=== PATIENT | female | born 1950 | race Caucasian/White ===

== ENCOUNTER → 2022-02-16 | Outpatient (CLI) | payer MEDICARE, BC, SELFPAY ==
[2022-02-16 08:47] LABS: Bacteria 0 SEEN /hpf (None Seen); Mucous, Urine 0 SEEN /hpf (<or=2+); Red Blood Cells-Urine 0 SEEN /hpf (0-5); White Blood Cells 0 SEEN /hpf (0-5)
[2022-02-16 10:20] LABS: Absolute Lymphocyte Count 1.67 X10^3/uL (0.83-4.51); Absolute Neutrophil Count 3.1 X10^3/uL (2.0-7.7); Basophil# 0.04 X10^3/uL; Basophil% 0.7 % (0-1); Eosinophil# 0.13 X10^3/uL; Eosinophils% 2.4 % (0-5); Lymphocyte # 1.67 X10^3/ul (0.83-4.51); Lymphocyte % 31.1 % (19-41); Mean Corp Hgb Conc 32.6 g/dL (32-36); Mean Corpuscular Hgb 30.4 pg (27.0-32.0); Mean Corpuscular Volume 93.3 fL (81-99); Mean Platelet Vol. 9.9 fl (6.2-12.0); Monocyte# 0.42 X10^3/uL; Monocyte% 7.8 % (0-10); NRBC Flagged by Analyzer 0 % (0-5); Neutrophil # 3.09 X10^3/uL (2.7-7.7); Neutrophil % 57.6 % (47-70); Platelet Count 268 K/mm3 (150-450); RBC Distribution Width CV 12.5 % (11.6-14.6); RBC Distribution Width SD 42.9 fl (35.1-43.9); Red Blood Count 4.93 M/mm3 (4.2-5.4); White Blood Count 5.4 K/mm3 (4.4-11.0)
[2022-02-16 10:23] LABS: Color, Urine Yellow (Yellow); Glucose, Dipstick Normal (Normal); Ketone-Dipstick Negative (Negative); Leukocyte Esterase-Dipstick Negative /ul (Negative); Nitrite-Dipstick Negative (Negative); Occult Blood-Urine Negative /ul (Negative); Protein-Dipstick Negative (Negative); Urine Bilirubin Dipstick Negative (Negative); Urine Clarity Clear (Clear); Urine Urobilinogen Normal (Normal)
[2022-02-16 10:29] LABS: Protein, Urine (Random) < 6.0 mg/dL (<11.9); Protein:Creat Ratio 297 mg/g CRE (0-200)
[2022-02-16 10:34] LABS: Squamous Epithelial Cells - UA 0-5 SEEN /hpf (5-10)
[2022-02-16 10:46] LABS: ALB/GLOB Ratio 1.1 RATIO (0.9-2.4); AST(SGOT) 19 U/L (15-37); Alanine Aminotransfer ALT/SGPT 28 U/L (13-56); Albumin, Serum 3.8 g/dL (3.2-5.0); Alkaline Phosphatase 90 U/L (45-117); Anion Gap 4 (5-15); BUN 18 mg/dL (7-18); BUN/Creat Ratio 21.1 RATIO (10-20); Chloride 105 mmol/L (98-107); Cholesterol 199 mg/dL (200); Creatinine, Serum 0.85 mg/dL (0.55-1.02); EST Glomerular Filtration Rate 70 mL/min (>60); Est Glom Filt Rate - Afr Amer 84 mL/min (>60); Globulin 3.4 g/dL (2.2-4.2); Glucose 89 mg/dL (74-106); High Density Lipoprotein 61 mg/dL; Potassium 3.8 mmol/L (3.5-5.1); Protein, Total 7.2 g/dL (6.4-8.2); Sodium Level 138 mmol/L (136-145); Triglycerides 92 mg/dL; Very Low Density Lipoprotein 18 mg/dL (5-40)
[2022-02-16 11:06] LABS: Vitamin D,25 Hydroxy 69.6 ng/mL
== END | disposition home or self-care (01) ==
LOC: MFPLAB 08:44
PROVIDERS: PCP Family Medicine; Referring Provider Family Medicine; Visit Provider Family Medicine
DX: E78.00 Pure hypercholesterolemia, unspecified (principal); E55.9 Vitamin D deficiency, unspecified
CPT/HCPCS: 36415; 80053; 80061; 81001; 82306; 82570; 84156; 85025

== ENCOUNTER → 2022-03-24 | Outpatient (CLI) | payer MEDICARE, BC, SELFPAY ==
--- NOTE | 2022-03-24 14:02 | CT_ITS ---
STUDY: LOW DOSE CT LUNG CANCER SCREENING REASON FOR EXAM: Female, 71 years old. SCREENING. The patient smoked 1 pack per day for 50 years. Former smoker. Patient with one and half years ago. RADIATION DOSAGE (If Supplied By Facility): CTDIvol = ( 3.02 ) mGy, DLP = ( 112.87 ) mGycm TECHNIQUE: No contrast was administered. Low dose technique was utilized (average mAS-38 and kVp 120). 1.25 mm axial source images with a slice interval of 1.25-mm were reconstructed in lung windows. 2.5 mm axial source images with a slice interval of 2.5-mm were reconstructed in lung windows. 5.0 mm axial source images with a slice interval of 5.0-mm were reconstructed in soft tissue windows. COMPARISON: None. NODULES: No suspicious nodules are seen. Emphysema: Hyperinflation. Findings suggestive of scarring at the lung apices more prominent in the right lung apex. Findings suggest some mild linear scarring in the anterior aspect of the right upper lobe. No suspicious nodules are seen. Endobronchial lesion: Unremarkable Aorta: Atherosclerotic calcific plaques of the aortic arch. CORONARY ARTERIES: Coronary artery calcification is seen. Heart: Unremarkable Pulmonary artery: Unremarkable Mediastinal nodes: Small mediastinal benign appearing lymph nodes. Other chest and abdominal findings: Small hiatal hernia. CT/Low Dose CT Lung Screening IMPRESSION: Lung-RADS category 2 - Continue annual screening with LDCT in 12 months. IMPORTANT NOTES FOR USE: ACR Lung-RADS Version 1.1 Assessment Categories Release Date: 2018 Category: Coded 0-4 bases on nodule(s) with highest degree of suspicion. Negative screen is defined as categories 1 and 2; a positive screen is defined as categories 3 and 4. Category 3 and 4A nodules that are unchanged on interval CT should be coded as category 2, and individuals returned to screening in 12 months. Category 4X: Category 3 or 4 nodules with additional imaging findings that increase the suspicion of lung cancer, such as spiculation, GGN that doubles in size in 1 year, enlarged lymph notes, etc. Category Modifiers: S (significant finding unrelated to lung cancer) Electronically Signed: Artemio Borja MD at 14:23 EDT ,
== END | disposition home or self-care (01) ==
LOC: CT 13:43
PROVIDERS: PCP Family Medicine; Referring Provider Family Medicine; Visit Provider Family Medicine
DX: Z87.891 Personal history of nicotine dependence (principal)
CPT/HCPCS: 71271

== ENCOUNTER → 2022-05-05 | Outpatient (CLI) | payer MEDICARE, BC, SELFPAY ==
[2022-05-05 15:12] LABS: ALB/GLOB Ratio 1.1 RATIO (0.9-2.4); AST(SGOT) 21 U/L (15-37); Alanine Aminotransfer ALT/SGPT 29 U/L (13-56); Albumin, Serum 3.8 g/dL (3.2-5.0); Alkaline Phosphatase 97 U/L (45-117); Anion Gap 2 (5-15); BUN 18 mg/dL (7-18); BUN/Creat Ratio 22.1 RATIO (10-20); Calcium,Total 8.9 mg/dL (8.5-10.1); Chloride 110 mmol/L (98-107); Cholesterol 193 mg/dL (200); Creatinine, Serum 0.82 mg/dL (0.55-1.02); EST Glomerular Filtration Rate 74 mL/min (>60); Est Glom Filt Rate - Afr Amer 89 mL/min (>60); Globulin 3.4 g/dL (2.2-4.2); Glucose 92 mg/dL (74-106); High Density Lipoprotein 54 mg/dL; Potassium 3.8 mmol/L (3.5-5.1); Protein, Total 7.2 g/dL (6.4-8.2); Sodium Level 142 mmol/L (136-145); Triglycerides 153 mg/dL; Very Low Density Lipoprotein 31 mg/dL (5-40); Vitamin D,25 Hydroxy 57.3 ng/mL
== END | disposition home or self-care (01) ==
LOC: MFPLAB 11:26
PROVIDERS: PCP Family Medicine; Referring Provider Family Medicine; Visit Provider Family Medicine
DX: E78.00 Pure hypercholesterolemia, unspecified (principal); E55.9 Vitamin D deficiency, unspecified
CPT/HCPCS: 36415; 80053; 80061; 82306

== ENCOUNTER → 2022-05-24 | Outpatient (CLI) | payer MEDICARE, BC, SELFPAY ==
--- NOTE | 2022-05-24 14:05 | BI_ITS ---
MAMMOGRAPHY - BILATERAL SCREENING REASON FOR EXAM: Female, 71 years old. Routine annual screening examination. PERTINENT HISTORY: Non-contributory. TECHNIQUE: Digital bilateral breast yudi (3D mammographic acquisition) in the CC and MLO projections. 2-D mediolateral oblique (MLO) and craniocaudad (CC) views of both breasts were obtained. CAD: Full Field Digital Mammography with Computer Added Detection was performed. COMPARISON: Comparison is made with prior PET/CT examination dated 04/27/2021. FINDINGS: Breast Composition: The breasts are heterogeneously dense, which may obscure small masses. There are no dominant masses or suspicious calcifications. Stable benign-appearing bilateral axillary lymph nodes. No other significant abnormalities are identified. There has been no significant change since the prior study. BI/SCRN MAMM (CAD)W/YUDI BILAT IMPRESSION: Stable bilateral screening mammogram. Yearly follow-up mammogram recommended. (A) ASSESSMENT CATEGORY: BIRADS Category 2: Benign. A letter regarding these results will be sent to the patient by the facility within 30 days. Approximately 10% of breast cancers are not detected by mammography. A normal mammogram should not delay biopsy of a clinically suspicious abnormality. [id number] Electronically Signed: Artemio Borja MD at 15:09 EDT ,
== END | disposition home or self-care (01) ==
LOC: OPBI 14:05
PROVIDERS: PCP Family Medicine; Referring Provider Family Medicine; Visit Provider Family Medicine
DX: Z12.31 Encounter for screening mammogram for malignant neoplasm of breast (principal)
CPT/HCPCS: 77063; 77067

== ENCOUNTER → 2023-02-08 | Outpatient (CLI) | payer MEDICARE, BC, SELFPAY ==
[2023-02-08 12:31] LABS: Absolute Lymphocyte Count 1.48 X10^3/uL (0.83-4.51); Absolute Neutrophil Count 3.7 X10^3/uL (2.0-7.7); Basophil# 0.05 X10^3/uL; Basophil% 0.8 % (0-1); Eosinophil# 0.29 X10^3/uL; Eosinophils% 4.9 % (0-5); Hematocrit 47.3 % (37-47); Hemoglobin 15.3 g/dL (12.0-15.0); Lymphocyte # 1.48 X10^3/ul (0.83-4.51); Mean Corp Hgb Conc 32.3 g/dL (32-36); Mean Corpuscular Hgb 30.5 pg (27.0-32.0); Mean Corpuscular Volume 94.4 fL (81-99); Mean Platelet Vol. 9.7 fl (6.2-12.0); Monocyte# 0.39 X10^3/uL; Monocyte% 6.6 % (0-10); NRBC Flagged by Analyzer 0 % (0-5); Neutrophil # 3.69 X10^3/uL (2.7-7.7); Neutrophil % 62.5 % (47-70); Platelet Count 296 K/mm3 (150-450); RBC Distribution Width CV 12.5 % (11.6-14.6); RBC Distribution Width SD 43.1 fl (35.1-43.9); Red Blood Count 5.01 M/mm3 (4.2-5.4); White Blood Count 5.9 K/mm3 (4.4-11.0)
[2023-02-08 12:33] LABS: ALB/GLOB Ratio 1.1 RATIO (0.9-2.4); AST(SGOT) 20 U/L (15-37); Alanine Aminotransfer ALT/SGPT 26 U/L (13-56); Alkaline Phosphatase 107 U/L (45-117); Anion Gap 7 (5-15); BUN 19 mg/dL (7-18); BUN/Creat Ratio 21.5 RATIO (10-20); Calcium,Total 9.7 mg/dL (8.5-10.1); Chloride 107 mmol/L (98-107); Cholesterol 182 mg/dL (200); Creatinine, Serum 0.88 mg/dL (0.55-1.02); EST Glomerular Filtration Rate 67 mL/min (>60); Est Glom Filt Rate - Afr Amer 81 mL/min (>60); Globulin 3.5 g/dL (2.2-4.2); Glucose 90 mg/dL (74-106); High Density Lipoprotein 59 mg/dL; Potassium 3.9 mmol/L (3.5-5.1); Protein, Total 7.5 g/dL (6.4-8.2); Sodium Level 140 mmol/L (136-145); Triglycerides 104 mg/dL; Very Low Density Lipoprotein 21 mg/dL (5-40)
[2023-02-08 12:37] LABS: Vitamin D,25 Hydroxy 58.2 ng/mL
== END | disposition home or self-care (01) ==
LOC: MFPLAB 09:38
PROVIDERS: PCP Family Medicine; Visit Provider Family Medicine
DX: E78.00 Pure hypercholesterolemia, unspecified (principal); E55.9 Vitamin D deficiency, unspecified
CPT/HCPCS: 36415; 80053; 80061; 82306; 85025

== ENCOUNTER → 2023-03-08 | Outpatient (CLI) | payer MEDICARE, BC, SELFPAY ==
--- NOTE | 2023-03-08 15:29 | BD_ITS ---
STUDY: DUAL ENERGY X-RAY ABSORPTIOMETRY / DXA REASON FOR EXAM: Female, 72 years old. 733.90OsteopeniaBONE DENSITY REASON FOR EXAM TECHNIQUE: Bone Mineral Density (BMD) measurements of lumbar spine and bilateral hips were obtained. COMPARISON: None. FINDINGS: Lumbar Spine (L1-L4): g/cm2 (0.914) / T-score (-1.2) / Z-score (1.0) Findings are suggestive of osteopenia with a low fracture risk. Left Femur Total: g/cm2 (0.849) / T-score (-0.8) / Z-score (0.8) Left Femoral Neck: g/cm2 (0.636) / T-score (-1.9) / Z-score (0.0) Right Femur Total: g/cm2 (0.866) / T-score (-0.6) / Z-score (1.0) Right Femoral Neck: g/cm2 (0.664) / T-score (-1.7) / Z-score (0.2) BD/Dexa Bone Density Study IMPRESSION: The patient is considered osteopenic as outlined below according to World Emanuel Organization (WHO) criteria with a moderate fracture risk. Reference Information: The T-score is the number of standard deviations above or below the standard which is normal for young adults at their peak bone mineral density. The World Health Organization (WHO) interprets the T-scores as follows: Above -1 Normal bone density Between -1 and -2.5 Osteopenia Equal to / or below -2.5 Osteoporosis As a practical clinical guideline, osteopenia may be graded as follows: Mild -1 through -1.5 Moderate -1.6 through -2.0 Severe -2.1 through -2.4 The Z-score is the number of standard deviations above or below age-matched controls. A Z-score of less than -1.5 would be considered abnormal. References: 1. NIH Osteoporosis and Related Bone Diseases www osteo.org 2. International Society for Clinical Densitometry www iscd.org 3. National Osteoporosis Foundation www nof.org Electronically Signed: Artemio Borja MD at 13:28 EDT ,
== END | disposition home or self-care (01) ==
LOC: OPBD 15:19
PROVIDERS: PCP Family Medicine; Referring Provider Family Medicine; Visit Provider Family Medicine
DX: M85.89 Other specified disorders of bone density and structure, multiple sites (principal)
CPT/HCPCS: 77080

== ENCOUNTER → 2023-04-02 | Outpatient (CLI) | payer MEDICARE, BC, SELFPAY | END | disposition home or self-care (01) | LOC: SL 09:24 | PROVIDERS: PCP Family Medicine; Referring Provider Nurse Practitioner Acute Care; Visit Provider Nurse Practitioner Acute Care | DX: G47.10 Hypersomnia, unspecified (principal) | CPT/HCPCS: 95806 ==

== ENCOUNTER → 2023-04-04 | Outpatient (CLI) | payer MEDICARE, BC, SELFPAY ==
--- NOTE | 2023-04-04 16:49 | CT_ITS ---
STUDY: LOW DOSE CT LUNG CANCER SCREENING REASON FOR EXAM: Female, 72 years old. quit 11/2020 RADIATION DOSAGE (If Supplied By Facility): CTDIvol = ( 3.02 ) mGy, DLP = ( 106.46 ) mGycm TECHNIQUE: No contrast was administered. Low dose technique was utilized (average mAS-38 and kVp 120). 1.25 mm axial source images with a slice interval of 1.25-mm were reconstructed in lung windows. 1.25 mm coronal and sagittal. Reformats COMPARISON: March 24 2022 NODULES: Nodule #: 1 Density: Solid Lung location: Anterior right middle lobe lobe: 0.6 cm from pleura Location in series: Series Number: 2 Image: 171 Size - D1 x D2 mm: 5 x 6 mm: 6 average diameter Margin: Indistinct Shape: Round within thin linear scar Calcification: None Fat: None Temporal comparison: Unchanged from March 24, 2022 Nodule #: 2 Density: Solid Lung location: Lateral left upper lobe lobe: 0.6 cm from pleura Location in series: Series Number: 2 Image: 119 Size - D1 x D2 mm: 3 x 3 mm: 3 average diameter Margin: Circumscribed Shape: Round Calcification: Central punctate Fat: None Temporal comparison: Unchanged from March 24, 2022 Nodule #: 3 Density: Solid Lung location: Lateral left upper lobe lobe: 0.4 cm from pleura Location in series: Series Number: 2 Image: 185 Size - D1 x D2 mm: 2 x 2 mm: 2 average diameter Margin: Circumscribed Shape: Round Calcification: None Fat: None Temporal comparison: New from March 24, 2022 Parenchyma: No airspace consolidation, effusion, pneumothorax. Endobronchial lesion: None Aorta: Mild aortic atherosclerosis without ectasia. CORONARY ARTERIES: Moderate calcified coronary atherosclerosis. Heart: No cardiomegaly. Minimal pericardial fluid of unlikely clinical significance, commonly seen in asymptomatic patients and without change from March 24, 2022 Pulmonary artery: No main pulmonary arterial enlargement. Mediastinal nodes: No mediastinal or bulky hilar adenopathy Other chest and abdominal findings: Unremarkable thyroid. Unremarkable esophagus. Normal adrenals. CT/Low Dose CT Lung Screening IMPRESSION: 2 mm medial right lower lobe nodule with unchanged lateral left upper lobe 3 mm nodule granuloma and 6 mm likely nodular scarring along the right middle lobe, overall: Lung-RADS category 2 - Continue annual screening with LDCT in 12 months. IMPORTANT NOTES FOR USE: ACR Lung-RADS Version 1.1 Assessment Categories Release Date: 2018 Category: Coded 0-4 bases on nodule(s) with highest degree of suspicion. Negative screen is defined as categories 1 and 2; a positive screen is defined as categories 3 and 4. Category 3 and 4A nodules that are unchanged on interval CT should be coded as category 2, and individuals returned to screening in 12 months. Category 4X: Category 3 or 4 nodules with additional imaging findings that increase the suspicion of lung cancer, such as spiculation, GGN that doubles in size in 1 year, enlarged lymph notes, etc. Category Modifiers: S (significant finding unrelated to lung cancer) Electronically Signed: Jeronimo Liu MD at 4:55 EDT ,
== END | disposition home or self-care (01) ==
LOC: CT 16:49
PROVIDERS: PCP Family Medicine; Referring Provider Nurse Practitioner Acute Care; Visit Provider Nurse Practitioner Acute Care
DX: F17.210 Nicotine dependence, cigarettes, uncomplicated (principal)
CPT/HCPCS: 71271

== ENCOUNTER → 2023-05-28 | Outpatient (CLI) | payer MEDICARE, BC, SELFPAY ==
--- NOTE | 2023-05-28 13:12 | BI_ITS ---
MAMMOGRAPHY - BILATERAL SCREENING REASON FOR EXAM: Female, 72 years old. Routine annual screening examination. PERTINENT HISTORY: Non-contributory. TECHNIQUE: Digital bilateral breast yudi (3D mammographic acquisition) in the CC and MLO projections. 2-D mediolateral oblique (MLO) and craniocaudad (CC) views of both breasts were obtained. CAD: Full Field Digital Mammography with Computer Added Detection was performed. COMPARISON: Comparison is made with prior study May 24, 2022. FINDINGS: Breast Composition: The breasts are heterogeneously dense, which may obscure small masses. There are no dominant masses or suspicious calcifications. Stable benign-appearing bilateral axillary lymph nodes. No other significant abnormalities are identified. There has been no significant change since the prior study. BI/SCRN MAMM (CAD)W/YUDI BILAT IMPRESSION: Stable bilateral screening mammogram. Yearly follow-up mammogram recommended. (A) ASSESSMENT CATEGORY: BIRADS Category 2: Benign. A letter regarding these results will be sent to the patient by the facility within 30 days. Approximately 10% of breast cancers are not detected by mammography. A normal mammogram should not delay biopsy of a clinically suspicious abnormality. [id number] Electronically Signed: Artemio Borja MD at 14:23 EDT ,
== END | disposition home or self-care (01) ==
LOC: OPBI 13:11
PROVIDERS: PCP Family Medicine; Referring Provider Family Medicine; Visit Provider Family Medicine
DX: Z12.31 Encounter for screening mammogram for malignant neoplasm of breast (principal)
CPT/HCPCS: 77063; 77067

== ENCOUNTER → 2023-08-15 | Outpatient (CLI) | payer MEDICARE, BC, SELFPAY ==
[2023-08-15 17:49] LABS: Hematocrit 46.4 % (37-47); Hemoglobin 14.6 g/dL (12.0-15.0); Mean Corp Hgb Conc 31.5 g/dL (32-36); Mean Corpuscular Hgb 30.3 pg (27.0-32.0); Mean Corpuscular Volume 96.3 fL (81-99); Mean Platelet Vol. 10.3 fl (6.2-12.0); Platelet Count 297 K/mm3 (150-450); RBC Distribution Width CV 12.5 % (11.6-14.6); RBC Distribution Width SD 44.4 fl (35.1-43.9); Red Blood Count 4.82 M/mm3 (4.2-5.4); White Blood Count 6.9 K/mm3 (4.4-11.0)
[2023-08-15 18:16] LABS: Vitamin D,25 Hydroxy 54.2 ng/mL
[2023-08-15 18:22] LABS: ALB/GLOB Ratio 1.2 RATIO (0.9-2.4); AST(SGOT) 19 U/L (15-37); Alanine Aminotransfer ALT/SGPT 21 U/L (13-56); Alkaline Phosphatase 83 U/L (45-117); Anion Gap 4 (5-15); BUN 20 mg/dL (7-18); BUN/Creat Ratio 20.4 RATIO (10-20); Calcium,Total 9.2 mg/dL (8.5-10.1); Chloride 106 mmol/L (98-107); Cholesterol 181 mg/dL (200); Creatinine, Serum 0.98 mg/dL (0.55-1.02); EST Glomerular Filtration Rate 59 mL/min (>60); Est Glom Filt Rate - Afr Amer 72 mL/min (>60); Globulin 3.4 g/dL (2.2-4.2); Glucose 131 mg/dL (74-106); High Density Lipoprotein 53 mg/dL; Potassium 3.7 mmol/L (3.5-5.1); Protein, Total 7.4 g/dL (6.4-8.2); Sodium Level 139 mmol/L (136-145); Triglycerides 165 mg/dL; Very Low Density Lipoprotein 33 mg/dL (5-40)
== END | disposition home or self-care (01) ==
LOC: MFPLAB 14:35
PROVIDERS: PCP Family Medicine; Visit Provider Family Medicine
DX: E78.00 Pure hypercholesterolemia, unspecified (principal); E55.9 Vitamin D deficiency, unspecified; R71.8 Other abnormality of red blood cells
CPT/HCPCS: 36415; 80053; 80061; 82306; 85027

== ENCOUNTER → 2023-08-22 | Outpatient (CLI) | payer MEDICARE, BC, SELFPAY ==
--- NOTE | 2023-08-23 10:12 | PFT ---
INTRODUCTION: The patient is a 73-year-old female who presents for pulmonary function studies secondary to a diagnosis of tobacco dependency. Respiratory therapy reported good patient effort. Bronchodilators were used during testing. INTERPRETATION: Forced expiration spirometry demonstrates no evidence of a large airways obstructive ventilatory defect. There was no significant response to aerosolized bronchodilators. Spirograms are of good quality and plateau normally. Body plethysmography was performed and revealed lung volumes to be within normal limits. Diffusing capacity by single breath CO was also within normal limits. IMPRESSION: Grossly normal pulmonary function studies.
== END | disposition home or self-care (01) ==
LOC: PSN 12:46
PROVIDERS: PCP Family Medicine; Visit Provider Internal Medicine Critical Care Medicine
DX: G47.34 Idiopathic sleep related nonobstructive alveolar hypoventilation (principal)
CPT/HCPCS: 94060; 94726; 94729

== ENCOUNTER → 2023-09-13 | Outpatient (CLI) | payer MEDICARE, BC, SELFPAY ==
--- NOTE | 2023-09-13 10:48 | ECHOD_ITS ---
Reason For Study: PHTN Procedure This was a 2D Doppler, Color Flow transthoracic echocardiogram. Exam performed in department. Left Ventricle Normal size and thickness. The left ventricular ejection fraction is 65 %. Stage 1 diastolic dysfunction. Right Ventricle Normal right ventricle. Atria The left and right atria are normal. Mitral Valve Trivial mitral valve insufficiency. Tricuspid Valve Trivial tricuspid valve insufficiency. Right ventricular systolic pressure estimated to be 35 mmHg. Aortic Valve Aortic sclerosis, no stenosis. Trivial aortic valve insufficiency. Pulmonic Valve The pulmonic valve is not well visualized. Trivial pulmonic valve insufficiency. Great Vessels Normal sized aortic root. Pericardium/Pleural No pericardial effusion. Epicardial fat. MMode/2D Measurements & Calculations LVIDd: 3.9 cm IVSd: 0.88 cm Ao root diam: 3.1 cm LVIDs: 2.6 cm LVPWd: 1.0 cm RVDd: 2.5 cm FS: 32.0 % LAV(MOD-bp): 35.3 ml LVAd ap4: 24.6 cm2 LVAd ap2: 23.3 cm2 LAV(MOD-bp) Indexed: 19.5 ml/m2 LVLd ap4: 7.1 cm LVLd ap2: 6.8 cm LAV(MOD-sp2): 32.2 ml EDV(MOD-sp4): 70.7 ml EDV(MOD-sp2): 65.3 ml LAV(MOD-sp4): 32.0 ml EDV(sp4-el): 72.8 ml EDV(sp2-el): 67.9 ml LVAs ap4: 14.3 cm2 LVAs ap2: 13.7 cm2 LVLs ap4: 5.8 cm LVLs ap2: 5.8 cm ESV(MOD-sp4): 29.8 ml ESV(MOD-sp2): 26.5 ml ESV(sp4-el): 30.1 ml ESV(sp2-el): 27.7 ml EF(MOD-sp4): 57.9 % EF(MOD-sp2): 59.4 % EF(sp4-el): 58.6 % SV(MOD-sp4): 40.9 ml SV(MOD-sp2): 38.8 ml SV(sp4-el): 42.7 ml LA dimension(2D): 3.0 cm LA A4 area: 12.5 cm2 RA A4 area: 11.6 cm2 TAPSE: 1.4 cm Time Measurements MV dec time: 0.20 sec Doppler Measurements & Calculations MV E max neftali: 58.9 cm/sec Lat Peak E' Neftali: 5.5 cm/sec Med Peak E' Neftali: 8.2 cm/sec MV A max neftali: 98.2 cm/sec E/E' lat: 10.7 E/E' med: 7.2 MV E/A: 0.60 MV V2 max: 101.0 cm/sec MV P1/2t max neftali: 53.6 cm/sec Ao V2 max: 119.3 cm/sec MV max P.1 mmHg MV P1/2t: 58.3 msec Ao max P.7 mmHg MV V2 mean: 50.8 cm/sec MV dec slope: 269.1 cm/sec2 Ao V2 mean: 83.6 cm/sec MV mean P.3 mmHg Ao mean P.1 mmHg MV V2 VTI: 17.4 cm MVA(P1/2t): 3.8 cm2 Ao V2 VTI: 25.6 cm AV (velocity ratio): 0.71 AI max neftali: 375.4 cm/sec LV V1 max: 83.0 cm/sec PA V2 max: 73.6 cm/sec AI max P.4 mmHg LV V1 max P.8 mmHg PA V2 mean: 56.1 cm/sec AI dec slope: 216.5 cm/sec2 LV V1 mean P.5 mmHg AI P1/2t: 507.8 msec LV V1 mean: 58.8 cm/sec LV V1 VTI: 18.1 cm TR max neftali: 226.4 cm/sec TR max P.5 mmHg ECHO/Echo Complete Interpretation Summary The left ventricular ejection fraction is 65 %. Stage 1 diastolic dysfunction. Right ventricular systolic pressure estimated to be 35 mmHg. Aortic sclerosis, no stenosis. Ordering Physician: David Chen Referring Physician: Bob Stewart Performed By: Prema Hernández RDCS, RVT
== END | disposition home or self-care (01) ==
LOC: CVS 10:47
PROVIDERS: PCP Family Medicine; Referring Provider Internal Medicine Critical Care Medicine; Visit Provider Internal Medicine Critical Care Medicine
DX: G47.34 Idiopathic sleep related nonobstructive alveolar hypoventilation (principal); I27.20 Pulmonary hypertension, unspecified
CPT/HCPCS: 93306

== ENCOUNTER → 2023-11-07 | Outpatient (CLI) | payer MEDICARE, BC, SELFPAY ==
[2023-11-07 17:50] LABS: Hematocrit 47.5 % (37-47); Hemoglobin 15.4 g/dL (12.0-15.0); Mean Corp Hgb Conc 32.4 g/dL (32-36); Mean Corpuscular Hgb 30.5 pg (27.0-32.0); Mean Corpuscular Volume 94.1 fL (81-99); Mean Platelet Vol. 10.3 fl (6.2-12.0); Platelet Count 306 K/mm3 (150-450); RBC Distribution Width CV 12.6 % (11.6-14.6); RBC Distribution Width SD 43.5 fl (35.1-43.9); Red Blood Count 5.05 M/mm3 (4.2-5.4); White Blood Count 6.7 K/mm3 (4.4-11.0)
[2023-11-07 18:08] LABS: Hemoglobin A1c 5.6 % (3.8-5.6)
[2023-11-07 18:11] LABS: ALB/GLOB Ratio 1.1 RATIO (0.9-2.4); AST(SGOT) 19 U/L (15-37); Alanine Aminotransfer ALT/SGPT 21 U/L (13-56); Albumin, Serum 4.1 g/dL (3.2-5.0); Alkaline Phosphatase 87 U/L (45-117); Anion Gap 6 (5-15); BUN 21 mg/dL (7-18); BUN/Creat Ratio 20.8 RATIO (10-20); Calcium,Total 9.4 mg/dL (8.5-10.1); Chloride 106 mmol/L (98-107); Cholesterol 201 mg/dL (200); Creatinine, Serum 1.01 mg/dL (0.55-1.02); EST Glomerular Filtration Rate 57 mL/min (>60); Est Glom Filt Rate - Afr Amer 69 mL/min (>60); Globulin 3.6 g/dL (2.2-4.2); Glucose 131 mg/dL (74-106); High Density Lipoprotein 56 mg/dL; Potassium 3.7 mmol/L (3.5-5.1); Protein, Total 7.7 g/dL (6.4-8.2); Sodium Level 140 mmol/L (136-145); Triglycerides 139 mg/dL; Very Low Density Lipoprotein 28 mg/dL (5-40)
== END | disposition home or self-care (01) ==
LOC: MFPLAB 14:55
PROVIDERS: Nurse Practitioner Family; PCP Family Medicine; Visit Provider Family Medicine
DX: R73.9 Hyperglycemia, unspecified (principal); E78.00 Pure hypercholesterolemia, unspecified
CPT/HCPCS: 36415; 80053; 80061; 83036; 85027

== ENCOUNTER → 2024-04-15 | Outpatient (CLI) | payer MEDICARE, BC, SELFPAY ==
--- NOTE | 2024-04-15 17:50 | CT_ITS ---
STUDY: LOW DOSE CT LUNG CANCER SCREENING REASON FOR EXAM: Female, 73 years old. smoker RADIATION DOSAGE (If Supplied By Facility): CTDIvol = ( 3.02 ) mGy, DLP = ( 108.35 ) mGycm TECHNIQUE: No contrast was administered. Low dose technique was utilized (average mAS-38 and kVp 120). 1.25 mm axial source images with a slice interval of 1.25-mm were reconstructed in lung windows. Coronal sagittal reformats obtained. COMPARISON: 04/04/2023, 03/24/2022 NODULES: Nodule 1: Unchanged solid 6 x 4 mm right middle lobe nodule, axial image 174, stable from 01/22/2022 Nodule 2: Unchanged solid 3 mm posterior lateral left upper lobe nodule, axial image 137, stable from 01/22/2022 No new or enlarging nodule. Parenchyma: No airspace consolidation, effusion, pneumothorax. Endobronchial lesion: No endobronchial lesion. Aorta: Mild aortic atherosclerosis without ectasia. CORONARY ARTERIES: Moderate left anterior descending calcified coronary atherosclerosis. Heart: No cardiomegaly or pericardial effusion. Pulmonary artery: No main pulmonary arterial enlargement. Mediastinal nodes: No mediastinal or bulky hilar adenopathy. Other chest and abdominal findings: Unremarkable thyroid. Unremarkable esophagus. No acute upper abdominal finding. CT/Low Dose CT Lung Screening IMPRESSION: Continued stability of small pulmonary nodules compared with March 24, 2022. No new or enlarging pulmonary nodules. No suspicious finding for malignancy. Lung-RADS category 2 - Continue annual screening with LDCT in 12 months. IMPORTANT NOTES FOR USE: ACR Lung-RADS Version 1.1 Assessment Categories Release Date: 2018 Category: Coded 0-4 bases on nodule(s) with highest degree of suspicion. Negative screen is defined as categories 1 and 2; a positive screen is defined as categories 3 and 4. Category 3 and 4A nodules that are unchanged on interval CT should be coded as category 2, and individuals returned to screening in 12 months. Category 4X: Category 3 or 4 nodules with additional imaging findings that increase the suspicion of lung cancer, such as spiculation, GGN that doubles in size in 1 year, enlarged lymph notes, etc. Category Modifiers: S (significant finding unrelated to lung cancer) Electronically Signed: Jeronimo Liu MD at 9:27 EDT ,
== END | disposition home or self-care (01) ==
LOC: CT 17:48
PROVIDERS: PCP Family Medicine; Referring Provider Nurse Practitioner Acute Care; Visit Provider Nurse Practitioner Acute Care
DX: F17.210 Nicotine dependence, cigarettes, uncomplicated (principal)
CPT/HCPCS: 71271

== ENCOUNTER → 2024-05-27 | Outpatient (CLI) | payer MEDICARE, BC, SELFPAY ==
[2024-05-27 17:53] LABS: Absolute Lymphocyte Count 1.76 X10^3/uL (0.83-4.51); Absolute Neutrophil Count 3.5 X10^3/uL (2.0-7.7); Basophil# 0.06 X10^3/uL; Eosinophil# 0.15 X10^3/uL; Eosinophils% 2.6 % (0-5); Hematocrit 45.4 % (37-47); Hemoglobin 14.7 g/dL (12.0-15.0); Lymphocyte # 1.76 X10^3/ul (0.83-4.51); Lymphocyte % 30.1 % (19-41); Mean Corp Hgb Conc 32.4 g/dL (32-36); Mean Corpuscular Hgb 30.1 pg (27.0-32.0); Mean Platelet Vol. 10.1 fl (6.2-12.0); Monocyte# 0.39 X10^3/uL; Monocyte% 6.7 % (0-10); NRBC Flagged by Analyzer 0 % (0-5); Neutrophil # 3.47 X10^3/uL (2.7-7.7); Neutrophil % 59.4 % (47-70); Platelet Count 298 K/mm3 (150-450); RBC Distribution Width CV 12.5 % (11.6-14.6); RBC Distribution Width SD 42.7 fl (35.1-43.9); Red Blood Count 4.88 M/mm3 (4.2-5.4); White Blood Count 5.8 K/mm3 (4.4-11.0)
[2024-05-27 18:18] LABS: Vitamin D,25 Hydroxy 49.2 ng/mL
[2024-05-27 18:28] LABS: ALB/GLOB Ratio 1.1 RATIO (0.9-2.4); AST(SGOT) 19 U/L (15-37); Alanine Aminotransfer ALT/SGPT 23 U/L (13-56); Albumin, Serum 3.9 g/dL (3.2-5.0); Alkaline Phosphatase 100 U/L (45-117); Anion Gap 4 (5-15); BUN 13 mg/dL (7-18); BUN/Creat Ratio 14.1 RATIO (10-20); Calcium,Total 9.3 mg/dL (8.5-10.1); Chloride 106 mmol/L (98-107); Cholesterol 186 mg/dL (200); Creatinine, Serum 0.92 mg/dL (0.55-1.02); EST Glomerular Filtration Rate 64 mL/min (>60); Est Glom Filt Rate - Afr Amer 77 mL/min (>60); Globulin 3.4 g/dL (2.2-4.2); Glucose 99 mg/dL (74-106); Hemoglobin A1c 5.6 % (3.8-5.6); High Density Lipoprotein 63 mg/dL; Protein, Total 7.3 g/dL (6.4-8.2); Sodium Level 139 mmol/L (136-145); Triglycerides 75 mg/dL; Very Low Density Lipoprotein 15 mg/dL (5-40)
== END | disposition home or self-care (01) ==
LOC: MFPLAB 15:29
PROVIDERS: PCP Family Medicine; Visit Provider Family Medicine
DX: R94.4 Abnormal results of kidney function studies (principal); E78.00 Pure hypercholesterolemia, unspecified; E55.9 Vitamin D deficiency, unspecified; R73.9 Hyperglycemia, unspecified
CPT/HCPCS: 36415; 80053; 80061; 82306; 83036; 85025

== ENCOUNTER → 2024-05-29 | Outpatient (CLI) | payer MEDICARE, BC, SELFPAY ==
--- NOTE | 2024-05-29 13:59 | BI_ITS ---
MAMMOGRAPHY - BILATERAL SCREENING REASON FOR EXAM: Female, 73 years old. Routine annual screening examination. PERTINENT HISTORY: Non-contributory. TECHNIQUE: Digital bilateral breast yudi (3D mammographic acquisition) in the CC and MLO projections. 2-D mediolateral oblique (MLO) and craniocaudad (CC) views of both breasts were obtained. CAD: Full Field Digital Mammography with Computer Added Detection was performed. COMPARISON: Comparison is made with prior study May 28, 2023 and May 24, 2022. FINDINGS: Breast Composition: The breasts are heterogeneously dense, which may obscure small masses. There are no dominant masses or suspicious calcifications. A tissue clip marker is seen in the anterior upper lateral aspect of the left breast. Stable benign-appearing bilateral axillary lymph nodes. No other significant abnormalities are identified. There has been no significant change since the prior study. BI/SCRN MAMM (CAD)W/YUDI BILAT IMPRESSION: Stable bilateral screening mammogram. Yearly follow-up mammogram recommended. (A) ASSESSMENT CATEGORY: BIRADS Category 2: Benign. A letter regarding these results will be sent to the patient by the facility within 30 days. Approximately 10% of breast cancers are not detected by mammography. A normal mammogram should not delay biopsy of a clinically suspicious abnormality. [id number] Electronically Signed: Artemio Borja MD at 15:01 EDT ,
== END | disposition home or self-care (01) ==
LOC: OPBI 13:59
PROVIDERS: PCP Family Medicine; Referring Provider Family Medicine; Visit Provider Family Medicine
DX: Z12.31 Encounter for screening mammogram for malignant neoplasm of breast (principal)
CPT/HCPCS: 77063; 77067

== ENCOUNTER 2025-02-18 11:54 | Emergency (ER) | payer MEDICARE, BC, SELFPAY ==
[2025-02-18 11:57] VITALS: BP 137/93; PULSE 106; RESP 16; TEMP 36.7; O2SAT 100; BMI 28.4
--- NOTE | 2025-02-18 12:05 | EKG12_ITS ---
Test Reason : DYSP Blood Pressure : */* mmHG Vent. Rate : 86 BPM Atrial Rate : 86 BPM P-R Int : 162 ms QRS Dur : 92 ms QT Int : 362 ms P-R-T Axes : 50 -9 20 degrees QTcB Int : 433 ms Sinus rhythm with marked sinus arrhythmia Possible Left atrial enlargement Incomplete right bundle branch block Septal infarct , age undetermined Abnormal ECG Confirmed by Jeromy Justice ([id number]), photograph editor ANDRE PARDO ([id number]) on 02/19/2025 6:52:17 AM Referred By: Augustine Confirmed By: Jeromy Justice
[2025-02-18 13:30] VITALS: BP 135/83; PULSE 72; RESP 16; O2SAT 99
[2025-02-18 13:53] VITALS: BP 135/83; PULSE 91; RESP 18; TEMP 36.6; O2SAT 100
--- NOTE | 2025-02-18 13:54 | EX.ED.DYSGE1 ---
HPI History of Present Illness Chief Complaint: General Illness Detail of Chief Complaint: Head feels heavy. Nasal drainage. Informant: patient Onset/Context/Timing Onset: Days Context: Gradual Onset Timing: Continuous Current Severity: Mild Maximum Severity: Mild Narrative Narrative: 74-year-old female is on oxygen at night. she has high cholesterol. Said her head feels heavy. She has had prior symptoms like this before. She is having a lot of nasal and throat drainage. She denies any headache. PCP started on Rosanna. She did not think it was helping. She stopped it. She had prior ear tubes again that did not help in the past. She really denies shortness of breath. She denies any chest pain. She said she does [employer] classes III times a week and she has not had any trouble doing that. She has no exertional chest pain or exertional dyspnea. Prior similar symptoms: Yes Recent Illness/Hospitalization: No [facility] Medical History On home oxygen therapy Dog bite of right lower leg Home Medications ?Medication ?Instructions ?Recorded ?Last Taken ?Type aspirin 81 mg tablet,delayed 81 mg PO DAILY 03/22/23 Unknown History release (Adult Aspirin Regimen) cholecalciferol (vitamin D3) 50 50 mcg PO DAILY 03/22/23 Unknown History mcg (2,000 unit) capsule folic acid 20 mg capsule 20 mg PO DAILY 03/22/23 Unknown History multivitamin with minerals-folic 1 tab PO DAILY 03/22/23 Unknown History acid 80 mcg chewable tablet (Centrum Adult 50 Plus) pravastatin 40 mg tablet 40 mg PO DAILY 03/22/23 Unknown History prednisone 20 mg tablet 40 mg (2 x 20 mg) PO DAILY 7 days 02/18/25 Unknown Rx #14 tabs Allergy/AdvReac Type Severity Reaction Status Date / Time amoxicillin Allergy Intermediate Rash Verified 02/18/25 11:57 Surgical History Independence teeth removed Social History Smoking Status: Former smoker quit date: 03/10/21 Tobacco: How many years used: 50 ROS ROS ED ROS Narrative Nasal drainage. Constitutional Constitutional ED: Denies fever(s) Eyes Eyes: Denies blurry vision ENT ENT ED: Denies ear pain Cardiovascular Cardiovascular: Denies chest pain, palpitations or racing heartbeat Respiratory/Chest Respiratory/Chest: Denies cough, dyspnea or dyspnea on exertion Gastrointestinal Gastrointestinal: Denies abdominal pain, diarrhea, melena, nausea or vomiting Genitourinary Genitourinary ED: Denies dysuria or hematuria Musculoskeletal Musculoskeletal: Denies arthralgias Integumentary Denies abscess Neurologic Neurologic: Denies headache(s) or paresthesias Psychiatric Psychiatric: Denies anxiety or depression Endocrine Endocrinology: Denies cold intolerance Hematologic/Lymphatic Hematologic/Lymphatic: Reports none Allergic/Immunologic Allergic/Immunologic ED: Denies mouth swelling, tongue swelling or urticaria EXAM Physical Exam Narrative Exam Narrative: [id number] female sitting upright in bed. Vital signs are stable afebrile. She looks quite well. Pulse ox 100% on room air no signs of hypoxia. No distress. H EENT exam pupils round reactive light. TMs are scared by wax. Nasal congestion. No pus. No frontal or maxillary sinus tenderness. Posterior pharynx moist and pink. Neck nontender no JVD. No lymphadenopathy. Lungs clear to auscultation bilateral. Heart regular rhythm rate about 85 no murmur. Chest wall ribs nontender. Abdomen is soft, nontender nondistended normal bowel sounds without peritoneal signs. She is moving all 4 extremities. 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 Dorsi plantarflexion intact. Calves are nontender without edema or cords. Back nontender. Neurologically she is awake alert. Answer questions following commands. NIH 0. She has a very benign normal exam. Const Vital Signs: 02/18/25 11:57 02/18/25 13:30 02/18/25 13:30 Temperature 98.0 F Temperature Source Oral Pulse Rate 106 H 72 Respiratory Rate 16 16 Respiratory Effort Normal Non-Labored Respiratory Pattern Normal Blood Pressure 137/93 H 135/83 H Blood Pressure Mean 107 100 Pulse Ox 100 99 Oxygen Delivery Method Room Air Room Air Positive well nourished and well developed; Negative for cachectic, contractures or unkempt General Appearance ED: well developed and NAD; Negative for unkempt, cachectic, contractures, cyanotic, diaphoretic or pallor Nutritional Appearance: Negative for cachectic HEENT Reports moist mucous membranes Negative for trauma or tenderness Eyes PERRL and EOMs intact bilaterally General Eye ED: Negative for pale conjunctiva or scleral icterus Neck no lymphadenopathy, supple and no JVD Chest Wall inspection of chest normal and palpation of chest normal Resp normal respiratory effort and clear to auscultation bilaterally Effort and Inspection: Negative for retractions Auscultation: Negative for rales, rhonchi, wheezes or diminished lung sounds Cardio regular rate, regular rhythm, S1 normal heart sound, S2 normal heart sound and no murmurs GI normal to inspection, nondistended, normoactive bowel sounds, non-tender, non-distended and no masses Inspection: Negative for abdominal distention Palpation: soft; Negative for tender, guarding or rebound tenderness present Back/Spine no CVA tenderness General Back: Negative for CVA tenderness Cervical Spine: Negative for cervical spine tenderness Thoracic Spine / Upper Back: Negative for thoracic spinal tenderness or paraspinal muscle tenderness Lumbar Spine / Lower Back: Negative for lumbar spinal tenderness Extremity normal to inspection General Extremety ED: Negative for edema or tenderness General Extremity: Negative for edema Neuro oriented x3 and CN's II-XII intact bilaterally Sensorium / Orientation: alert; Negative for orientation impaired, lethargic or stuporous Motor Exam: strength 5/5 throughout Psych mental status grossly normal Appearance: Negative for unkempt Attitude: No agitated Mood & Affect: Negative for depressed, anxious or tearful Skin no rashes or lesions noted, no wounds and skin turgor normal General Skin Exam: Negative for jaundice or pallor Lesions: No lesion noted Rashes: No rashes noted Trauma: Negative for abrasion Wounds: Negative for wounds noted MDM MDM MDM Narrative Medical decision making narrative: 74-year-old female states her head feels heavy. She has had this before when she had seasonal allergies. Her exam was completely normal. She had an EKG done that was unremarkable through triage. I explained to the patient I am happy to do test such as a CBC and chemistry chest x-ray etc. She did not want any testing. She will be started on prednisone 40 mg a day to see if it helps her symptoms she will follow-up with her primary care physician if not improving for further evaluation. History & Record Review Discussion w/independent historian: Patient Additional record(s) reviewed:: Prior inpatient record, Prior outpatient record, Prior ED visit and Prior labs Lab Data Lab results narrative: Patient did not want any labs or imaging. Rhythm Strip Rhythm Strip: Sinus Rhythm Rate: 86 Ectopy: None EKG Initial EKG: Attestation: I personally reviewed and interpreted this EKG as follows: Interpretation: Sinus Rhythm and No Acute Injury Pattern Comments: Normal sinus rhythm rate 86 no acute signs of [place] nor ischemia Discharge Plan Triage Chief Complaint: General Illness ED Provider: Javon Hairston Dx/Rx/DC Orders Clinical Impression: Seasonal allergies Instructions: ED Seasonal Allergy Prescriptions: New prednisone 20 mg tablet 40 mg PO DAILY 7 Days Qty: 14 0RF No Action pravastatin 40 mg tablet 40 mg PO DAILY cholecalciferol (vitamin D3) 50 mcg (2,000 unit) capsule 50 mcg PO DAILY aspirin [Adult Aspirin Regimen] 81 mg tablet,delayed release (DR/EC) 81 mg PO DAILY Centrum Adult 50 Plus 80 mcg tablet,chewable 1 tab PO DAILY folic acid 20 mg capsule 20 mg PO DAILY Primary Care Provider: Bob Stewart Referrals: Bob Stewart MD [Primary Care Provider] - 1 Week if not improving Activity Restrictions/Additional Instructions: This may or may not be secondary to seasonal allergies. Prednisone 40 mg once a day for 1 week. Follow-up with your doctor if not improving. Return the emergency department if you are feeling worse. Your exam is normal today. Print Language: Cymraes Disposition Disposition: Home, Self Care
[2025-02-18] MEDS: predniSONE 20 MG Tablet 40 MG PO (13:57)
== END 2025-02-18 14:16 | disposition home or self-care (01) ==
PROVIDERS: Emergency Provider Emergency Medicine; PCP Family Medicine; Visit Provider Emergency Medicine
DX: J30.2 Other seasonal allergic rhinitis (principal); E78.00 Pure hypercholesterolemia, unspecified; Z79.899 Other long term (current) drug therapy; Z87.891 Personal history of nicotine dependence
CPT/HCPCS: 93005; 99282

== ENCOUNTER → 2025-04-18 | Outpatient (CLI) | payer MEDICARE, BC, SELFPAY ==
--- NOTE | 2025-04-18 09:48 | CT_ITS ---
PROCEDURE: LOW DOSE CT LUNG SCREENING 04/18/2025 REASON FOR EXAM: SMOKER QUIT 2020 1/2 pack per day smoker times 50 years TECHNIQUE: LOW DOSE CT LUNG SCREENING Coronal and Sagittal reconstruction series were provided. One or more dose reduction techniques were used (e.g., Automated exposure control, adjustment of the mA and/or kV according to patient size, use of iterative reconstruction technique). REFERENCE LINK: Futurederm Lung-RADS RADIATION DOSE SUMMARY: CTDlvol: 3.02 mGy DLP: 109.48 mGycm COMPARISON: 04/15/2024 FINDINGS: PULMONARY NODULES: (Only nodules >3mm are reported) Lung windows show the lungs to be normally expanded. There is stable nonspecific pleural thickening in the right upper lobe on axial image 52 unchanged from the previous study. There is a stable 6 mm noncalcified nodule in the right middle lobe on axial image 183, and a stable subpleural 4 mm right middle lobe nodule on axial image 131. Chronic interstitial changes in both lung carver with chronic bronchitis, no superimposed infiltrate, or effusion, or suspicious new noncalcified mass or nodule. Limited soft tissue windows show a normal-appearing thyroid gland. No suspicious adenopathy. There are calcified coronary vessels. The thoracic aorta tapers normally. Limited cuts through the upper abdomen do not show a suspicious abnormality. Bony structures show degenerative change CT/Low Dose CT Lung Screening IMPRESSION: Chronic changes in both lung carver with stable right middle lobe nodules. No interval change since the previous study Coronary artery calcification (CAC) is is present Lung-RADS Category: 2 BENIGN (BASED ON IMAGING FEATURES OR INDOLENT BEHAVIOR). RECOMMEND 12-MONTH SCREENING LDCT. Other Significant Findings: Reading Location: [id number]
--- OUTSIDE RECORDS SUMMARY | 2025-04-18 09:48 | XMS RPT_ITS | CCD ---
Author Organization [facility] Care Team Providers Care Nurse Examiner Name Role Phone Micheline Zuniga MD Primary Care Provider Dr. Bob Stewart Primary Care Provider [phone] Dr. Bob Stewart Referring Provider DORA Chisholm NP Attending Provider [phone] Randy ANNE PA Sunil Ponce Attending Provider Micheline Zuniga MD Primary Care Provider Dr. Bob Stewart Primary Care Provider Dr. Bob Stewart Referring Provider DORA Chisholm NP Attending Provider [phone] Randy ANNE, PA Sunil Ponce Attending Provider Dr. David Chen Attending Provider Dr. Bob Stewart Primary Care Provider Dr. Bob Stewart Referring Provider Dr. David Chen Referring Provider Dr. David Chen Other Provider Dr. Derick Beck Attending Provider Dr. Timi Suh Attending Provider Dr. Bob Stewart Primary Care Provider Dr. Bob Stewart Referring Provider Dr. Timi Suh Referring Provider DORA Chisholm NP Attending Provider [phone] Micheline Zuniga MD Primary Care Provider [phone] Dr. Bob Stewart MD Primary Care Provider Dr. Javon Hairston MD Emergency Provider Bob Stewart Referring Unavailable Bob Stewart Primary Care Unavailable Bob Stewart Attending Unavailable Bob Stewart Primary Care Unavailable Javon Hairston Attending Unavailable Bob Stewart Primary Care Unavailable Kathrine HELPER TEACHER, Gege Attending Unavailable Kathrine HELPER TEACHER, Gege Referring Unavailable Bob Stewart Referring Unavailable Kathrine HELPER TEACHER, Gege Attending Unavailable Bob Stewart Primary Care Unavailable Bob Stewart Primary Care Unavailable Bob Stewart Attending Unavailable Allergies Allergy Classification Reported Allergen(s) Allergy Type Date of Onset Reaction(s) Facility (12 sources) Amoxicillin Drug Allergy 07-11-2005 [facility] (1 source) Amoxicillin Drug Allergy 02-18-2025 [facility] Repository Medications Current Medications Medication Drug Class(es) Dates Sig (Normalized) Sig (Original) aspirin 81 mg delayed release oral tablet (14 sources) Platelet Aggregation Inhibitor, Nonsteroidal Anti-inflammatory Drug Start: 09-09-2007 take 1 tablet by mouth once daily Aspirin (Adult Aspirin Regimen) 81 mg tablet,delayed release (DR/EC) Active 81 mg PO DAILY March 22, 2023 12:00am Comment on above: Take one(1) tablet d aily. CENTRUM SILVER TAB (6 sources) Start: 07-12-2006 CENTRUM SILVER TAB Take one(1) tablet daily. 1 0 07/12/2006 Active Comment on above: Take one(1) tablet d aily. cholecalciferol 0.05 mg oral capsule (14 sources) Vitamin D Start: 03-22-2023 take 1 capsule by mouth once daily Cholecalciferol (Vitamin D3) 50 mcg (2,000 unit) capsule Active 50 ug PO DAILY March 22, 2023 12:00am Start: 07-04-2016 take 1 tablet by anneliese th once daily Cholecalciferol, Vitamin D3, 2,000 unit cap Take 1 tablet by mouth once daily. 0 07/04/2016 Active Comment on above: Take 1 tablet by anneliese th once daily. folic acid 20 mg oral capsule (14 sources) Start: 07-13-2023 take 1 capsule by mouth once daily Folic Acid 20 mg capsule Active 20 mg PO DAILY March 22, 2023 12:00am Start: 02-04-2016 take 2 tablets by [facility] once daily folic acid 1 mg tablet Take 2 tablets by mouth once daily. 180 tablet 3 02/04/2016 Active Comment on above: Take 2 tablets by [facility] once daily. Multivit With Min-Folic Acid (Centrum Adult 50 Plus) 80 mcg tablet,chewable (8 sources) Start: 03-22-2023 Multivit With Min-Folic Acid (Centrum Adult 50 Plus) 80 mcg tablet,chewable Active 1 {tbl} PO DAILY March 22, 2023 12:00am Start: 03-22-2023 take 1 tablet by anneliese once daily Multivit With Min-Folic Acid (Centrum Adult 50 Plus) 80 mcg tablet,chewable Active 1 TABLET PO DAILY March 21, 2023 11:00pm Start: 03-22-2023 take 1 tablet by anneliese once daily Multivit With Min-Folic Acid (Centrum Adult 50 Plus) 80 mcg tablet,chewable Active 1 TABLET PO DAILY March 22, 2023 12:00am omega-3 fatty acids/vitamin e(FISH OIL 1,000 MG CAP) (6 sources) Start: 11-05-2009 omega-3 fatty acids/vitamin e(FISH OIL 1,000 MG CAP) Take one(1) tablet daily. 0 11/05/2009 Active Comment on above: Take one(1) tablet d aily. pravastatin sodium 40 mg oral tablet (14 sources) HMG-CoA Reductase Inhibitor Start: 03-22-2023 take 1 tablet by mouth once daily Pravastatin 40 mg tablet Active 40 mg PO DAILY March 22, 2023 12:00am Start: 01-16-2022 End: 01-16-2023 take 1 tablet by mouth once daily pravastatin (PRAVACHOL) 20 mg tablet Indications: Mixed hyperlipidemia Take 1 tablet by mouth once daily. 90 tablet 3 01/16/2022 01/16/2023 Active Start: 10-18-2020 End: 01-16-2022 take 1 tablet by mouth once daily pravastatin (PRAVACHOL) 10 mg tablet Take 1 tablet by mouth once daily. 90 tablet 0 12/28/2021 01/16/2022 Discontinued Comment on above: Take 1 tablet by anneliese once daily. predniSONE 20 mg oral tablet (1 source) Start: 02-18-2025 take 2 tablets by mouth once daily Prednisone 20 mg tablet Active 40 mg PO DAILY 14 February 18, 2025 12:00am Completed/Discontinued Medications Medication Drug Class(es) Dates Sig (Normalized) Sig (Original) cefuroxime 500 mg oral tablet (6 sources) Cephalosporin Antibacterial Start: 05-22-2023 End: 08-09-2023 take 1 tablet by mouth twice daily Cefuroxime Axetil 500 mg tablet Discontinued 500 mg PO TWICE A DAY May 22, 2023 12:00am August 09, 2023 9:44am Problems Active Problems Problem Classification Problem Date Documented Da te Episodic/Chronic Disorders of lipid metabolism (7 sources) Hyperlipidemia; Translations: [Hyperlipidemia, unspecified] Onset: 10-29-2012 10-29-2012 Chronic Diverticulosis and diverticulitis (6 sources) Diverticulosis of colon; Translations: [Diverticulosis of large intestine without perforation or abscess without bleeding] 07-11-2006 Chronic Hemorrhoids (6 sources) Hemorrhoids; Translations: [Unspecified hemorrhoids] 07-11-2006 Episodic Nonmalignant breast conditions (6 sources) Fibrosclerosis of breast; Translations: [Fibrosclerosis of unspecified breast] 07-11-2006 Chronic Open wounds of extremities (10 sources) Dog bite of lower leg; Translations: [Open bite, right lower leg, initial encounter] 05-22-2023 Episodic Other and unspecified benign neoplasm (6 sources) History of polyp of colon; Translations: [Personal history of colonic polyps] 07-11-2006 Episodic Other gastrointestinal disorders (6 sources) Irritable bowel syndrome; Translations: [Irritable bowel syndrome without diarrhea] 07-11-2006 Chronic Other hematologic conditions (1 source) Erythrocytosis; Translations: [Secondary polycythemia] Episodic Other upper respiratory disease (1 source) Seasonal allergy; Translations: [Other seasonal allergic rhinitis] 02-18-2025 Chronic Other upper respiratory disease (1 source) Other specified disorders of nose and nasal sinuses; Translations: [Other specified disorders of nose and nasal sinuses] Onset: 02-25-2025 Episodic Residual codes; unclassified (8 sources) Daytime hypersomnia; Translations: [Hypersomnia, unspecified] 03-22-2023 Chronic Residual codes; unclassified (3 sources) Hypersomnia, unspecified; Translations: [Hypersomnia, unspecified] 03-22-2023 Chronic Residual codes; unclassified (6 sources) Hypoxia; Translations: [Idiopathic sleep related nonobstructive alveolar hypoventilation] 04-27-2023 Chronic Residual codes; unclassified (8 sources) Idiopathic sleep related nonobstructive alveolar hypoventilation; Translations: [Idiopathic sleep related non-obstructive alveolar hypoventilation] 04-27-2023 Chronic Spondylosis; intervertebral disc disorders; other back problems (6 sources) Degeneration of intervertebral disc; Translations: [Degeneration of intervertebral disc, site unspecified] 07-11-2006 Chronic Substance-related disorders (20 sources) Cigarette smoker ; Translations: [Nicotine dependence, cigarettes, uncomplicated] Onset: 07-11-2024 03-22-2023 Chronic Comment on above: Ordered for March 4Quit smoking 2020, smoked 1/2 pack/day x 50 years Past or Other Problems Problem Classification Problem Date Documented Da te Episodic/Chronic Essential hypertension (1 source) Hypertensive disorder; Translations: [Essential (primary) hypertension] Onset: 09-22-2010 Resolved: 10-29-2012 10-29-2012 Chronic Other bone disease and musculoskeletal deformities (6 sources) Osteopenia; Translations: [Other specified disorders of bone density and structure, unspecified site] Onset: 07-25-2011 09-05-2021 Episodic Other screening for suspected conditions (not mental disorders or infectious disease) (5 sources) Patient encounter status; Translations: [Encounter for screening mammogram for malignant neoplasm of breast] Onset: 06-23-2024 Episodic Other skin disorders (6 sources) Disorder of skin and/or subcutaneous tissue; Translations: [Disorder of the skin and subcutaneous tissue, unspecified] Onset: 07-12-2005 07-12-2005 Episodic Residual codes; unclassified (6 sources) Tobacco use and exposure - finding; Translations: [Tobacco use] Onset: 03-29-2017 03-29-2017 Episodic Results Test Name Value Interpretation Reference Range Facility 12 Lead EKGon 02-18-2025 12 Lead EKG [facility] Cardiovascular Services [address] [place] [address] 12 Lead EKG 02/18/25 1205 MR#: [id number] Acct: [id number] Name: AQUILES MCCLENDON Rep #: [id number] : 1950 74 From: Jeromy Justice MD Attending Dr: Status: DEP ER Ordering Dr: Javon Hairston MD Date: 02/18/25 Location: ED Sex: F C Admitted: Test Reason : DYSP Blood Pressure : */* mmHG Vent. Rate : 86 BPM Atrial Rate : 86 BPM P-R Int : 162 ms QRS Dur : 92 ms QT Int : 362 ms P-R-T Axes : 50 -9 20 degrees QTcB Int : 433 ms Sinus rhythm with marked sinus arrhythmia Possible Left atrial enlargement Incomplete right bundle branch block Septal infarct , age undetermined Abnormal ECG Confirmed by Jeromy Justice ([id number]), market editor ANDRE PARDO ([id number]) on 02/19/2025 6:52:17 AM Referred By: Augustine Confirmed By: Jeromy Justice 02/19/25 0652 Date Jeromy Justice MD CC: Dr. Javon Hairston MD; Dr. Bob Stewart MD Signed Normal [facility] Emergency Department Summary on 02-18-2025 Emergency Department Summary [facility] Medical Records Department [address] [place] [address] Emergency Department Summary 02/18/25 MR#: [id number] Acct: [id number] Name: AQUILES MCCLENDON Rep #: [id number] : 1950 74 From: Javon Hairston MD PCP: Dr. Bob Stewart MD Status:REG ER Location: ED HPI History of Present Illness Chief Complaint: General Illness Detail of Chief Complaint: Head feels heavy. Nasal drainage. Informant: patient Onset/Context/Timing Onset: Days Context: Gradual Onset Timing: Continuous Current Severity: Mild Maximum Severity: Mild Narrative Narrative: 74-year-old female is on oxygen at night. she has high cholesterol. Said her head feels heavy. She has had prior symptoms like this before. She is having a lot of nasal and throat drainage. She denies any headache. PCP started on Rosanna. She did not think it was helping. She stopped it. She had prior ear tubes again that did not help in the past. She really denies shortness of breath. She denies any chest pain. She said she does [employer] classes III times a week and she has not had any trouble doing that. She has no exertional chest pain or exertional dyspnea. Prior similar symptoms: Yes Recent Illness/Hospitalizat ion: No [facility] Medical History On home oxygen therapy Dog bite of right lower leg Home Medications ???Medication ???Instructions ???Recorded ???Last Taken ???Type aspirin 81 mg tablet,delayed 81 mg PO DAILY 03/22/23 Unknown Hi story release (Adult Aspirin Regimen) cholecalciferol (vitamin D3) 50 50 mcg PO DAILY 03/22/23 Unknown H istory mcg (2,000 unit) capsule folic acid 20 mg capsule 20 mg PO DAILY 03/22/23 Unknown Hi story multivitamin with minerals-folic 1 tab PO DAILY 03/22/23 Unknown Hi story acid 80 mcg chewable tablet (Centrum Adult 50 Plus) pravastatin 40 mg tablet 40 mg PO DAILY 03/22/23 Unknown Hi story prednisone 20 mg tablet 40 mg (2 x 20 mg) PO DAILY 7 days 02/18/25 Unknown Rx #14 tabs Allergy/AdvReac Type Severity Reaction Status Date / Time amoxicillin Allergy Intermediate Rash Verified 02/18/25 11:57 Surgical History [place] teeth removed Social History Smoking Status: Former smoker quit date: 03/10/21 Tobacco: How many years used: 50 ROS ROS ED ROS Narrative Nasal drainage. Constitutional Constitutional ED: Denies fever(s) Eyes Eyes: Denies blurry vision ENT ENT ED: Denies ear pain Cardiovascular Cardiovascular: Denies chest pain, palpitations or racing heartbeat Respiratory/Chest Respiratory/Chest: Denies cough, dyspnea or dyspnea on exertion Gastrointestinal Gastrointestinal: Denies abdominal pain, diarrhea, melena, nausea or vomiting Genitourinary Genitourinary ED: Denies dysuria or hematuria Musculoskeletal Musculoskeletal: Denies arthralgias Integumentary Denies abscess Neurologic Neurologic: Denies headache(s) or paresthesias Psychiatric Psychiatric: Denies anxiety or depression Endocrine Endocrinology: Denies cold intolerance Hematologic/Lymphati c Hematologic/Lymphati c: Reports none Allergic/Immunologic Allergic/Immunologic ED: Denies mouth swelling, tongue swelling or urticaria EXAM Physical Exam Narrative Exam Narrative: [id number] female sitting upright in bed. Vital signs are stable afebrile. She looks quite well. Pulse ox 100% on room air no signs of hypoxia. No distress. H EENT exam pupils round reactive light. TMs are scared by wax. Nasal congestion. No pus. No frontal or maxillary sinus tenderness. Posterior pharynx moist and pink. Neck nontender no JVD. No lymphadenopathy. Lungs clear to auscultation bilateral. Heart regular rhythm rate about 85 no murmur. Chest wall ribs nontender. Abdomen is soft, nontender nondistended normal bowel sounds without peritoneal signs. She is moving all 4 extremities. 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 Dorsi plantarflexion intact. Calves are nontender without edema or cords. Back nontender. Neurologically she is awake alert. Answer questions following commands. NIH 0. She has a very benign normal exam. Const Vital Signs: 02/18/25 11:57 02/18/25 13:30 02/18/25 13:30 Temperature 98.0 F Temperature Source Oral Pulse Rate 106 H 72 Respiratory Rate 16 16 Respiratory Effort Normal Non-Labored Respiratory Pattern Normal Blood Pressure 137/93 H 135/83 H Blood Pressure Mean 107 100 Pulse Ox 100 99 Oxygen Delivery Method Room Air Room Air Positive well nourished and well developed; Negative for cachectic, contractures or unkempt General Appearance ED: well developed and NAD; Negative for unkempt, cachectic, contractures, cyanotic, diaphoretic or (more content not included)... Normal [facility] Pulmonary Visit Reporton Pulmonary Visit Report [facility] [address] [place], [place] [address] OFFICE VISIT Date of Service: 07/11/24 MR#: [id number] Acct: [id number] Name: AQUILES MCCLENDON Rep #: [id number] : 1950 Provider: DORA Chisholm Age/Sex: 73/F [place] [facility] [place] Status: Signed Assessment and Plan Assessment and Plan (1) Nocturnal hypoxia: Status: Chronic Plan: She is using and benefiting from supplemental oxygen. (2) Smoking greater than 20 pack years: Status: Chronic Comment: Ordered for March 2024 Quit smoking 2020, smoked 1/2 pack/day x 50 years Plan: Encourage ongoing smoking cessation. She is appropriate for repeat LDCT, previously ordered for April 2025. Follow-up in April to discuss test results. Orders: Orders Low Dose CT Lung Screening 04/10/25 F17.200 - Nicotine dependence, unspecified, uncomplicated, F17.210 - Nicotine dependence, cigarettes, uncomplicated HPI HPI Comments Details: This patient presents to the office today . She is ambulatory and currently on room air. She has not recently been seen in the ED or urgent care for any respiratory illness. She has not required any antibiotics or prednisone for any breathing problems. She is not currently on any inhalers. She is compliant with 2 L of supplemental oxygen with sleep. She wakes up feeling rested and refreshed. She is not having nocturia. She is not requiring naps. She quit smoking in November 2020, she has continued complete smoking cessation. She denies any shortness of breath whatsoever. She continues to be a very active person participating in [employer] 3 times per week. She denies any cough, sputum production or hemoptysis. She denies any wheezing, chest tightness, chest pain or palpitations. She also denies any fever, chills or body aches. Intake Vital Signs 11/09/23 08:03 07/11/24 08:00 Height 5 ft 5 in 5 ft 5 in Weight: 166 lb 4 oz 167 lb BMI 27.6 27.8 BP 137/88 H 123/81 H Blood Pressure Location Rt brachial Lt brachial Position Sitting Sitting Respiration 18 18 Pulse 98 108 H Pulse Source Monitor Monitor Temp 98 F 95.5 F L Temperature Source Temporal Artery Temporal Artery Pulse Oximetry (%) 98 96 Oxygen Delivery Method room air room air Intake Visit Reasons: 5 m fu Customer Consulting Manager Required: No DME Vendor: [employer] Accompanied by: Self Is patient in pain?: No Allergies amoxicillin Allergy (Intermediate, Verified 07/11/24 11:14) Rash Medications ???Medication ???Instructions ???Recorded ???Confirmed ???Type aspirin 81 mg tablet,delayed 81 mg PO DAILY 03/22/23 07/11/24 History release (Adult Aspirin Regimen) cholecalciferol (vitamin D3) 50 50 mcg PO DAILY 03/22/23 07/11/24 History mcg (2,000 unit) capsule folic acid 20 mg capsule 20 mg PO DAILY 03/22/23 07/11/24 History multivitamin with minerals-folic 1 tab PO DAILY 03/22/23 07/11/24 History acid 80 mcg chewable tablet (Centrum Adult 50 Plus) pravastatin 40 mg tablet 40 mg PO DAILY 03/22/23 07/11/24 History Have you fallen in the past year?: No PFSH Medical History Dog bite of right lower leg Surgical History [place] teeth removed Social History Smoking Status: Former smoker quit date: 03/10/21 Tobacco: How many years used: 50 Exam Const Constitutional: Positive conversant, cooperative, in no acute respiratory distress, healthy appearing, well developed, well nourished and good hygiene Head Head: Yes normocephalic, Yes atraumatic and No cyanosis of lips/distal nose Eyes Eye: Positive clear conjunctiva; Negative nystagmus or scleral abnormality Ears Ear: Positive hearing normal and external ears normal Nose Nose: Yes external nose normal Mouth Mouth: Positive oral mucosae normal and good dentition Neck Neck: Positive normal visual inspection, full ROM and trachea midline Chest Wall Chest: Positive symmetric chest movement; Negative increased A/P diameter Resp lung sounds: Positive clear to auscultation, good air exchange, normal expiratory time and normal respiratory effort; Negative diminished lung sounds, wheezes, rhonchi or rales Cardio Cardiac: Positive regular rate, regular rhythm, S1 normal and S2 normal; Negative murmur GI GI: Positive normal to inspection; Negative distended Genitourinary: Positive deferred Musc Musculoskeletal: Positive steady gait and ROM normal; Negative kyphosis or scoliosis Skin Pulmonary Skin Exam: Positive intact; Negative lesion, rash or ulcers Extremities Extremities: Yes capillary refill normal, No clubbing and No cyanosis Neuro Neurologic: Yes (more content not included)... Normal [facility] SCRN MAMM (CAD)W/YUDI BILATo n 05-29-2024 SCRN MAMM (CAD)W/YUDI BILAT [facility] Imaging Services [address] [place] [address] SCRN MAMM (CAD)W/YUDI BILAT MR#: [id number] Acct: [id number] Name: AQUILES MCCLENDON Rep #: [id number] : 1950 F 73 From: Artemio paris MD PCP: Dr. Bob Stewart MD Status: [facility] Study: SCRN MAMM (CAD)W/YUDI BILAT Date of Exam: 05/11 06/03 Exam# [id number] Ordering Dr: Bob Stewart MD [id number] MAMMOGRAPHY - BILATERAL SCREENING REASON FOR EXAM: Female, 73 years old. Routine annual screening examination. PERTINENT HISTORY: Non-contributory. TECHNIQUE: Digital bilateral breast yudi (3D mammographic acquisition) in the CC and MLO projections. 2-D mediolateral oblique (MLO) and craniocaudad (CC) views of both breasts were obtained. CAD: Full Field Digital Mammography with Computer Added Detection was performed. COMPARISON: Comparison is made with prior study May 28, 2023 and May 24, 2022. FINDINGS: Breast Composition: The breasts are heterogeneously dense, which may obscure small masses. There are no dominant masses or suspicious calcifications. A tissue clip marker is seen in the anterior upper lateral aspect of the left breast. Stable benign-appearing bilateral axillary lymph nodes. No other significant abnormalities are identified. There has been no significant change since the prior study. BI/SCRN MAMM (CAD)W/YUDI BILAT IMPRESSION: Stable bilateral screening mammogram. Yearly follow-up mammogram recommended. (A) ASSESSMENT CATEGORY: BIRADS Category 2: Benign. A letter regarding these results will be sent to the patient by the facility within 30 days. Approximately 10% of breast cancers are not detected by mammography. A normal mammogram should not delay biopsy of a clinically suspicious abnormality. [id number] Electronically Signed: Artemio Borja MD at 15:01 EDT Reading Location ID and State: [facility] / [place] , Service support , CC: Dr. Bob Stewart MD Supervisor Billposting: Signed Normal [facility] CBC W/Diff, Automatedon 05-11 Absolute Lymph 1.76 X10 3/uL Normal 0.83-4.51 [facility] Comment on above: Order Comment: Order Date: 05/27/24 Order Info: [id number] - CBCD Performed By: #### L 506.1000, L500.4050, L500.4100, L501.9985, L100.0100 #### [facility] [address] [place], [address] Absolute Neut 3.5 X10 3/uL Normal 2.0-7.7 [facility] Comment on above: Order Comment: Order Date: 05/27/24 Order Info: [id number] - CBCD Performed By: #### L 506.1000, L500.4050, L500.4100, L501.9985, L100.0100 #### [facility] [address] [place], [address] Basophils/100 WBC (Bld) 1.0 % Normal 0-1 [facility] Comment on above: Order Comment: Order Date: 05/27/24 Order Info: [id number] - CBCD Performed By: #### L 506.1000, L500.4050, L500.4100, L501.9985, L100.0100 #### [facility] [address] [place], [address] Eosinophils/100 WBC (Bld) 2.6 % Normal 0-5 [facility] Comment on above: Order Comment: Order Date: 05/27/24 Order Info: [id number] - CBCD Performed By: #### L 506.1000, L500.4050, L500.4100, L501.9985, L100.0100 #### [facility] [address] [place], [address] Erythrocyte distribution width (RBC) [Ratio] 12.5 % Normal 11.6-14.6 [facility] Comment on above: Order Comment: Order Date: 05/27/24 Order Info: [id number] - CBCD Performed By: #### L 506.1000, L500.4050, L500.4100, L501.9985, L100.0100 #### [facility] [address] [place], [address] Hematocrit (Bld) [Volume fraction] 45.4 % Normal 37-47 [facility] Comment on above: Order Comment: Order Date: 05/27/24 Order Info: [id number] - CBCD Performed By: #### L 506.1000, L500.4050, L500.4100, L501.9985, L100.0100 #### [facility] [address] [place], [address] Hemoglobin (Bld) [Mass/Vol] 14.7 g/dL Normal 12.0-15.0 [facility] Comment on above: Order Comment: Order Date: 05/27/24 Order Info: [id number] - CBCD Performed By: #### L 506.1000, L500.4050, L500.4100, L501.9985, L100.0100 #### [facility] [address] [place], [address] IG% 0.200 Normal 0.0-0.9 [facility] Comment on above: Order Comment: Order Date: 05/27/24 Order Info: [id number] - CBCD Result Comment: IG% - Immature Granulocytes (promyelocytes, myelocytes and metamyelocytes) > 1% indicates that a LEFT SHIFT is Present. Performed By: #### L 506.1000, L500.4050, L500.4100, L501.9985, L100.0100 #### [facility] [address] [place], [address] Lymphocytes/100 WBC (Bld) 30.1 % Normal 19-41 [facility] Comment on above: Order Comment: Order Date: 05/27/24 Order Info: 0184-1 - CBCD Performed By: #### L 506.1000, L500.4050, L500.4100, L501.9985, L100.0100 #### [facility] [address] [place], [address] MCH (RBC) [Entitic mass] 30.1 pg Normal 27.0-32.0 [facility] Comment on above: Order Comment: Order Date: 05/27/24 Order Info: 0184-1 - CBCD Performed By: #### L 506.1000, L500.4050, L500.4100, L501.9985, L100.0100 #### [facility] [address] [place], [address] MCHC (RBC) [Mass/Vol] 32.4 g/dL Normal 32-36 [facility] Comment on above: Order Comment: Order Date: 05/27/24 Order Info: 0184-1 - CBCD Performed By: #### L 506.1000, L500.4050, L500.4100, L501.9985, L100.0100 #### [facility] [address] [place], [address] MCV (RBC) [Entitic vol] 93.0 fL Normal 81-99 [facility] Comment on above: Order Comment: Order Date: 05/27/24 Order Info: 0184-1 - CBCD Performed By: #### L 506.1000, L500.4050, L500.4100, L501.9985, L100.0100 #### [facility] [address] [place], [address] Monocytes/100 WBC (Bld) 6.7 % Normal 0-10 [facility] Comment on above: Order Comment: Order Date: 05/27/24 Order Info: 0184-1 - CBCD Performed By: #### L 506.1000, L500.4050, L500.4100, L501.9985, L100.0100 #### [facility] [address] [place], [address] Neutrophils/100 WBC (Bld) 59.4 % Normal 47-70 [facility] Comment on above: Order Comment: Order Date: 05/27/24 Order Info: 0184-1 - CBCD Performed By: #### L 506.1000, L500.4050, L500.4100, L501.9985, L100.0100 #### [facility] [address] [place], [address] Nucleated RBC (Bld) [#/Vol] 0 10*3/uL Normal 0-5 [facility] Comment on above: Order Comment: Order Date: 05/27/24 Order Info: 0184-1 - CBCD Performed By: #### L 506.1000, L500.4050, L500.4100, L501.9985, L100.0100 #### [facility] [address] [place], [address] Platelet mean volume (Bld) [Entitic vol] 10.1 fL Normal 6.2-12.0 [facility] Comment on above: Order Comment: Order Date: 05/27/24 Order Info: 0184-1 - CBCD Performed By: #### L 506.1000, L500.4050, L500.4100, L501.9985, L100.0100 #### [facility] [address] [place], [address] Platelets (Bld) [#/Vol] 298 10*3/uL Normal 150-450 [facility] Comment on above: Order Comment: Order Date: 05/27/24 Order Info: 0184-1 - CBCD Performed By: #### L 506.1000, L500.4050, L500.4100, L501.9985, L100.0100 #### [facility] [address] [place], [address] RBC (Bld) [#/Vol] 4.88 10*6/uL Normal 4.2-5.4 [facility] Comment on above: Order Comment: Order Date: 05/27/24 Order Info: 0184-1 - CBCD Performed By: #### L 506.1000, L500.4050, L500.4100, L501.9985, L100.0100 #### [facility] [address] [place], [address] RDW SD 42.7 fl Normal 35.1-43.9 [facility] Comment on above: Order Comment: Order Date: 05/27/24 Order Info: 0184-1 - CBCD Performed By: #### L 506.1000, L500.4050, L500.4100, L501.9985, L100.0100 #### [facility] [address] [place], [address] WBC (Bld) [#/Vol] 5.8 10*3/uL Normal 4.4-11.0 [facility] Comment on above: Order Comment: Order Date: 05/27/24 Order Info: 0184-1 - CBCD Performed By: #### L 506.1000, L500.4050, L500.4100, L501.9985, L100.0100 #### [facility] [address] [place], [address] Comprehensive Metabolic Prof ilon 05-27-2024 Albumin [Mass/Vol] 3.9 g/dL Normal 3.2-5.0 [facility] Comment on above: Order Comment: Order Date: 08/19/23 Order Info: 0667-1 - BMP Order Date: 05/27/24 Order Info: 0786-1 - CMP Order Info: [id number] - LIPID Performed By: #### L 506.1000, L500.4050, L500.4100, L501.9985, L100.0100 #### [facility] [address] [place], [address] Albumin/Globulin [Mass ratio] 1.1 {ratio} Normal 0.9-2.4 [facility] Comment on above: Order Comment: Order Date: 08/19/23 Order Info: 0667- - BMP Order Date: 05/27/24 Order Info: 07 - CMP Order Info: [id number] - LIPID Performed By: #### L 506.1000, L500.4050, L500.4100, L501.9985, L100.0100 #### [facility] [address] [place], [address] ALK P 100 U/L Normal 45-117 [facility] Comment on above: Order Comment: Order Date: 08/19/23 Order Info: 0667-1 - BMP Order Date: 05/27/24 Order Info: 0786- - CMP Order Info: [id number] - LIPID Performed By: #### L 506.1000, L500.4050, L500.4100, L501.9985, L100.0100 #### [facility] [address] [place], [place], [address] ALT [Catalytic activity/Vol] 23 U/L Normal 13-56 [facility] Comment on above: Order Comment: Order Date: 08/19/23 Order Info: 0667-1 - BMP Order Date: 05/27/24 Order Info: 0786- - CMP Order Info: [id number] - LIPID Performed By: #### L 506.1000, L500.4050, L500.4100, L501.9985, L100.0100 #### [facility] [address] [place], [address] AST [Catalytic activity/Vol] 19 U/L Normal 15-37 [facility] Comment on above: Order Comment: Order Date: 08/19/23 Order Info: 0667- - BMP Order Date: 05/27/24 Order Info: 0786-1 - CMP Order Info: [id number] - LIPID Performed By: #### L 506.1000, L500.4050, L500.4100, L501.9985, L100.0100 #### [facility] [address] [place], [address] Bilirubin [Mass/Vol] 0.40 mg/dL Normal 0.20-1.00 [facility] Comment on above: Order Comment: Order Date: 08/19/23 Order Info: 0667- - BMP Order Date: 05/27/24 Order Info: 0786- - CMP Order Info: [id number] - LIPID Result Comment: For patients on eltrombopag therapy, use of Dimension [place] TBIL is not recommended. Performed By: #### L 506.1000, L500.4050, L500.4100, L501.9985, L100.0100 #### [facility] [address] [place], [address] BUN/CRE 14.1 RATIO Normal 10-20 [facility] Comment on above: Order Comment: Order Date: 08/19/23 Order Info: 0667- - BMP Order Date: 05/27/24 Order Info: 0786-1 - CMP Order Info: [id number] - LIPID Performed By: #### L 506.1000, L500.4050, L500.4100, L501.9985, L100.0100 #### [facility] [address] [place], [address] CA,Total 9.3 mg/dL Normal 8.5-10.1 [facility] Comment on above: Order Comment: Order Date: 08/19/23 Order Info: 666-09 - BMP Order Date: 05/27/24 Order Info: 785-09 - CMP Order Info: [id number] - LIPID Performed By: #### L 506.1000, L500.4050, L500.4100, L501.9985, L100.0100 #### [facility] [address] [place], [address] Chloride [Moles/Vol] 106 mmol/L Normal 98-107 [facility] Comment on above: Order Comment: Order Date: 08/19/23 Order Info: 666-09 - BMP Order Date: 05/27/24 Order Info: 785-09 - CMP Order Info: [id number] - LIPID Performed By: #### L 506.1000, L500.4050, L500.4100, L501.9985, L100.0100 #### [facility] [address] [place], [address] CO2 [Moles/Vol] 29.0 mmol/L Normal 21.0-32.0 [facility] Comment on above: Order Comment: Order Date: 08/19/23 Order Info: 666-09 - BMP Order Date: 05/27/24 Order Info: 785-09 - CMP Order Info: [id number] - LIPID Performed By: #### L 506.1000, L500.4050, L500.4100, L501.9985, L100.0100 #### [facility] [address] [place], [address] Creatinine [Mass/Vol] 0.92 mg/dL Normal 0.55-1.02 [facility] Comment on above: Order Comment: Order Date: 08/19/23 Order Info: 666-09 - BMP Order Date: 05/27/24 Order Info: 785-09 - CMP Order Info: [id number] - LIPID Result Comment: The validity of the calculated GFR GFRAA in patients over 70 years has not been determined. Clinical correlation is essential. Performed By: #### L 506.1000, L500.4050, L500.4100, L501.9985, L100.0100 #### [facility] [address] [place], [address] EST GFR - AA 77 mL/min Normal >60 [facility] Comment on above: Order Comment: Order Date: 08/19/23 Order Info: 0667- - BMP Order Date: 05/27/24 Order Info: 0786- - CMP Order Info: [id number] - LIPID Result Comment: Afri can Swazi GFR Calc Performed By: #### L 506.1000, L500.4050, L500.4100, L501.9985, L100.0100 #### [facility] [address] [place], [address] GAP 4 Low 5-15 [facility] Comment on above: Order Comment: Order Date: 08/19/23 Order Info: 06- - BMP Order Date: 05/27/24 Order Info: 0786- - CMP Order Info: [id number] - LIPID Performed By: #### L 506.1000, L500.4050, L500.4100, L501.9985, L100.0100 #### [facility] [address] [place], [address] GFR/1.73 sq M.predicted among non-blacks MDRD (S/P/Bld) [Vol rate/Area] 64 mL/min/{1.73_m2} Normal >60 [facility] Comment on above: Order Comment: Order Date: 08/19/23 Order Info: 0667-1 - BMP Order Date: 05/27/24 Order Info: 0786- - CMP Order Info: [id number] - LIPID Result Comment: Non- GFR Calc Performed By: #### L 506.1000, L500.4050, L500.4100, L501.9985, L100.0100 #### [facility] [address] [place], [address] Globulin (S) [Mass/Vol] 3.4 g/dL Normal 2.2-4.2 [facility] Comment on above: Order Comment: Order Date: 08/19/23 Order Info: 666- - BMP Order Date: 05/27/24 Order Info: 86- - CMP Order Info: [id number] - LIPID Performed By: #### L 506.1000, L500.4050, L500.4100, L501.9985, L100.0100 #### [facility] [address] [place], [address] Glucose [Mass/Vol] 99 mg/dL Normal 74-106 [facility] Comment on above: Order Comment: Order Date: 08/19/23 Order Info: 666-09 - BMP Order Date: 05/27/24 Order Info: 785-09 - CMP Order Info: [id number] - LIPID Performed By: #### L 506.1000, L500.4050, L500.4100, L501.9985, L100.0100 #### [facility] [address] [place], [address] Potassium [Moles/Vol] 4.0 mmol/L Normal 3.5-5.1 [facility] Comment on above: Order Comment: Order Date: 08/19/23 Order Info: 666- - BMP Order Date: 05/27/24 Order Info: 0786- - CMP Order Info: [id number] - LIPID Performed By: #### L 506.1000, L500.4050, L500.4100, L501.9985, L100.0100 #### [facility] [address] [place], [address] Sodium [Moles/Vol] 139 mmol/L Normal 136-145 [facility] Comment on above: Order Comment: Order Date: 08/19/23 Order Info: 67- - BMP Order Date: 05/27/24 Order Info: 07-1 - CMP Order Info: [id number] - LIPID Performed By: #### L 506.1000, L500.4050, L500.4100, L501.9985, L100.0100 #### [facility] [address] [place], [address] T PROT 7.3 g/dL Normal 6.4-8.2 [facility] Comment on above: Order Comment: Order Date: 08/19/23 Order Info: 0667-1 - BMP Order Date: 05/27/24 Order Info: 0786-1 - CMP Order Info: [id number] - LIPID Performed By: #### L 506.1000, L500.4050, L500.4100, L501.9985, L100.0100 #### [facility] [address] [place], [address] Urea nitrogen [Mass/Vol] 13 mg/dL Normal 7-18 [facility] Comment on above: Order Comment: Order Date: 08/19/23 Order Info: 0667-1 - BMP Order Date: 05/27/24 Order Info: 0786-1 - CMP Order Info: [id number] - LIPID Performed By: #### L 506.1000, L500.4050, L500.4100, L501.9985, L100.0100 #### [facility] [address] [place], [address] Hemoglobin A1con 05-27-2024 HbA1c (Bld) [Mass fraction] 5.6 % Normal 3.8-5.6 [facility] Comment on above: Order Comment: Order Date: 05/27/24 Order Info: [id number] - A1C Result Comment: Norm al < 5.7 % Prediabetic 5.7 - 6.4 % Diabetic >or= 6.5 % Please note range changes. Performed By: #### L 506.1000, L500.4050, L500.4100, L501.9985, L100.0100 #### [facility] [address] [place], [address] Lipid Profileon 05-27-2024 Cholesterol [Mass/Vol] 186 mg/dL Normal 200 [facility] Comment on above: Order Comment: Order Date: 08/19/23 Order Info: 666- - BMP Order Date: 05/27/24 Order Info: 0786-1 - CMP Order Info: [id number] - LIPID Result Comment: <200 mg/dL Desirable 200-240 mg/dL Borderline >240 mg/dL High Risk Performed By: #### L 506.1000, L500.4050, L500.4100, L501.9985, L100.0100 #### [facility] [address] [place], [place], [address] Cholesterol in HDL [Mass/Vol] 63 mg/dL Normal [facility] Comment on above: Order Comment: Order Date: 08/19/23 Order Info: 666- - BMP Order Date: 05/27/24 Order Info: 07 - CMP Order Info: [id number] - LIPID Result Comment: The drugs N-Acetylcysteine and Metamizole may falsely depress this assay. Reference Range HDL <40 mg/dL Low HDL Cholesterol HDL >or= 60 mg/dL High HDL Cholesterol Performed By: #### L 506.1000, L500.4050, L500.4100, L501.9985, L100.0100 #### [facility] [address] [place], [place], [address] Cholesterol in LDL [Mass/Vol] 108 mg/dL Normal 0-130 [facility] Comment on above: Order Comment: Order Date: 08/19/23 Order Info: 06- - BMP Order Date: 05/27/24 Order Info: 0786- - CMP Order Info: [id number] - LIPID Performed By: #### L 506.1000, L500.4050, L500.4100, L501.9985, L100.0100 #### [facility] [address] [place], [place], [address] Cholesterol in VLDL [Mass/Vol] 15 mg/dL Normal 5-40 [facility] Comment on above: Order Comment: Order Date: 08/19/23 Order Info: 0667-1 - BMP Order Date: 05/27/24 Order Info: 0786-1 - CMP Order Info: [id number] - LIPID Performed By: #### L 506.1000, L500.4050, L500.4100, L501.9985, L100.0100 #### [facility] [address] [place], [place], [id number] Triglyceride [Mass/Vol] 75 mg/dL Normal [facility] Comment on above: Order Comment: Order Date: 08/19/23 Order Info: [id number] - BMP Order Date: 05/27/24 Order Info: 0786-1 - CMP Order Info: [id number] - LIPID Result Comment: The drugs N-Acetylcysteine and Metamizole may falsely depress this assay. Serum Triglycerides Reference Interval Normal <150 mg/dL Borderline high 150 - 199 mg/dL High 200 - 499 mg/dL Very High > or = 500 mg/dL Performed By: #### L 506.1000, L500.4050, L500.4100, L501.9985, L100.0100 #### [facility] [address] [place], [place], [address] Vitamin D,25 Hydroxyon 05-27 Vitamin D 25-OH 49.2 ng/mL Normal [facility] Comment on above: Order Comment: Order Date: 05/27/24 Order Info: [id number] - VITD25 Result Comment: Krystle min D 25(OH) Status Range Deficiency <20 ng/mL (50nmol/L) Insufficiency 20 - 30 ng/mL (50 - 75 nmol/L) Sufficiency 30 - 100 ng/mL (75 - 250 nmol/L) Toxicity >100 ng/mL (>250 nmol/L) Performed By: #### L 506.1000, L500.4050, L500.4100, L501.9985, L100.0100 #### [facility] [address] [place], [place], [address] Basophil percentageOrdered B y: Nyasia Stathopoulos on 11-07-2023 Bilirubin [Mass/Vol] 0.50 mg/dL 0.20-1.00 [facility] Comment on above: For patients on eltr ombopag therapy, use of Dimension [place] TBIL is not recommended. Chloride [Moles/Vol] 106 mmol/L 98-107 [facility] Cholesterol [Mass/Vol] 201 mg/dL <200 [facility] Comment on above: <200 mg/dL Desirable 200-240 mg/dL Borderline >240 mg/dL High Risk Glucose [Mass/Vol] 131 mg/dL 74-106 [facility] Comment on above: Fasting Glucose resu lt greater than or equal to 126 mg/dL suggests DIABETES MELLITUS per A.D.A. criteria. Hemoglobin (Bld) [Mass/Vol] 15.4 g/dL 12.0-15.0 [facility] Potassium [Moles/Vol] 3.7 mmol/L 3.5-5.1 [facility] Protein [Mass/Vol] 7.7 g/dL 6.4-8.2 [facility] Sodium [Moles/Vol] 140 mmol/L 136-145 [facility] Triglyceride [Mass/Vol] 139 mg/dL <199 [facility] Comment on above: The drugs N-Acetylcy steine and Metamizole may falsely depress this assay.Serum Triglycerides Reference Interval Normal <150 mg/dL Borderline high 150 - 199 mg/dL High 200 - 499 mg/dL Very High > or = 500 mg/dL WBC (Bld) [#/Vol] 6.7 10*3/uL 4.4-11.0 [facility] Determination of erythrocyte mean corpuscular volume (MCV)Ordered By: Nyasia Apodaca on 11-07-2023 MCV (RBC) [Entitic vol] 94.1 fL 81-99 [facility] Erythrocyte distribution wid th ratioOrdered By: Nyasia Statalirezaouldonnie on 11-07-2023 Erythrocyte distribution width (RBC) [Ratio] 12.6 % 11.6-14.6 [facility] Erythrocyte distribution wid th standard deviationOrdered By: Nyasia Statclifton on 11-07-2023 Erythrocyte distribution width (RBC) [Entitic vol] 43.5 fL 35.1-43.9 [facility] Hematocrit Auto (Bld) [Volum e fraction]Ordered By: Nyasia Apodaca on 11-07-2023 Hematocrit (Bld) [Volume fraction] 47.5 % 37-47 [facility] - Chemistry and C hemistry - challengeOrdered By: Nyasia Apodaca on 11-07-2023 Albumin/Globulin [Mass ratio] 1.1 {ratio} 0.9-2.4 [facility] ALP [Catalytic activity/Vol] 87 U/L 45-117 [facility] ALT [Catalytic activity/Vol] 21 U/L 13-56 [facility] Cholesterol in HDL [Mass/Vol] 56 mg/dL >40 [facility] Comment on above: The drugs N-Acetylcy steine and Metamizole may falsely depress this assay. Reference Range HDL <40 mg/dL Low HDL Cholesterol HDL >or= 60 mg/dL High HDL Cholesterol Cholesterol in LDL [Mass/Vol] 117 mg/dL 0-130 [facility] CO2 [Moles/Vol] 28.0 mmol/L 21.0-32.0 [facility] Globulin (S) [Mass/Vol] 3.6 g/dL 2.2-4.2 [facility] Urea nitrogen/Creatinine [Mass ratio] 20.8 mg/mg 10-20 [facility] - Hematology and Cell countsOrdered By: Nyasiaelizabeth Apodaca on 11-07-2023 MCH (RBC) [Entitic mass] 30.5 pg 27.0-32.0 [facility] MCHC (RBC) [Mass/Vol] 32.4 g/dL 32-36 [facility] Platelet mean volume (Bld) [Entitic vol] 10.3 fL 6.2-12.0 [facility] Platelets (Bld) [#/Vol] 306 10*3/uL 150-450 [facility] No Panel InformationOrdered By: Nyasia Apodaca on 11-07-2023 Estimated GFR (MDRD) Amer 69 mL/min >60 [facility] Comment on above: GFR Calc Estimated GFR (MDRD) Non-Af Amer 57 mL/min >60 [facility] Comment on above: Non- GFR Calc VLDL Cholesterol 28 mg/dL 5-40 [facility] RBC Auto (Bld) [#/Vol]Ordere d By: Nyasia Apodaca on 11-07-2023 RBC (Bld) [#/Vol] 5.05 10*6/uL 4.2-5.4 [facility] Serum or plasma calcium poonam urement (mass/volume)Ordered By: Nyasia Apodaca on 11-07-2023 Calcium [Mass/Vol] 9.4 mg/dL 8.5-10.1 [facility] Serum or plasma creatinine m easurement (mass/volume)Ordered By: Nyasia Apodaca on 11-07-2023 Creatinine [Mass/Vol] 1.01 mg/dL 0.55-1.02 [facility] Comment on above: The validity of the calculated GFR & GFRAA in patients over 70 years has not been determined. Clinical correlation is essential. Serum or plasma urea nitroge n measurement (mass/volume)Ordered By: Nyasia Apodaca on 11-07-2023 Urea nitrogen [Mass/Vol] 21 mg/dL 7-18 [facility] Thin prep Papanicolaou smear with manual screeningOrdered By: Nyasia Apodaca on 11-07-2023 Thin prep Papanicolaou smear with manual screening 4.1 g/dL 3.2-5.0 [facility] Thin prep Papanicolaou smear with manual screening 19 U/L 15-37 [facility] Thin prep Papanicolaou smear with manual screening 6 5-15 [facility] Whole blood hemoglobin A1c/t otal hemoglobin ratio (mass fraction)Ordered By: Nyasia Apodaca on 11-07-2023 HbA1c (Bld) [Mass fraction] 5.6 % 3.8-5.6 [facility] Comment on above: Normal < 5.7 % Predi abetic 5.7 - 6.4 % Diabetic >or= 6.5 % Please note range changes. Basophil percentageOrdered B y: Bob Stewart on 08-15-2023 Bilirubin [Mass/Vol] 0.40 mg/dL 0.20-1.00 [facility] Comment on above: For patients on eltr ombopag therapy, use of Dimension [place] TBIL is not recommended. Chloride [Moles/Vol] 106 mmol/L 98-107 [facility] Cholesterol [Mass/Vol] 181 mg/dL <200 [facility] Comment on above: <200 mg/dL Desirable 200-240 mg/dL Borderline >240 mg/dL High Risk Glucose [Mass/Vol] 131 mg/dL 74-106 [facility] Comment on above: Fasting Glucose resu lt greater than or equal to 126 mg/dL suggests DIABETES MELLITUS per A.D.A. criteria. Potassium [Moles/Vol] 3.7 mmol/L 3.5-5.1 [facility] Protein [Mass/Vol] 7.4 g/dL 6.4-8.2 [facility] Sodium [Moles/Vol] 139 mmol/L 136-145 [facility] Triglyceride [Mass/Vol] 165 mg/dL <199 [facility] Comment on above: The drugs N-Acetylcy steine and Metamizole may falsely depress this assay.Serum Triglycerides Reference Interval Normal <150 mg/dL Borderline high 150 - 199 mg/dL High 200 - 499 mg/dL Very High > or = 500 mg/dL WBC (Bld) [#/Vol] 6.9 10*3/uL 4.4-11.0 [facility] Blood erythrocytes count (nu mber/volume)Ordered By: Bob Stewart on 08-15-2023 RBC (Bld) [#/Vol] 4.82 10*6/uL 4.2-5.4 [facility] Blood hemoglobin measurement (mass/volume)Ordered By: Bob Stewart on 08-15-2023 Hemoglobin (Bld) [Mass/Vol] 14.6 g/dL 12.0-15.0 [facility] Blood platelet mean volumeOr dered By: Bob Stewart on 08-15-2023 Platelet mean volume (Bld) [Entitic vol] 10.3 fL 6.2-12.0 [facility] Determination of erythrocyte mean corpuscular volume (MCV)Ordered By: Bob Stewart on 08-15-2023 MCV (RBC) [Entitic vol] 96.3 fL 81-99 [facility] Hematocrit Auto (Bld) [Volum e fraction]Ordered By: Bob Stewart on 08-15-2023 Hematocrit (Bld) [Volume fraction] 46.4 % 37-47 [facility] - Chemistry and C hemistry - challengeOrdered By: Bob Stewart on 08-15-2023 ALP [Catalytic activity/Vol] 83 U/L 45-117 [facility] ALT [Catalytic activity/Vol] 21 U/L 13-56 [facility] CO2 [Moles/Vol] 29.0 mmol/L 21.0-32.0 [facility] Globulin (S) [Mass/Vol] 3.4 g/dL 2.2-4.2 [facility] Urea nitrogen/Creatinine [Mass ratio] 20.4 mg/mg 10-20 [facility] - Hematology and Cell countsOrdered By: Bob Stewart on 08-15-2023 Erythrocyte distribution width (RBC) [Entitic vol] 44.4 fL 35.1-43.9 [facility] Erythrocyte distribution width (RBC) [Ratio] 12.5 % 11.6-14.6 [facility] MCH (RBC) [Entitic mass] 30.3 pg 27.0-32.0 [facility] MCHC Auto (RBC) [Mass/Vol]Or dered By: Bob Stewart on 08-15-2023 MCHC (RBC) [Mass/Vol] 31.5 g/dL 32-36 [facility] No Panel InformationOrdered By: Bob Stewart on 08-15-2023 Estimated GFR (MDRD) Amer 72 mL/min >60 [facility] Comment on above: GFR Calc Estimated GFR (MDRD) Non-Af Amer 59 mL/min >60 [facility] Comment on above: Non- GFR Calc Vitamin D 25-Hydroxy 54.2 ng/mL [facility] Comment on above: Vitamin D 25(OH) Sta tus Range Deficiency <20 ng/mL (50nmol/L) Insufficiency 20 - 30 ng/mL (50 - 75 nmol/L) Sufficiency 30 - 100 ng/mL (75 - 250 nmol/L) Toxicity >100 ng/mL (>250 nmol/L) Platelets bldOrdered By: Farooq Stewart on 08-15-2023 Platelets (Bld) [#/Vol] 297 10*3/uL 150-450 [facility] Serum or plasma albumin poonam urement (mass/volume)Ordered By: Bob Stewart on 08-15-2023 Albumin [Mass/Vol] 4.0 g/dL 3.2-5.0 [facility] Serum or plasma albumin/glob ulin mass ratioOrdered By: Bob Stewart on 08-15-2023 Albumin/Globulin [Mass ratio] 1.2 {ratio} 0.9-2.4 [facility] Serum or plasma calcium poonam urement (mass/volume)Ordered By: Bob Stewart on 08-15-2023 Calcium [Mass/Vol] 9.2 mg/dL 8.5-10.1 [facility] Serum or plasma cholesterol in HDL measurement (mass/volume)Ordered By: Bob Stewart on 08-15-2023 Cholesterol in HDL [Mass/Vol] 53 mg/dL >40 [facility] [facility] Comment on above: The drugs N-Acetylcy steine and Metamizole may falsely depress this assay. Reference Range HDL <40 mg/dL Low HDL Cholesterol HDL >or= 60 mg/dL High HDL Cholesterol Serum or plasma cholesterol in VLDL measurement (mass/volume)Ordered By: Bob Stewart on 08-15-2023 Cholesterol in VLDL [Mass/Vol] 33 mg/dL 5-40 [facility] Serum or plasma creatinine m easurement (mass/volume)Ordered By: Bob Stewart on 08-15-2023 Creatinine [Mass/Vol] 0.98 mg/dL 0.55-1.02 [facility] Comment on above: The validity of the calculated GFR & GFRAA in patients over 70 years has not been determined. Clinical correlation is essential. Serum or plasma low density lipoprotein (LDL) cholesterol measurement (mass/volume)Ordered By: Bob Stewart on 08-15-2023 Cholesterol in LDL [Mass/Vol] 95 mg/dL 0-130 [facility] Serum or plasma urea nitroge n measurement (mass/volume)Ordered By: Bob Stewart on 08-15-2023 Urea nitrogen [Mass/Vol] 20 mg/dL 7-18 [facility] Thin prep Papanicolaou smear with manual screeningOrdered By: Bob Stewart on 08-15-2023 Thin prep Papanicolaou smear with manual screening 19 U/L 15-37 [facility] Thin prep Papanicolaou smear with manual screening 4 5-15 [facility] Absolute lymphocyte countOrd ered By: Dr. Stewart on 02-08-2023 Lymphocytes Auto (Unsp spec) [#/Vol] 1.48 10*3/uL 0.83-4.51 [facility] Basophil percentageOrdered B y: Dr. Stewart on 02-08-2023 Basophils/100 WBC (Bld) 0.8 % 0-1 [facility] Bilirubin [Mass/Vol] 0.60 mg/dL 0.20-1.00 [facility] Comment on above: For patients on eltr ombopag therapy, use of Dimension [place] TBIL is not recommended. Chloride [Moles/Vol] 107 mmol/L 98-107 [facility] Cholesterol [Mass/Vol] 182 mg/dL <200 [facility] Comment on above: <200 mg/dL Desirable 200-240 mg/dL Borderline >240 mg/dL High Risk Eosinophils/100 WBC (Bld) 4.9 % 0-5 [facility] Glucose [Mass/Vol] 90 mg/dL 74-106 [facility] Neutrophils (Bld) [#/Vol] 3.7 10*3/uL 2.0-7.7 [facility] Neutrophils/100 WBC (Bld) 62.5 % 47-70 [facility] Potassium [Moles/Vol] 3.9 mmol/L 3.5-5.1 [facility] Protein [Mass/Vol] 7.5 g/dL 6.4-8.2 [facility] Sodium [Moles/Vol] 140 mmol/L 136-145 [facility] Triglyceride [Mass/Vol] 104 mg/dL <199 [facility] Comment on above: The drugs N-Acetylcy steine and Metamizole may falsely depress this assay.Serum Triglycerides Reference Interval Normal <150 mg/dL Borderline high 150 - 199 mg/dL High 200 - 499 mg/dL Very High > or = 500 mg/dL WBC (Bld) [#/Vol] 5.9 10*3/uL 4.4-11.0 [facility] Blood erythrocytes count (nu mber/volume)Ordered By: Dr. Stewart on 02-08-2023 RBC (Bld) [#/Vol] 5.01 10*6/uL 4.2-5.4 [facility] Blood hemoglobin measurement (mass/volume)Ordered By: Dr. Stewart on 02-08-2023 Hemoglobin (Bld) [Mass/Vol] 15.3 g/dL 12.0-15.0 [facility] Blood lymphocytes/100 leukoc ytesOrdered By: Dr. Stewart on 02-08-2023 Lymphocytes/100 WBC (Bld) 25.0 % 19-41 [facility] Blood monocytes/100 leukocyt esOrdered By: Dr. Stewart on 02-08-2023 Monocytes/100 WBC (Bld) 6.6 % 0-10 [facility] Blood platelet mean volumeOr dered By: Dr. Stewart on 02-08-2023 Platelet mean volume (Bld) [Entitic vol] 9.7 fL 6.2-12.0 [facility] Determination of erythrocyte mean corpuscular volume (MCV)Ordered By: Dr. Stewart on 02-08-2023 MCV (RBC) [Entitic vol] 94.4 fL 81-99 [facility] Hematocrit Auto (Bld) [Volum e fraction]Ordered By: Dr. Stewart on 02-08-2023 Hematocrit (Bld) [Volume fraction] 47.3 % 37-47 [facility] Laboratory - Chemistry and C hemistry - challengeOrdered By: Dr. Stewart on 02-08-2023 ALP [Catalytic activity/Vol] 107 U/L 45-117 [facility] ALT [Catalytic activity/Vol] 26 U/L 13-56 [facility] CO2 [Moles/Vol] 26.0 mmol/L 21.0-32.0 [facility] Globulin (S) [Mass/Vol] 3.5 g/dL 2.2-4.2 [facility] Urea nitrogen/Creatinine [Mass ratio] 21.5 mg/mg 10-20 [facility] Laboratory - Hematology and Cell countsOrdered By: Dr. Stewart on 02-08-2023 Erythrocyte distribution width (RBC) [Entitic vol] 43.1 fL 35.1-43.9 [facility] Erythrocyte distribution width (RBC) [Ratio] 12.5 % 11.6-14.6 [facility] Immature granulocytes/100 WBC (Bld) 0.200 % 0.0-0.9 [facility] Comment on above: IG% - Immature Granu locytes (promyelocytes, myelocytes and metamyelocytes) > 1% indicates that a LEFT SHIFT is Present. MCH (RBC) [Entitic mass] 30.5 pg 27.0-32.0 [facility] Nucleated RBC/100 WBC (Bld) [Ratio] 0 % 0-5 [facility] MCHC Auto (RBC) [Mass/Vol]Or dered By: Dr. Stewart on 02-08-2023 MCHC (RBC) [Mass/Vol] 32.3 g/dL 32-36 [facility] No Panel InformationOrdered By: Dr. Stewart on 02-08-2023 Estimated GFR (MDRD) Amer 81 mL/min >60 [facility] Comment on above: GFR Calc Estimated GFR (MDRD) Non-Af Amer 67 mL/min >60 [facility] Comment on above: Non- GFR Calc Vitamin D 25-Hydroxy 58.2 ng/mL [facility] Comment on above: Vitamin D 25(OH) Sta tus Range Deficiency <20 ng/mL (50nmol/L) Insufficiency 20 - 30 ng/mL (50 - 75 nmol/L) Sufficiency 30 - 100 ng/mL (75 - 250 nmol/L) Toxicity >100 ng/mL (>250 nmol/L) Platelets bldOrdered By: Dr. Stewart on 02-08-2023 Platelets (Bld) [#/Vol] 296 10*3/uL 150-450 [facility] Serum or plasma albumin poonam urement (mass/volume)Ordered By: Dr. Stewart on 02-08-2023 Albumin [Mass/Vol] 4.0 g/dL 3.2-5.0 [facility] Serum or plasma albumin/glob ulin mass ratioOrdered By: Dr. Stewart on 02-08-2023 Albumin/Globulin [Mass ratio] 1.1 {ratio} 0.9-2.4 [facility] Serum or plasma calcium poonam urement (mass/volume)Ordered By: Dr. Stewart on 02-08-2023 Calcium [Mass/Vol] 9.7 mg/dL 8.5-10.1 [facility] Serum or plasma cholesterol in HDL measurement (mass/volume)Ordered By: Dr. Stewart on 02-08-2023 Cholesterol in HDL [Mass/Vol] 59 mg/dL >40 [facility] Comment on above: The drugs N-Acetylcy steine and Metamizole may falsely depress this assay. Reference Range HDL <40 mg/dL Low HDL Cholesterol HDL >or= 60 mg/dL High HDL Cholesterol Serum or plasma cholesterol in VLDL measurement (mass/volume)Ordered By: Dr. Stewart on 02-08-2023 Cholesterol in VLDL [Mass/Vol] 21 mg/dL 5-40 [facility] Serum or plasma creatinine m easurement (mass/volume)Ordered By: Dr. Stewart on 02-08-2023 Creatinine [Mass/Vol] 0.88 mg/dL 0.55-1.02 [facility] Comment on above: The validity of the calculated GFR & GFRAA in patients over 70 years has not been determined. Clinical correlation is essential. Serum or plasma low density lipoprotein (LDL) cholesterol measurement (mass/volume)Ordered By: Dr. Stewart on 02-08-2023 Cholesterol in LDL [Mass/Vol] 102 mg/dL 0-130 [facility] Serum or plasma urea nitroge n measurement (mass/volume)Ordered By: Dr. Stewart on 02-08-2023 Urea nitrogen [Mass/Vol] 19 mg/dL 7-18 [facility] Thin prep Papanicolaou smear with manual screeningOrdered By: Dr. Stewart on 02-08-2023 Thin prep Papanicolaou smear with manual screening 20 U/L 15-37 [facility] Thin prep Papanicolaou smear with manual screening 7 5-15 [facility] Basophil percentageon 2021 Bilirubin [Mass/Vol] 0.40 mg/dL 0.20-1.00 [facility] Work Phone: Comment on above: For patients on eltr ombopag therapy, use of Dimension [place] TBIL is not recommended. Chloride [Moles/Vol] 110 mmol/L 98-[address] [facility] Work Phone: Cholesterol [Mass/Vol] 193 mg/dL <200 [facility] Work Phone: Comment on above: <200 mg/dL Desirable 200-240 mg/dL Borderline >240 mg/dL High Risk Glucose [Mass/Vol] 92 mg/dL 74-106 [email or web address] Work Phone: Potassium [Moles/Vol] 3.8 mmol/L 3.5-5.1 [facility] Work Phone: Protein [Mass/Vol] 7.2 g/dL 6.4-8.2 [facility] Work Phone: Sodium [Moles/Vol] 142 mmol/L 136-145 [facility] Work Phone: Triglyceride [Mass/Vol] 153 mg/dL <199 [facility] Work Phone: Comment on above: The drugs N-Acetylcy steine and Metamizole may falsely depress this assay.Serum Triglycerides Reference Interval Normal <150 mg/dL Borderline high 150 - 199 mg/dL High 200 - 499 mg/dL Very High > or = 500 mg/dL Laboratory - Chemistry and C hemistry - challengeon 05-05-2022 ALP [Catalytic activity/Vol] 97 U/L 45-117 [facility] Work Phone: ALT [Catalytic activity/Vol] 29 U/L 13-56 [facility] Work Phone: CO2 [Moles/Vol] 30.0 mmol/L 21.0-32.0 [facility] Work Phone: Globulin (S) [Mass/Vol] 3.4 g/dL 2.2-4.2 [facility] Work Phone: Urea nitrogen/Creatinine [Mass ratio] 22.1 mg/mg 10-20 [facility] Work Phone: No Panel Informationon 05-05 Estimated GFR (MDRD) Amer 89 mL/min >60 [facility] Work Phone: Comment on above: GFR Calc Estimated GFR (MDRD) Non-Af Amer 74 mL/min >60 [facility] Work Phone: Comment on above: Non- GFR Calc Vitamin D 25-Hydroxy 57.3 ng/mL [facility] Work Phone: Comment on above: Vitamin D 25(OH) Sta tus Range Deficiency <20 ng/mL (50nmol/L) Insufficiency 20 - 30 ng/mL (50 - 75 nmol/L) Sufficiency 30 - 100 ng/mL (75 - 250 nmol/L) Toxicity >100 ng/mL (>250 nmol/L) Serum or plasma albumin poonam urement (mass/volume)on 05-05-2022 Albumin [Mass/Vol] 3.8 g/dL 3.2-5.0 [facility] Work Phone: Serum or plasma albumin/glob ulin mass ratioon 05-05-2022 Albumin/Globulin [Mass ratio] 1.1 {ratio} 0.9-2.4 [facility] Work Phone: Serum or plasma calcium poonam urement (mass/volume)on 05-05-2022 Calcium [Mass/Vol] 8.9 mg/dL 8.5-10.1 [facility] Work Phone: Serum or plasma cholesterol in HDL measurement (mass/volume)on 05-05-2022 Cholesterol in HDL [Mass/Vol] 54 mg/dL >40 [facility] Work Phone: Comment on above: The drugs N-Acetylcy steine and Metamizole may falsely depress this assay. Reference Range HDL <40 mg/dL Low HDL Cholesterol HDL >or= 60 mg/dL High HDL Cholesterol Serum or plasma cholesterol in VLDL measurement (mass/volume)on 05-05-2022 Cholesterol in VLDL [Mass/Vol] 31 mg/dL 5-40 [facility] Work Phone: Serum or plasma creatinine m easurement (mass/volume)on 05-05-2022 Creatinine [Mass/Vol] 0.82 mg/dL 0.55-1.02 [facility] Work Phone: Comment on above: The validity of the calculated GFR & GFRAA in patients over 70 years has not been determined. Clinical correlation is essential. Serum or plasma low density lipoprotein (LDL) cholesterol measurement (mass/volume)on 05-05-2022 Cholesterol in LDL [Mass/Vol] 108 mg/dL 0-130 [facility] Work Phone: Serum or plasma urea nitroge n measurement (mass/volume)on 05-05-2022 Urea nitrogen [Mass/Vol] 18 mg/dL 7-18 [facility] Work Phone: Thin prep Papanicolaou smear with manual screeningon 05-05-2022 Thin prep Papanicolaou smear with manual screening 21 U/L 15-37 [facility] Work Phone: Thin prep Papanicolaou smear with manual screening 2 5-15 [facility] Work Phone: Absolute lymphocyte counton 02-16-2022 Lymphocytes Auto (Unsp spec) [#/Vol] 1.67 10*3/uL 0.83-4.51 [facility] Work Phone: Basophil percentageon 2021 Basophil percentage 0 SEEN /hpf 0-5 [facility] Work Phone: Basophils/100 WBC (Bld) 0.7 % 0-1 [facility] Work Phone: Bilirubin [Mass/Vol] 0.50 mg/dL 0.20-1.00 [facility] Work Phone: Comment on above: For patients on eltr ombopag therapy, use of Dimension [place] TBIL is not recommended. Chloride [Moles/Vol] 105 mmol/L 98-107 [facility] Work Phone: Cholesterol [Mass/Vol] 199 mg/dL <200 [facility] Work Phone: Comment on above: <200 mg/dL Desirable 200-240 mg/dL Borderline >240 mg/dL High Risk Eosinophils/100 WBC (Bld) 2.4 % 0-5 [facility] Work Phone: Glucose [Mass/Vol] 89 mg/dL 74-106 [facility] Work Phone: Neutrophils (Bld) [#/Vol] 3.1 10*3/uL 2.0-7.7 [facility] Work Phone: Neutrophils/100 WBC (Bld) 57.6 % 47-70 [facility] Work Phone: Potassium [Moles/Vol] 3.8 mmol/L 3.5-5.1 [facility] Work Phone: Protein [Mass/Vol] 7.2 g/dL 6.4-8.2 [facility] Work Phone: Sodium [Moles/Vol] 138 mmol/L 136-145 [facility] Work Phone: Triglyceride [Mass/Vol] 92 mg/dL <199 [facility] Work Phone: Comment on above: The drugs N-Acetylcy steine and Metamizole may falsely depress this assay.Serum Triglycerides Reference Interval Normal <150 mg/dL Borderline high 150 - 199 mg/dL High 200 - 499 mg/dL Very High > or = 500 mg/dL WBC (Bld) [#/Vol] 5.4 10*3/uL 4.4-11.0 [facility] Work Phone: Bilirubin Test strip Ql (U)o n 02-16-2022 Bilirubin Ql (U) Negative Negative [facility] Work Phone: Blood erythrocytes count (nu mber/volume)on 02-16-2022 RBC (Bld) [#/Vol] 4.93 10*6/uL 4.2-5.4 [facility] Work Phone: Blood hemoglobin measurement (mass/volume)on 02-16-2022 Hemoglobin (Bld) [Mass/Vol] 15.0 g/dL 12.0-15.0 [facility] Work Phone: Blood lymphocytes/100 leukoc yteson 02-16-2022 Lymphocytes/100 WBC (Bld) 31.1 % 19-41 [facility] Work Phone: Blood monocytes/100 leukocyt eson 02-16-2022 Monocytes/100 WBC (Bld) 7.8 % 0-10 [facility] Work Phone: Blood platelet mean volumeon 02-16-2022 Platelet mean volume (Bld) [Entitic vol] 9.9 fL 6.2-12.0 [facility] Work Phone: Determination of erythrocyte mean corpuscular volume (MCV)on 02-16-2022 MCV (RBC) [Entitic vol] 93.3 fL 81-99 [facility] Work Phone: Hematocrit Auto (Bld) [Volum e fraction]on 02-16-2022 Hematocrit (Bld) [Volume fraction] 46.0 % 37-47 [facility] Work Phone: Ketones Test strip Ql (U)on 02-16-2022 Ketones Ql (U) Negative Negative [facility] Work Phone: Laboratory - Chemistry and C hemistry - challengeon 02-16-2022 ALP [Catalytic activity/Vol] 90 U/L 45-117 [facility] Work Phone: ALT [Catalytic activity/Vol] 28 U/L 13-56 [facility] Work Phone: CO2 [Moles/Vol] 29.0 mmol/L 21.0-32.0 [facility] Work Phone: Globulin (S) [Mass/Vol] 3.4 g/dL 2.2-4.2 [facility] Work Phone: Urea nitrogen/Creatinine [Mass ratio] 21.1 mg/mg 10-20 [facility] Work Phone: Laboratory - Hematology and Cell countson 02-16-2022 Erythrocyte distribution width (RBC) [Entitic vol] 42.9 fL 35.1-43.9 [facility] Work Phone: Erythrocyte distribution width (RBC) [Ratio] 12.5 % 11.6-14.6 [facility] Work Phone: Immature granulocytes/100 WBC (Bld) 0.400 % 0.0-0.9 [facility] Work Phone: Comment on above: IG% - Immature Granu locytes (promyelocytes, myelocytes and metamyelocytes) > 1% indicates that a LEFT SHIFT is Present. MCH (RBC) [Entitic mass] 30.4 pg 27.0-32.0 [facility] Work Phone: Nucleated RBC/100 WBC (Bld) [Ratio] 0 % 0-5 [facility] Work Phone: MCHC Auto (RBC) [Mass/Vol]on 02-16-2022 MCHC (RBC) [Mass/Vol] 32.6 g/dL 32-36 [facility] Work Phone: Mucus LM Ql (Urine sed)on Mucus Ql (Urine sed) 0 SEEN /hpf [facility] Work Phone: Nitrite Test strip Ql (U)on 02-16-2022 Nitrite Ql (U) Negative Negative [facility] Work Phone: No Panel Informationon 02-16 Estimated GFR (MDRD) Amer 84 mL/min >60 [facility] Work Phone: Comment on above: GFR Calc Estimated GFR (MDRD) Non-Af Amer 70 mL/min >60 [facility] Work Phone: Comment on above: Non- GFR Calc Vitamin D 25-Hydroxy 69.6 ng/mL [facility] Work Phone: Comment on above: Vitamin D 25(OH) Sta tus Range Deficiency <20 ng/mL (50nmol/L) Insufficiency 20 - 30 ng/mL (50 - 75 nmol/L) Sufficiency 30 - 100 ng/mL (75 - 250 nmol/L) Toxicity >100 ng/mL (>250 nmol/L) Platelets bldon 02-16-2022 Platelets (Bld) [#/Vol] 268 10*3/uL 150-450 [facility] Work Phone: Protein Test strip Ql (U)on 02-16-2022 Protein Ql (U) Negative Negative [facility] Work Phone: Serum or plasma albumin poonam urement (mass/volume)on 02-16-2022 Albumin [Mass/Vol] 3.8 g/dL 3.2-5.0 [facility] Work Phone: Serum or plasma albumin/glob ulin mass ratioon 02-16-2022 Albumin/Globulin [Mass ratio] 1.1 {ratio} 0.9-2.4 [facility] Work Phone: Serum or plasma calcium poonam urement (mass/volume)on 02-16-2022 Calcium [Mass/Vol] 9.0 mg/dL 8.5-10.1 [facility] Work Phone: Serum or plasma cholesterol in HDL measurement (mass/volume)on 02-16-2022 Cholesterol in HDL [Mass/Vol] 61 mg/dL >40 [facility] Work Phone: Comment on above: The drugs N-Acetylcy steine and Metamizole may falsely depress this assay. Reference Range HDL <40 mg/dL Low HDL Cholesterol HDL >or= 60 mg/dL High HDL Cholesterol Serum or plasma cholesterol in VLDL measurement (mass/volume)on 02-16-2022 Cholesterol in VLDL [Mass/Vol] 18 mg/dL 5-40 [facility] Work Phone: Serum or plasma creatinine m easurement (mass/volume)on 02-16-2022 Creatinine [Mass/Vol] 0.85 mg/dL 0.55-1.02 [facility] Work Phone: Comment on above: The validity of the calculated GFR & GFRAA in patients over 70 years has not been determined. Clinical correlation is essential. Serum or plasma low density lipoprotein (LDL) cholesterol measurement (mass/volume)on 02-16-2022 Cholesterol in LDL [Mass/Vol] 120 mg/dL 0-130 [facility] Work Phone: Serum or plasma urea nitroge n measurement (mass/volume)on 02-16-2022 Urea nitrogen [Mass/Vol] 18 mg/dL 7-18 [facility] Work Phone: Squamous epithelial cells de tection in urine sediment by light microscopyon 02-16-2022 Epithelial cells.squamous LM Ql (Urine sed) 0-5 SEEN /hpf 5-10 [facility] Work Phone: Thin prep Papanicolaou smear with manual screeningon 02-16-2022 Thin prep Papanicolaou smear with manual screening 19 U/L 15-37 [facility] Work Phone: Thin prep Papanicolaou smear with manual screening 4 5-15 [facility] Work Phone: Urine blood detectionon 06- RBC Ql (U) Negative Negative [facility] Work Phone: RBC Ql (U) 0 SEEN /hpf 0-5 [facility] Work Phone: Urine clarityon 02-16-2022 Clarity (U) Clear Clear [facility] Work Phone: Urine color determinationon 02-16-2022 Color (U) Yellow Yellow [facility] Work Phone: Urine creatinine measurement (mass/volume)on 02-16-2022 Creatinine (U) [Mass/Vol] 19.50 mg/dL NO RANGE EST. [facility] Work Phone: Urine glucose detectionon Glucose Ql (U) Normal mg/dl Normal [facility] Work Phone: Urine leukocyte esterase det ection by dipstickon 02-16-2022 Leukocyte esterase Test strip Ql (U) Negative Negative [facility] Work Phone: Urine pHon 02-16-2022 pH (U) 8.0 [pH] 5.0 - 8.0 [facility] Work Phone: Urine protein measurement (m ass/volume)on 02-16-2022 Protein (U) [Mass/Vol] mg/dL 0.0-11.8 [facility] Work Phone: Urine protein/creatinine mas s ratioon 02-16-2022 Protein/Creatinine (U) [Mass ratio] 297 mg/g CRE 0-200 [facility] Work Phone: Urine sediment bacteria coun t by microscopy (number/high power field)on 02-16-2022 Bacteria LM.HPF (Urine sed) [#/Area] 0 /[HPF] None Seen [facility] Work Phone: Urine specific gravity measu rementon 02-16-2022 Specific gravity (U) [Rel density] 1.010 1.002-1.030 [facility] Work Phone: Urobilinogen Auto test strip Ql (U)on 02-16-2022 Urobilinogen Ql (U) Normal mg/dl Normal [facility] Work Phone: Vital Signs Date Time Vital Sign Value Performing Clinician Faci lity 02-18-2025 13:53-0400 Body temperature 97.9 [degF] Dr. Bob Stewart MD Work Phone: [facility] 02-18-2025 13:53-0400 Diastolic blood pressure 83 mm[Hg] Dr. Bob Stewart MD Work Phone: [facility] 02-18-2025 13:53-0400 Heart rate 91 /min Dr. Bob Stewart MD Work Phone: [facility] 02-18-2025 13:53-0400 Respiratory rate 18 /min Dr. Bob Stewart MD Work Phone: [facility] 02-18-2025 13:53-0400 SaO2% (BldA) [Mass fraction] 100 % Dr. Bob Stewart MD Work Phone: [facility] 02-18-2025 13:53-0400 Systolic blood pressure 135 mm[Hg] Dr. Bob Stewart MD Work Phone: [facility] 02-18-2025 11:57-0400 Body height 165.[address] Bob Stewart MD Work Phone: [phone] [place] [address] 02-18-2025 11:57-0400 Body mass index (BMI) [Ratio] 28.4 kg/m2 Dr. Bob Stewart MD Work Phone: [phone](740)[phone] [place] [address] 02-18-2025 11:57-0400 Body weight 77.[address] Bob Stewart MD Work Phone: [phone] [place] [address] 11-09-2023 08:03-0500 Body height 165.[address] Bob Stewart Work Phone: [phone] [place] [address] 11-09-2023 08:03-0500 Body mass index (BMI) [Ratio] 27.6 kg/m2 Dr. Bob Stewart Work Phone: [facility] 11-09-2023 08:03-0500 Body temperature 98 [degF] Dr. Bob Stewart Work Phone: [facility] 11-09-2023 08:03-0500 Body weight 75.[address] Bob Stewart Work Phone: [facility] 11-09-2023 08:03-0500 Diastolic blood pressure 88 mm[Hg] Dr. Bob Stewart Work Phone: [phone] [place] [address] 11-09-2023 08:03-0500 Heart rate 98 /min Dr. Bob Stewart Work Phone: [facility] 11-09-2023 08:03-0500 Respiratory rate 18 /min Dr. Bob Stewart Work Phone: [facility] 11-09-2023 08:03-0500 SaO2% (BldA) [Mass fraction] 98 % Dr. Bob Stewart Work Phone: [facility] 11-09-2023 08:03-0500 Systolic blood pressure 137 mm[Hg] Dr. Bob Stewart Work Phone: [facility] 08-09-2023 08:49-0500 Body height 165.[address] Bob Stewart Work Phone: [facility] 08-09-2023 08:41-0500 Body mass index (BMI) [Ratio] 28.1 kg/m2 Dr. Bob Stewart Work Phone: [facility] 08-09-2023 08:41-0500 Body temperature 97.4 [degF] Dr. Bob Stewart Work Phone: [facility] 08-09-2023 08:41-0500 Body weight 76.[address] Bob Stewart Work Phone: [facility] 08-09-2023 08:41-0500 Diastolic blood pressure 92 mm[Hg] Dr. Bob Stewart Work Phone: [facility] 08-09-2023 08:41-0500 Heart rate 94 /min Dr. Bob Stewart Work Phone: [facility] 08-09-2023 08:41-0500 Respiratory rate 18 /min Dr. Bob Stewart Work Phone: [facility] 08-09-2023 08:41-0500 SaO2% (BldA) [Mass fraction] 98 % Dr. Bob Stewart Work Phone: [facility] 08-09-2023 08:41-0500 Systolic blood pressure 148 mm[Hg] Dr. Bob Stewart Work Phone: [facility] 05-22-2023 15:45-0400 Body height 165.[address] Bob Stewart Work Phone: [facility] 05-22-2023 15:45-0400 Body mass index (BMI) [Ratio] 28.3 kg/m2 Dr. Bob Stewart Work Phone: [facility] 05-22-2023 15:45-0400 Body temperature 99.3 [degF] Dr. Bob Stewart Work Phone: [facility] 05-22-2023 15:45-0400 Body weight 77.[address] Bob Stewart Work Phone: [facility] 05-22-2023 15:45-0400 Diastolic blood pressure 110 mm[Hg] Dr. Bob Stewart Work Phone: [facility] 05-22-2023 15:45-0400 Heart rate 99 /min Dr. Bob Stewart Work Phone: [facility] 05-22-2023 15:45-0400 Respiratory rate 20 /min Dr. Bob Stewart Work Phone: [facility] 05-22-2023 15:45-0400 SaO2% (BldA) [Mass fraction] 96 % Dr. Bob Stewart Work Phone: [facility] 05-22-2023 15:45-0400 Systolic blood pressure 160 mm[Hg] Dr. Bob Stewart Work Phone: [facility] 04-27-2023 09:14-0400 Body mass index (BMI) [Ratio] 28.1 kg/m2 Dr. Bob Stewart Work Phone: [facility] 04-27-2023 09:14-0400 Body temperature 97.2 [degF] Dr. Bob Stewart Work Phone: [facility] 04-27-2023 09:14-0400 Body weight 76.[address] Bob Stewart Work Phone: [facility] 04-27-2023 09:14-0400 Diastolic blood pressure 85 mm[Hg] Dr. Bob Stewart Work Phone: [facility] 04-27-2023 09:14-0400 Heart rate 94 /min Dr. Bob Stewart Work Phone: [facility] 04-27-2023 09:14-0400 Respiratory rate 18 /min Dr. Bob Stewart Work Phone: [facility] 04-27-2023 09:14-0400 SaO2% (BldA) [Mass fraction] 97 % Dr. Bob Stewart Work Phone: [facility] 04-27-2023 09:14-0400 Systolic blood pressure 142 mm[Hg] Dr. Bob Stewart Work Phone: [facility] 03-22-2023 13:46-0400 Body height 165.[address] Bob Stewart Work Phone: [facility] 03-22-2023 13:46-0400 Body mass index (BMI) [Ratio] 27.4 kg/m2 Dr. Bob Stewart Work Phone: [facility] 03-22-2023 13:46-0400 Body temperature 97.7 [degF] Dr. Bob Stewart Work Phone: [facility] 03-22-2023 13:46-0400 Body weight 74.[address] Bob Stewart Work Phone: [facility] 03-22-2023 13:46-0400 Diastolic blood pressure 84 mm[Hg] Dr. Bob Stewart Work Phone: [facility] 03-22-2023 13:46-0400 Heart rate 97 /min Dr. Bob Stewart Work Phone: [facility] 03-22-2023 13:46-0400 Respiratory rate 18 /min Dr. Bob Stewart Work Phone: [facility] 03-22-2023 13:46-0400 SaO2% (BldA) [Mass fraction] 99 % Dr. Bob Stewart Work Phone: [facility] 03-22-2023 13:46-0400 Systolic blood pressure 149 mm[Hg] Dr. Bob Stewart Work Phone: [facility] 01-16-2022 13:07-0400 Body weight 75.3 kg Micheline Zuniga MD Work Phone: [facility] 01-16-2022 13:07-0400 Diastolic blood pressure 82 mm[Hg] Micheline Zuniga MD Work Phone: [facility] 01-16-2022 13:07-0400 Heart rate 80 /min Micheline Zuniga MD Work Phone: [facility] 01-16-2022 13:07-0400 Systolic blood pressure 128 mm[Hg] Micheline Zuniga MD Work Phone: [facility] Encounters Encounter Date Encounter Type Care Provider Facility Start: 04-18-2025 ambulatory Bob Stewart [facility] y:[facility] Start: 02-18-2025 End: 02-18-2025 Emergency department patient visit Dr. Bob Stewart MD Work Phone: -Emergency Department Work Phone: Start: 07-11-2024 End: 07-11-2024 ambulatory Bob Stewart [place]: 06-04-2024 End: 06-09-2024 ambulatory Micheline Zuniga MD Work Phone: Internal Medicine [place] [id number] Start: 05-29-2024 End: 05-29-2024 ambulatory Bob Stewart Facility:[facility] Start: 05-27-2024 End: 05-27-2024 ambulatory Bob Stewart Facility:[facility] Start: 11-09-2023 End: 11-09-[address] Bob Stewart Work Phone: [facility] [place] Work Phone: Start: 11-07-2023 End: 11-07-[address] Bob Stewart Work Phone: [facility] Work Phone: Start: 11-07-2023 End: 11-07-[address] Bob Stewart Work Phone: [facility] Start: 09-13-2023 Non-patient / Non-visit Dr. Adeline Stewart Work Phone: [facility] Start: 09-13-2023 End: 09-13-[address] Bob Stewart Work Phone: [facility] Work Phone: Start: 09-13-2023 End: 09-13-[address] Bob Stewart Work Phone: [facility]Cardiovascular Services Work Phone: Start: 08-23-2023 Non-patient / Non-visit Dr. Adeline Stewart Work Phone: [facility] Start: 08-22-2023 End: 08-22-[address] Bob Stewart Work Phone: [facility] Work Phone: Start: 08-22-2023 End: 08-22-[address] Bob Stewart Work Phone: [facility]Pulmonary Services/Neurology Work Phone: Start: 08-15-2023 End: 08-15-[address] Bob Stewart Work Phone: [facility] Work Phone: Start: 08-15-2023 End: 08-15-[address] Bob Stewart Work Phone: [facility] Start: 08-09-2023 End: 08-09-[address] Bob Stewart Work Phone: [facility] Work Phone: Start: 06-20-2023 ambulatory Micheline Zuniga MD Work Phone: Internal Medicine [facility] Start: 05-28-2023 End: 05-28-[address] Bob Stewart Work Phone: [facility] Work Phone: Start: 05-28-2023 End: 05-28-[address] Bob Stewart Work Phone: [facility]-Outpatient Breast Imaging Work Phone: Start: 05-22-2023 End: 05-22-[address] Bob Stewart Work Phone: [facility] Work Phone: Start: 04-27-2023 End: 04-27-[address] Bob Stewart Work Phone: [facility]Pulmonary Medicine [facility] Work Phone: Start: 04-04-2023 End: 04-04-[address] Bob Stewart Work Phone: [facility] Work Phone: Start: 04-04-2023 End: 04-04-[address] Bob Stewart Work Phone: [facility]-Cat Scan, [facility] Work Phone: Start: 04-02-2023 End: 04-02-[address] Bob Stewart Work Phone: [facility] Work Phone: Start: 04-02-2023 End: 04-02-[address] Bob Stewart Work Phone: [facility]-Sleep Lab Work Phone: Start: 03-22-2023 End: 03-22-[address] [facility] Work Phone: Start: 03-08-2023 End: 03-08-2023 ambulatory [facility] Work Phone: Start: 03-08-2023 End: 03-08-2023 Patient encounter procedure [facility]-Outpatient Bone Densitometry Work Phone: Start: 02-08-2023 End: 02-08-2023 ambulatory [facility] Work Phone: Start: 02-08-2023 End: 02-08-2023 [facility] Start: 06-14-2022 ambulatory Micheline Zuniga MD Work Phone: Internal Medicine [facility] Start: 05-24-2022 End: 05-24-2022 ambulatory [facility] Work Phone: Start: 05-24-2022 End: 05-24-2022 Patient encounter procedure [facility]Outpatient Breast Imaging Start: 05-05-2022 End: 05-05-2022 [facility] Start: 03-24-2022 End: 03-24-2022 Patient encounter procedure [facility]Cat Scan, [facility] Start: 02-16-2022 End: 02-16-2022 [facility] Start: 01-16-2022 End: 01-16-2022 Patient encounter procedure Micheline Zuniga MD Work Phone: [facility] Comment on above: Mixed hyperlipidemia (Primary Dx); Polycythemia Start: 12-29-2021 Patient Msg Gwen Rizzo BOW TACKER.RESEARCH STAFF MEMBER Work Phone: [facility] Comment on above: Refill request Start: 12-28-2021 Refill Micheline Zuniga MD Work Phone: [facility] Comment on above: Refill Request Procedures Date Procedure Procedure Detail Performing Clinician Start: 05-28-2023 Screening mammography Kimberly Stewart Work Phone: Start: 04-04-[address] Bob randhawa Work Phone: Start: 03-08-2023 Dual energy X-ray absorptiometry Start: 05-24-2022 Screening mammography Start: 03-24-2022 CT of chest Start: 01-16-2022 Adult depression scr eening assessment Micheline Zuniga MD Work Phone: Start: 01-10-2022 Lipid 1996 panel - S alok or Plasma Micheline Zuniga MD Work Phone: Start: 04-27-2021 Mammography Gwen cole BOW TACKER.RESEARCH STAFF MEMBER Work Phone: Start: 10-17-2018 Adult depression scr eening assessment Gwen Rizzo BOW TACKER.RESEARCH STAFF MEMBER Work Phone: Start: 04-18-2018 Colonoscopy Gwen cole BOW TACKER.RESEARCH STAFF MEMBER Work Phone: Plan of Treatment Date Care Activity Detail Author Start: 04-18-2028 Colonoscopy COLONOSCOPY [facility] Start: 04-18-2028 COLORECTAL CANCER SCREENING COLORECTAL CANCER SCREENING [facility] Start: 04-18-2028 Screening for malign ant neoplasm of colon [facility] Start: 01-10-2027 Lipid 1996 panel - Serum or Plasma Lipid Screening [facility] Start: 01-10-2027 Lipid panel Lipid Screening [facility] Start: 01-10-2027 LIPID SCREEN LIPID SCREEN [facility] Start: 2026 RSV Vaccine (1 - 1-d ose 75+ series) RSV Vaccine (1 - 1-dose 75+ series) [facility] Start: 09-13-2025 LIPID SCREEN LIPID SCREEN [facility] Start: 02-18-2025 [facility] Start: 01-10-2025 DIABETES SCREEN DIABETES SCREEN [facility] Start: 01-10-2025 Diabetes Screening Diabetes Screenin g [facility] Start: 05-11-2024 Covid-19 Vaccine ( season) Covid-19 Vaccine () [facility] Start: 05-11-2024 Influenza vaccination Influenza Vacc ine (#1) [facility] Start: 09-13-2023 DIABETES SCREEN DIABETES SCREEN [facility] Start: 09-10-2023 Advance Directive Discussion Advance Directive Discussion [facility] Start: 05-11-2023 Influenza vaccination Influenza Vacc ine (#1) [facility] Start: 01-16-2023 Adult depression screening assessment DEPRESSION SCREENING [facility] Start: 09-10-2022 Advance Directive Discussion Advance Directive Discussion [facility] Start: 09-10-2022 Depression Assessment Depression Ass essment [facility] Start: 05-11-2022 Influenza vaccination INFLUENZA (#1) [facility] Start: 04-27-2022 Mammography [facility] Start: 04-27-2022 Screening for malign ant neoplasm of breast Mammogram Screening [facility] Start: 02-27-2022 End: 04-29-2022 CBC W Auto Differential panel - Blood CBC + DIFF Lab Routine Polycythemia Expected: 02/27/2022, Expires: 04/29/2022 [facility] Work Phone: Comment on above: Expected: 02/27/2022 , Expires: 04/29/2022 Start: 02-27-2022 End: 04-29-2022 HEPATIC FUNCTION PNL HEPATIC FUNCTION PNL Lab Routine Mixed hyperlipidemia Expected: 02/27/2022, Expires: 04/29/2022 [facility] Work Phone: Comment on above: Expected: 02/27/2022 , Expires: 04/29/2022 Start: 02-27-2022 End: 04-29-2022 LIPID PANEL BASIC LIPID PANEL BASIC Lab Routine Mixed hyperlipidemia Expected: 02/27/2022, Expires: 04/29/2022 [facility] Work Phone: Comment on above: Expected: 02/27/2022 , Expires: 04/29/2022 Start: 09-10-2021 ADVANCE DIRECTIVE DISCUSSION ADVANCE DIRECTIVE DISCUSSION [facility] Start: 09-10-2021 DEPRESSION ASSESSMENT DEPRESSION ASS ESSMENT [facility] Start: 10-17-2019 Adult depression screening assessment DEPRESSION SCREENING [facility] Start: 09-20-2019 Urine microalbumin profile [facility] Start: 02-07-2016 FECAL OCCULT BLOOD FECAL OCCULT BLOO D [facility] Start: 02-07-2016 Screening for malign ant neoplasm of colon Fecal Occult Blood [facility] Start: 06-29-2014 SHINGRIX VACCINE (2 of 3) SHINGRIX VACCINE (2 of 3) [facility] Start: 1996 COLOGUARD (FIT-DNA) COLOGUARD (FIT-D NA) [facility] Start: [address] COLONOGRAPHY [facility] Start: 1996 Screening for malign ant neoplasm of colon [facility] Start: 1996 SIGMOIDOSCOPY SIGMOIDOSCOPY [facility] Start: 1969 Anxiety Screening Anxiety Screening [facility] Start: 1969 Depression Screening Depression Scre ening [facility] Start: 1956 COVID-19 VACCINE (#1) COVID-19 VACCI NE (#1) [facility] Start: 1956 COVID-19 VACCINE (1) COVID-19 VACCIN E (1) [facility] Start: 01-28-1952 COVID-19 VACCINE (#1) COVID-19 VACCI NE (#1) [facility] CT Chest [facility] End: 07-04-2025 DBT Breast - bilateral screening HARPREET SCREENING W YUDI Radiology Routine Encounter for screening mammogram for breast cancer 1 Occurrences starting 06/04/2024 until 07/04/2025 [facility] Work Phone: Comment on above: 1 Occurrences starti ng 06/04/2024 until 07/04/2025 End: 07-19-2024 HARPREET SCREENING HARPREET SCREENING Radiology Routine Encounter for screening mammogram for breast cancer 1 Occurrences starting 06/20/2023 until 07/19/2024 [facility] Work Phone: Comment on above: 1 Occurrences starti ng 06/20/2023 until 07/19/2024 Measurement of respiratory function [facility] Patient Education ED Seasonal Allergy [facility] Work Phone: Patient referral [facility] Work Phone: End: 07-14-2023 Screening mammography bi 2-view breast inc cad HARPREET SCREENING Radiology Routine Encounter for screening mammogram for breast cancer 1 Occurrences starting 06/14/2022 until 07/14/2023 [facility] Work Phone: Comment on above: 1 Occurrences starti ng 06/14/2022 until 07/14/2023 [facility] Immunizations Immunization Date Immunization Notes Care Provider Emre yan 05-22-2023 tetanus toxoid, redu caro diphtheria toxoid, and acellular pertussis vaccine, adsorbed Dr. Bob Stewart Work Phone: [facility] 06-22-2021 influenza, high dose seasonal, preservative-free Gwen Haagen BOW TACKER.RESEARCH STAFF MEMBER Work Phone: [facility] 06-22-2021 influenza, injectabl e, quadrivalent, preservative free Micheline Zuniga MD Work Phone: [facility] 06-22-2021 influenza virus vacc ine, unspecified formulation Micheline Zuniga MD Work Phone: [facility] 05-27-2020 influenza (aIIV4) vaccine, age 65+ yr, quadrivalent, PF (FLUAD QUADRIVALENT) Gwen Haagen BOW TACKER.RESEARCH STAFF MEMBER Work Phone: [facility] 05-27-2020 influenza, high dose seasonal, preservative-free Gwen Haagen BOW TACKER.RESEARCH STAFF MEMBER Work Phone: [facility] 06-19-2019 influenza, high dose seasonal, preservative-free Gwen Haagen BOW TACKER.RESEARCH STAFF MEMBER Work Phone: [facility] 07-31-2018 pneumococcal polysaccharide vaccine, 23 valent Gwen Haagen BOW TACKER.RESEARCH STAFF MEMBER Work Phone: [facility] 06-17-2018 influenza, high dose seasonal, preservative-free Gwen Haagen BOW TACKER.RESEARCH STAFF MEMBER Work Phone: [facility] 06-11-2017 influenza, high dose seasonal, preservative-free Gwen Haagen BOW TACKER.RESEARCH STAFF MEMBER Work Phone: [facility] 03-29-2017 pneumococcal conjuga te vaccine, 13 valent Gwen Haagen BOW TACKER.RESEARCH STAFF MEMBER Work Phone: [facility] 05-04-2014 zoster vaccine, live Gwen Haagen BOW TACKER.RESEARCH STAFF MEMBER Work Phone: [facility] 06-10-2013 influenza virus vacc ine, unspecified formulation Gwen Haagen BOW TACKER.RESEARCH STAFF MEMBER Work Phone: [facility] 09-20-2009 tetanus toxoid, redu caro diphtheria toxoid, and acellular pertussis vaccine, adsorbed Gwen Rizzo BOW TACKER.RESEARCH STAFF MEMBER Work Phone: [facility] Work Phone: 09-18-2008 pneumococcal polysaccharide vaccine, 23 valent Gwen Rizzo BOW TACKER.RESEARCH STAFF MEMBER Work Phone: [facility] Work Phone: 12-16-1998 diphtheria and tetan us toxoids, adsorbed for pediatric use Gwen Rizzo BOW TACKER.RESEARCH STAFF MEMBER Work Phone: [facility] Work Phone: Payers Date Payer Category Payer Self-pay [id number] 2023 Medicare [id number] 2023 Unknown [id number] 2016 Medicare MEDICARE MEDICAR E A AND B [id number] 2016-Present [phone] [place] [address] Medicare [id number] 2016 Medicare MEDICARE MEDICAR E A AND B [id number] 2016-Present [phone] [place] [address] Medicare [id number] 2016 Unknown [employer] DICARE SUPPLEMENT [id number] 2016-Present [phone] [address] [place] [address] Indemnity [id number] 2016 Unknown [employer] DICARE SUPPLEMENT [id number] 2016-Present [phone] [address] [place] [address] Indemnity [id number] Unknown [id number] Unknown [id number] 2 Unknown [id number] 2 Unknown [id number] 2 Unknown [id number] 2 Unknown [id number] 2 Social History Date Type Detail Facility Start: 03-08-2021 End: 02-18-2025 Tobacco smoking status NHIS Ex-smoker [facility] Work Phone: Start: 09-10-1968 End: 09-10-2003 History of tobacco use Current smoker [facility] Work Phone: Start: 09-10-1968 End: 09-10-2003 History of tobacco use Cigarette Smoker [facility] Work Phone: Start: 08-15-2020 End: 03-08-2021 Cigarettes smoked current (pack per day) - Reported 0.25 [facility] Start: 03-08-2021 Tobacco use and exposure Smokeless tobacco non-user [facility] Work Phone: Start: 09-12-2021 End: 04-26-2022 Alcohol intake Current non-drinker of alcohol (finding) [facility] Start: 1950 Sex Assigned At Not on file [facility] Start: 01-06-2022 End: 01-16-2022 Exposure to SARS-CoV-2 (event) Not sure [facility] Start: 1950 Sex Assigned At Female W [facility] Start: 03-22-2023 End: 08-09-2023 Tobacco smoking status NHIS Unknown if ever smoked [facility] Start: 08-15-2020 End: 04-26-2022 Tobacco use panel [facility] Adult Depression Screening Assessment 0 [facility] Mental Status Date Assessment Result Facility 02-18-2025 Cognitive function Level Of Cons ciousness Awake;Alert;Appropriate;Follow s Commands [facility] Work Phone: Clinical Notes 09-22-2010 to 02-18-2025 Note Date & Type Note Facility 02-18-2025 Discharge summary [facility] 02-18-2025 Discharge summary Note Date/Time February 18, 2025 2:00pm [facility] Medical Records Department [address] [place] [address] Emergency Department Summary 02/18/25 MR#: [id number] Acct: [id number] Name: AQUILES MCCLENDON Rep #:[id number] : [id number] 74 From: Javon Hairston MD PCP: Dr. Bob Stewart MD Status:RE G ER Location: ED HPI History of Present Illness Chief Complaint: General Illness Detail of Chief Complaint: Head feels heavy. Nasal drainage. Informant: patient Onset/Context/Timing Onset: Days Context: Gradual Onset Timing: Continuous Current Severity: Mild Maximum Severity: Mild Narrative Narrative: 74-year-old female is on oxygen at night. she has high cholesterol. Said her head feels heavy. She has had prior symptoms like this before. She is having alot of nasal and throat drainage. She denies any headache. PCP started on Rosanna. She did not think it was helping. She stopped it. She had prior ear tubes again that did not help in the past. She really denies shortness of breath. She denies any chest pain. She said she does [employer] classes III times aweek and she has not had any trouble doing that. She has no exertional chest pain or exertional dyspnea. Prior similar symptoms: Yes Recent Illness/Hospitalization: No PFSH PFSH Medical History On home oxygen therapy Dog bite of right lower leg Home Medications ?Medication ?Instructions ?Recorded ?Last Taken ?Type aspirin 81 mg tablet,delayed 81 mg PO DAILY 03/22/23 U nknown History release (Adult Aspirin Regimen) cholecalciferol (vitamin D3) 50 50 mcg PO DAILY Unknown History mcg (2,000 unit) capsule folic acid 20 mg capsule 20 mg PO DAILY 03/22/23 Unkn own History multivitamin with minerals-folic 1 tab PO DAILY Unknown History acid 80 mcg chewable tablet (Centrum Adult 50 Plus) pravastatin 40 mg tablet 40 mg PO DAILY 03/22/23 Unkn own History prednisone 20 mg tablet 40 mg (2 x 20 mg) PO DAILY 7 days 02/18/25 Unknown Rx #14 tabs Allergy/AdvReac Type Severity Reaction Status Date / Time amoxicillin Allergy Intermediate Rash Verified 02/18/25 11:57 Surgical History [place] teeth removed Social History Smoking Status: Former smoker quit date: 03/10/21 Tobacco: How many years used: 50 ROS ROS ED ROS Narrative Nasal drainage. Constitutional Constitutional ED: Denies fever(s) Eyes Eyes: Denies blurry vision ENT ENT ED: Denies ear pain Cardiovascular Cardiovascular: Denies chest pain, palpitations or racing heartbeat Respiratory/Chest Respiratory/Chest: Denies cough, dyspnea or dyspnea on exertion Gastrointestinal Gastrointestinal: Denies abdominal pain, diarrhea, melena, nausea or vomiting Genitourinary Genitourinary ED: Denies dysuria or hematuria Musculoskeletal Musculoskeletal: Denies arthralgias Integumentary Denies abscess Neurologic Neurologic: Denies headache(s) or paresthesias Psychiatric Psychiatric: Denies anxiety or depression Endocrine Endocrinology: Denies cold intolerance Hematologic/Lymphatic Hematologic/Lymphatic: Reports none Allergic/Immunologic Allergic/Immunologic ED: Denies mouth swelling, tongue swelling or urticaria EXAM Physical Exam Narrative Exam Narrative: [id number] female sitting upright in bed. Vital signs are stable afebrile. She looks quite well. Pulse ox 100% on room air no signs of hypoxia. No distress. H EENT exam pupils round reactive light. TMs are scared by wax. Nasal congestion. No pus. No frontal or maxillary sinus tenderness. Posteriorpharynx moist and pink. Neck nontender no JVD. No lymphadenopathy. Lungs clear to auscultation bilateral. Heart regular rhythm rate about 85 no murmur. Chest wall ribs nontender. Abdomen is soft, nontender nondistended normal bowelsounds without peritoneal signs. She is moving all 4 extremities. 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 Dorsi plantarflexion intact. Calves are nontender without edemaor cords. Back nontender. Neurologically she is awake alert. Answer questionsfollowing commands. NIH 0. She has a very benign normal exam. Const Vital Signs: 02/18/25 11:57 02/18/25 13:30 02/18/25 13:30 Temperature 98.0 F Temperature Source Oral Pulse Rate 106 H 72 Respiratory Rate 16 16 Respiratory Effort Normal Non-Labored Respiratory Pattern Normal Blood Pressure 137/93 H 135/83 H Blood Pressure Mean 107 100 Pulse Ox 100 99 Oxygen Delivery Method Room Air Room Air Positive well nourished and well developed; Negative for cachectic, contracturesor unkempt General Appearance ED: well developed and NAD; Negative for unkempt, cachectic, contractures, cyanotic, diaphoretic or pallor Nutritional Appearance: Negative for cachectic HEENT Reports moist mucous membranes Negative for trauma or tenderness Eyes PERRL and EOMs intact bilaterally General Eye ED: Negative for pale conjunctiva or scleral icterus Neck no lymphadenopathy, supple and no JVD Chest Wall inspection of chest normal and palpation of chest normal Resp normal respiratory effort and clear to auscultation bilaterally Effort and Inspection: Negative for retractions Auscultation: Negative for rales, rhonchi, wheezes or diminished lung sounds Cardio regular rate, regular rhythm, S1 normal heart sound, S2 normal heart sound and no murmurs GI normal to inspection, nondistended, normoactive bowel sounds, non-tender, non-distended and no masses Inspection: Negative for abdominal distention Palpation: soft; Negative for tender, guarding or rebound tenderness present Back/Spine no CVA tenderness General Back: Negative for CVA tenderness Cervical Spine: Negative for cervical spine tenderness Thoracic Spine / Upper Back: Negative for thoracic spinal tenderness or paraspinal muscle tenderness Lumbar Spine / Lower Back: Negative for lumbar spinal tenderness Extremity normal to inspection General Extremety ED: Negative for edema or tenderness General Extremity: Negative for edema Neuro oriented x3 and CN's II-XII intact bilaterally Sensorium / Orientation: alert; Negative for orientation impaired, lethargic or stuporous Motor Exam: strength 5/5 throughout Psych mental status grossly normal Appearance: Negative for unkempt Attitude: No agitated Mood & Affect: Negative for depressed, anxious or tearful Skin no rashes or lesions noted, no wounds and skin turgor normal General Skin Exam: Negative for jaundice or pallor Lesions: No lesion noted Rashes: No rashes noted Trauma: Negative for abrasion Wounds: Negative for wounds noted MDM MDM MDM Narrative Medical decision making narrative: 74-year-old female states her head feels heavy. She has had this before when she had seasonal allergies. Her exam was completely normal. She had an EKG done that was unremarkable through triage. I explained to the patient I am happy to do test such as a CBC and chemistry chest x-ray etc. She did not want any testing. She will be started on prednisone 40 mg a day to see if it helps her symptoms she will follow-up with her primary care physician if not improvingfor further evaluation. History & Record Review Discussion w/independent historian: Patient Additional record(s) reviewed:: Prior inpatient record, Prior outpatient record,Prior ED visit and Prior labs Lab Data Lab results narrative: Patient did not want any labs or imaging. Rhythm Strip Rhythm Strip: Sinus Rhythm Rate: 86 Ectopy: None EKG Initial EKG: Attestation: I personally reviewed and interpreted this EKG as follows: Interpretation: Sinus Rhythm and No Acute Injury Pattern Comments: Normal sinus rhythm rate 86 no acute signs of AL nor ischemia Discharge Plan Triage Chief Complaint: General Illness ED Provider: Javon Hairston Dx/Rx/DC Orders Clinical Impression: Seasonal allergies Instructions: ED Seasonal Allergy Prescriptions: New prednisone 20 mg tablet 40 mg PO DAILY 7 Days Qty: 14 0RF No Action pravastatin 40 mg tablet 40 mg PO DAILY cholecalciferol (vitamin D3) 50 mcg (2,000 unit) capsule 50 mcg PO DAILY aspirin [Adult Aspirin Regimen] 81 mg tablet,delayed release (DR/EC) 81 mg PO DAILY Centrum Adult 50 Plus 80 mcg tablet,chewable 1 tab PO DAILY folic acid 20 mg capsule 20 mg PO DAILY Primary Care Provider: Bob Stewart Referrals: Bob Stewart MD [Primary Care Provider] - 1 Week if not improving Activity Restrictions/Additional Instructions: This may or may not be secondary to seasonal allergies. Prednisone 40 mg once a day for 1 week. Follow-up with your doctor if not improving. Return the emergency department if you are feeling worse. Your examis normal today. Print Language: Chilean Disposition Disposition: Home, Self Care What to do if you have Problems For any increased pain, shortness of breath, bleeding, nausea or vomiting, chestpain, or any unexpected problems, contact your Primary Care Provider. Call [facility] ([phone]) or report to the closest Emergency Room. Call 911 if necessary. 02/18/25 1400 <Electronically signed by Javon Hairston MD> Cosigner Signature (if applicable): CC: Dr. Bob Stewart MD ~ Signed [facility] Work Phone: [phone] 642-987309-25-2024 NotePatient Outreach (INTMMN) AQUILES MCCLENDON ([id number]) 1950 F Date Time Provider Department 06/04/24 MICHELINE ZUNIGA INTXIAO During your visit today, we recorded the following information about you: Allergies As of Date: 06/04/2024 Noted Allergy Reaction AMOXICILLIN 07/11/2005 4 - Hives Date Reviewed: 09/12/2021 Reviewed by: Marti Mayen (Denial Resolution Specialist) - Fully Assessed Visit Diagnosis:Encounter for screening mammogram for breast cancer [Z12.31] Order(s):[facility] SCREENING W YUDI [[id number]] Order #: [id number] FUTURE Prescriptions as of 06/09/2024 - pravastatin (PRAVACHOL) 20 mg tablet Take 1 tablet by mouth once daily. - Cholecalciferol, Vitamin D3, 2,000 unit cap Take 1 tablet by mouth once daily. - folic acid 1 mg tablet Take 2 tablets by mouth once daily. - omega-3 fatty acids/vitamin e(FISH OIL 1,000 MG CAP) Take one(1) tablet daily. - aspirin(ECOTRIN LOW STRENGTH 81 MG TAB) Take one(1) tablet daily. - CENTRUM SILVER TAB Take one(1) tablet daily. Problem List As Of Date 06/04/2024 Noted Resolved SKIN LESION [L98.9] 07/12/2005 HEMORRHOIDS NOS [K64.9] PERS HX COLONIC POLYPS [Z86.010] DIVERTICULOSIS OF COLON W/O BLEED [K57.30] DISC DEGENERATION NOS [ZGF8608] FIBROSCLEROSIS OF BREAST [N60.39] IRRITABLE COLON [K58.9] Hypertension [I10] 09/22/2010 10/29/2012 Osteopenia [M85.80] 07/25/2011 Hyperlipidemia [E78.5] 10/29/2012 Tobacco use [Z72.0] 03/29/2017 Encounter Status:Closed by STORM OCHOA on 06/09/24[facility] 08-23-2023 Procedure [facility]10-11-2023 NotePatient Outreach (INTMMN) AQUILES MCCLENDON ([id number]) 1950 F Date Time Provider Department 06/20/23 MICHELINE ZUNIGA During your visit today, we recorded the following information about you: Allergies As of Date: 06/20/2023 Noted Allergy Reaction AMOXICILLIN 07/11/2005 4 - Hives Date Reviewed: 09/12/2021 Reviewed by: Marti Mayen LPN - Fully Assessed Visit Diagnosis:Encounter for screening mammogram for breast cancer [Z12.31] Order(s):[facility] SCREENING [[id number]] Order #: [id number] FUTURE Prescriptions as of 06/25/2023 - aspirin(ECOTRIN LOW STRENGTH 81 MG TAB) Take one(1) tablet daily. - CENTRUM SILVER TAB Take one(1) tablet daily. - Cholecalciferol, Vitamin D3, 2,000 unit cap Take 1 tablet by mouth once daily. - folic acid 1 mg tablet Take 2 tablets by mouth once daily. - omega-3 fatty acids/vitamin e(FISH OIL 1,000 MG CAP) Take one(1) tablet daily. - pravastatin (PRAVACHOL) 20 mg tablet Take 1 tablet by mouth once daily. Problem List As Of Date 06/20/2023 Noted Resolved SKIN LESION [L98.9] 07/12/2005 HEMORRHOIDS NOS [K64.9] PERS HX COLONIC POLYPS [Z86.010] DIVERTICULOSIS OF COLON W/O BLEED [K57.30] DISC DEGENERATION NOS [[id number]] FIBROSCLEROSIS OF BREAST [N60.39] IRRITABLE COLON [K58.9] Hypertension [I10] 09/22/2010 10/29/2012 Osteopenia [M85.80] 07/25/2011 Hyperlipidemia [E78.5] 10/29/2012 Tobacco use [Z72.0] 03/29/2017 Encounter Status:Closed by InstablogsUSER on 06/25/23[facility] 01-16-2022 History of Present illness Narrative* Micheline Zuniga MD - 01/16/2022 1:13 PM EDT Patient presents with: Follow Up HPI: Patient presents today for office visit for follow up. HYPERLIPIDEMIA: Patient is taking medications: Yes. Patient is watching diet: Yes. Patient denies myalgias: Yes. Patient denies gi upset: Yes Polycythemia is stable. Based on previous labs, has decreased slightly. Beltrami likely secondary to smoking but has now stopped it. Will have her push fluids and follow. Bowels are doing well after seeing gi. Component Latest Ref Rng & Units 01/10/2022 WBC 3.70 - 11.00 k/uL 6.13 RBC 3.90 - 5.20 m/uL 5.30 (H) Hemoglobin 11.5 - 15.5 g/dL 16.0 (H) Hematocrit 36.0 - 46.0 % 49.4 (H) MCV 80.0 - 100.0 fL 93.2 MCH 26.0 - 34.0 pg 30.2 MCHC 30.5 - 36.0 g/dL 32.4 RDW-CV 11.5 - 15.0 % 12.4 Platelet Count 150 - 400 k/uL 314 MPV 9.0 - 12.7 fL 9.6 Neut% % 58.7 Abs Neut (ANC) 1.45 - 7.50 k/uL 3.60 Lymph% % 30.5 Abs Lymph 1.00 - 4.00 k/uL 1.87 Nicollet% % 7.2 Abs Nicollet <0.87 k/uL 0.44 Eosin% % 2.6 Abs Eosin <0.46 k/uL 0.16 Baso% % 0.8 Abs Baso <0.11 k/uL 0.05 Immature Gran % % 0.2 IMMATURE GRANS (ABS) <0.10 k/uL <0.03 NRBC /100 WBC 0.0 Absolute nRBC <0.01 k/uL <0.01 DTYPE Auto Protein, Total 6.3 - 8.0 g/dL 7.7 Albumin 3.9 - 4.9 g/dL 4.7 Calcium 8.5 - 10.2 mg/dL 9.8 Bilirubin, Total 0.2 - 1.3 mg/dL 0.5 Alkaline Phosphatase 34 - 123 U/L 93 AST 13 - 35 U/L 28 ALT 7 - 38 U/L 23 Glucose 74 - 99 mg/dL 93 BUN 7 - 21 mg/dL 19 Creatinine 0.58 - 0.96 mg/dL 0.89 Sodium 136 - 144 mmol/L 141 Potassium 3.7 - 5.1 mmol/L 4.0 Chloride 97 - 105 mmol/L 104 CO2 22 - 30 mmol/L 26 Anion Gap 9 - 18 mmol/L 11 eGFR >=60 mL/min/1.73m 70 Cholesterol, Total <200 mg/dL 244 (H) Triglyceride <150 mg/dL 92 HDL Cholesterol >39 mg/dL 68 Non HDL Cholesterol <130 mg/dL 176 (H) Fasting Time hrs 15 VLDL Cholesterol <30 mg/dL 18 TC:HDL Ratio <5.10 3.59 LDL Cholesterol <100 mg/dL 158 (H) LDL:HDL Ratio <2.54 2.32 MEDICATIONS: Current Outpatient Medications Medication Sig pravastatin (PRAVACHOL) 10 mg tablet Take 1 tablet by mouth once daily. Cholecalciferol, Vitamin D3, 2,000 unit cap Take 1 tablet by mouth once daily. folic acid 1 mg tablet Take 2 tablets by mouth once daily. omega-3 fatty acids/vitamin e(FISH OIL 1,000 MG CAP) Take one(1) tablet daily. aspirin(ECOTRIN LOW STRENGTH 81 MG TAB) Take one(1) tablet daily. CENTRUM SILVER TAB Take one(1) tablet daily. No current facility-administered medications for this visit. ALLERGIES: ALLERGIES Allergen Reactions Amoxicillin Hives PAST MEDICAL HISTORY Diagnosis Date Degeneration of intervertebral disc, site unspecified Diverticulosis of colon (without mention of hemorrhage) Diverticulosis Fibrosclerosis of breast Hyperlipidemia Irritable bowel syndrome PAST SURGICAL HISTORY Procedure Laterality Date COLONOSCOPY FLX DX W/COLLJ SPEC WHEN PFRMD 08/26/2004 Colonoscopy COLONOSCOPY FLX DX W/COLLJ SPEC WHEN PFRMD 11/19/07 COLONOSCOPY FLX DX W/COLLJ SPEC WHEN PFRMD 12/11/2012 Colonoscopy COLONOSCOPY FLX DX W/COLLJ SPEC WHEN PFRMD 04/18/2018 small hyperplastic polyp LIG/TRNSXJ FLP TUBE ABDL/VAG APPR UNI/BI Tubal ligation PAST SURGICAL HISTORY OF Bilateral 05/2017 bilateral tooth abscesses drained FAMILY HISTORY Problem Relation Age of Onset Cancer Paternal Aunt uterine cancer Cancer Maternal Grandmother ovarian cancer other (scleroderma [Other]) Mother other (vasculitis [Other]) Father Social History Tobacco Use Smoking status: Former Smoker Packs/day: 0.25 Years: 35.00 Pack years: 8.75 Types: Cigarettes Quit date: 09/10/2003 Years since quittin.3 Smokeless tobacco: Never Used Substance Use Topics Alcohol use: No Alcohol/week: 1.7 standard drinks Drug use: No Reviewed current medications, allergies, past medical history, surgical history, family history andsocial history today. REVIEW OF SYSTEMS RESPIRATORY: Negative for cough, hemoptysis, wheezing, COPD, dyspnea or shortness of breath CARDIOVASCULAR: Negative for chest pain, leg swelling, hypertension, CHF or palpitations All other reviewed and negative other than HPI. HEALTH MAINTENANCE: Reviewed health maintenance issues today and recommended the following in detail. COVID-19 VACCINE- Discussed risks and benefits of covid vaccine. Recommended they consider it. SHINGRIX VACCINE(2 of 3)-not done DTAP,TDAP,TD(3 - Td or Tdap) due on 09/20/2019 ADVANCE DIRECTIVE DISCUSSION-Discussed advanced planning with patient today. They have a DPOA/Living Will:Yes Chosen surrogate for decision maker:NA Blank DPOA/Living Will forms given:Yes Reminded patients to have copies of their forms brought into the office to have placed in their medical records. Questions were answered. VITALS: BP 128/82 Pulse 80 Wt 75.3 kg (166 lb) BMI (P) 28.00 kg/m Last 4 Encounter Wt Readings: Date: Wt: 01/16/2022 75.3 kg (166 lb) 09/12/2021 73.9 kg (163 lb) 10/18/2020 71.7 kg (158 lb) 04/13/2020 69.9 kg (154 lb) PHYSICAL EXAMINATION: General appearance: Well appearing, alert, in no acute distress, well-hydrated, well nourished. Skin: Skin color, texture, turgor normal, no suspicious rashes or lesions Head: Normocephalic, no masses, lesions, tenderness or abnormalities Neck: Supple, no adenopathy; thyroid symmetric, normal size, no bruits Lungs: Lungs clear to auscultation. No wheezing, rhonchi, rales Heart: RRR without murmur, gallop, or rubs. No ectopy Abdomen: Normal abdominal exam, Abdomen soft, non-tender. Bowel sounds normal. No masses, organomegaly Extremities: No deformities, edema, skin discoloration, clubbing or cyanosis. Good capillary refill. Musculoskeletal: No joint swelling, deformity, or tenderness ASSESSMENT/PLAN: 1. Mixed hyperlipidemia - ICD9: 272.2, ICD10: E78.2 (primary diagnosis) - increase dose. Check labs in six weeks. - PRAVASTATIN 20 MG TABLET - HEPATIC FUNCTION PNL - LIPID PANEL BASIC 2. Polycythemia - ICD9: 238.4, ICD10: D75.1 - continue to push fluids. Recheck in one month. Consider heme onc if raises since no longer smoking. - CBC + DIFF Micheline Zuniga RTO in annually and prn. documented in this encounterUniversity [facility]als [facility]04-21-2022 Miscellaneous Notes* Telephone Encounter - Mark Kimble - 12/29/2021 8:55 AM EDT Patient active on [facility]. Patient notified via [facility] message. * Telephone Encounter - Gwen Rizzo APRN.CNP - 12/28/2021 5:57 PM EDT Script sent. Due for an appointment and labs. Please let patient know and help schedule. Gwen Rizzo APRN.RAMÍREZ * Telephone Encounter - Anh Pa - 12/28/2021 1:54 PM EDT Patient has been identified by name and date of : Yes Pending Prescriptions Disp Refills PRAVASTATIN 10 MG TABLET 90 tablet 3 Sig: Take 1 tablet by mouth once daily. SADIE: No KWAME-10/18/20 Labs-11/18/20 NOV-none med filled 10/18/20 RX INSTRUCTIONS: Patient aware RX will be sent to pharmacy. No need to notify patient. Anh Leonardo Pss documented in this encounterUniversity Hospitals Cleveland [facility] Center04-21-2022 Miscellaneous Notes* Telephone Encounter - Mark Kimble - 12/29/2021 8:51 AM EDT Patient notified via [facility] message. documented in this encounterUniversity Hospitals [facility]01-13-2011 History of Past illness Narrative* Problem Noted Date Resolved Date Hypertension 09/22/2010 10/29/2012 documented as of this encounter (statuses as of 12/29/2021) [facility] History of Past illness Narrative* Problem Noted Date Resolved Date Hypertension 09/22/2010 10/29/2012 documented as of this encounter (statuses as of 12/29/2021) [facility] History of Past illness Narrative* Problem Noted Date Resolved Date Hypertension 09/22/2010 10/29/2012 documented as of this encounter (statuses as of 01/16/2022) [address]13-2011 History of Past illness Narrative* Problem Noted Date Resolved Date Hypertension 09/22/2010 10/29/2012 documented as of this encounter (statuses as of 06/19/2022) [facility] History of Past illness Narrative* Problem Noted Date Diagnosed Date Resolved Date Hypertension 09/22/2010 10/29/2012 documented as of this encounter (statuses as of 06/25/2023) [facility] note* Diagnosis Mixed hyperlipidemia- Primary Polycythemia Polycythemia vera documented in this encounter [facility] noteNo assessment information availableWSelect [facility] Work Phone: [email or web address] note* Diagnosis Encounter for screening mammogram for breast cancer documented in this encounter [facility] note* Diagnosis Onset Date Resolution Status Daytime hypersomnia acute Smoking greater than 20 pack years [facility] Work Phone: evaluation note* Diagnosis Onset Date Resolution Status Daytime hypersomnia acute Smoking greater than 20 pack years chronic Nocturnal hypoxia acute Smoking greater than 20 pack years chronic Dog bite of right lower leg acute [facility] Work Phone: evaluation note* Diagnosis Encounter for screening mammogram for breast cancer documented in this encounter [facility] note* Diagnosis Onset Date Resolution Status Nocturnal hypoxia acute Smoking greater than 20 pack years chronic Dog bite of right lower leg acute Nocturnal hypoxia acute Smoking greater than 20 pack years chronic [facility] Work Phone: [email or web address] note* Diagnosis Onset Date Resolution Status Dog bite of right lower leg acute Nocturnal hypoxia acute Smoking greater than 20 pack years [facility] Work Phone: evaluation note* Diagnosis Onset Date Resolution Status Nocturnal hypoxia chronic Smoking greater than 20 pack years chronic Nocturnal hypoxia chronic Smoking greater than 20 pack years chronic [facility] Work Phone: evaluation note* Diagnosis Encounter for screening mammogram for breast cancer documented in this encounter [facility] Discharge instructions Additional Instructions This may or may not be secondary to seasonal allergies. Prednisone 40 mg once a day for 1 week. Follow-up with your doctor if not improving. Return the emergency department if you are feeling worse. Your exam is normal today.[facility] Work Phone: [facility] for referral (narrative)* Diagnostic Procedure Only (Routine) - Pending Review Specialty Diagnoses / Procedures Referred By Stephane lawson Referred To Contact [facility] Diagnoses Encounter for screening mammogram for breast cancer Procedures HARPREET SCREENING SCREENING MAMMOGRAPHY BI 2-VIEW BREAST INC Micheline Harding MD [address] [place] [address] [facility] [address] [place] [address] Referral ID Status Reason Start Date Expiration Date Visits Requested Visits Authorized [id number] Pending Review Auto-Generat ed Referral 06/14/2022 07/14/2023 1 1 T [facility] for referral (narrative)* Diagnostic Procedure Only (Routine) - Pending Review Specialty Diagnoses / Procedures Referred By Stephane lawson Referred To Contact [facility] Diagnoses Encounter for screening mammogram for breast cancer Procedures HARPREET SCREENING SCREENING MAMMOGRAPHY BI 2-VIEW BREAST INC Micheline Harding MD [address] [place] [address] [facility] [address] [place] [address] Referral ID Status Reason Start Date Expiration Date Visits Requested Visits Authorized [id number] Pending Review Auto-Generat ed Referral 07/19/2024 1 1 T [facility] for referral (narrative)* Diagnostic Procedure Only (Routine) - New Request Specialty Diagnoses / Procedures Referred By Stephane lawson Referred To Contact [facility] Diagnoses Encounter for screening mammogram for breast cancer Procedures HARPREET SCREENING W YUDI SCREENING DIGITAL BREAST TOMOSYNTHESIS BI SCREENING MAMMOGRAPHY BI 2-VIEW BREAST INC Micheline Harding MD [address] [place] [address] [facility] [address] [place] [address] Referral ID Status Reason Start Date Expiration Date Visits Requested Visits Authorized [id number] New Request Auto-Generat ed Referral 06/04/2024 07/04/2025 [facility]ative)No reason for referral information availableWSelect Medical [facility] [place] Work Phone: Advance Directives No Advanced Directives Records FoundDocuments on File Type Date Recorded 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 No February 18, 2025 1:30pm Chief Complaint and Reason for Visit Chief Complaint HX TOBACCO ABUSE SCREENING Chief Complaint OSTEPENIA Chief Complaint OSTEPENIA Sleep apnea HYPERSOMNIA NICOTINE DEP Reason for Visit Daytime hypersomnia Smoking greater than 20 pack years Chief Complaint OSTEPENIA Sleep apnea HYPERSOMNIA NICOTINE DEP 6 wk FU DOG BITE/R ANKLE/LEG SCREENING Reason for Visit Daytime hypersomnia Smoking greater than 20 pack years Nocturnal hypoxia Smoking greater than 20 pack years Dog bite of right lower leg Chief Complaint 6 wk FU DOG BITE/R ANKLE/LEG SCREENING 3 M FU Reason for Visit Nocturnal hypoxia Smoking greater than 20 pack years Dog bite of right lower leg Nocturnal hypoxia Smoking greater than 20 pack years Chief Complaint DOG BITE/R ANKLE/LEG SCREENING 3 M FU 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 Reason for Visit Dog bite of right lo wer leg Nocturnal hypoxia Smoking greater than 20 pack years Chief Complaint 3 M FU 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 3 M FU Reason for Visit Nocturnal hypoxia Smoking greater than 20 pack years Nocturnal hypoxia Smoking greater than 20 pack years Chief Complaint 6 wk FU DOG BITE/R ANKLE/LEG SCREENING 3 M FU 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 Reason for Visit Nocturnal hypoxia Smoking greater than 20 pack years Dog bite of right lower leg Nocturnal hypoxia Smoking greater than 20 pack years Chief Complaint Admit Date GENERAL February 18, 2025 11:5 4am Summary Purpose Family History No Family History Records FoundNo Family History Records Found Additional Source Comments Source Comments (unrecognize d section and content) In the event this informatio n is protected by the Federal Confidentiality of Alcohol and Drug Abuse Patient Records regulations: The Federal rules restrict any use of the information to criminally investigate or prosecute any alcohol or drug abuse patient.[facility] CenterIn the event this information is protected by the Federal Confidentiality of Alcohol and Drug Abuse Patient Records regulations: The Federal rules restrict any use of the information to criminally investigate or prosecute any alcohol or drug abuse patient.[facility] CenterIn the event this information is protected by the Federal Confidentiality of Alcohol and Drug Abuse Patient Records regulations: The Federal rules restrict any use of the information to criminally investigate or prosecute any alcohol or drug abuse patient.[facility] CenterIn the event this information is protected by the Federal Confidentiality of Alcohol and Drug Abuse Patient Records regulations: The Federal rules restrict any use of the information to criminally investigate or prosecute any alcohol or drug abuse patient.[facility] CenterIn the event this information is protected by the Federal Confidentiality of Alcohol and Drug Abuse Patient Records regulations: The Federal rules restrict any use of the information to criminally investigate or prosecute any alcohol or drug abuse patient.[facility] CenterIn the event this information is protected by the Federal Confidentiality of Alcohol and Drug Abuse Patient Records regulations: The Federal rules restrict any use of the information to criminally investigate or prosecute any alcohol or drug abuse patient.[facility] Care Teams (unrecognized sec tion and content) Nurse Examiner Relationship Specialty Start Date End Date Micheline Zuniga MD [address], [place] [id number] PCP - General Family Practice 05/07/17 Nurse Examiner Relationship Specialty Start Date End Date Micheline Zuniga MD [address], [place] [id number] PCP - General Family Practice 05/07/17 Nurse Examiner Relationship Specialty Start Date End Date Micheline Zuniga MD [address], [place] [id number] PCP - General Family Practice 05/07/17 Nurse Examiner Relationship Specialty Start Date End Date Micheline Zuniga MD [address], [place] [id number] PCP - General Family Medicine 05/07/17 Team Status: Active Member Role Status Dates Dr. Jh Aleman MD Family Provider Active Dr. Bob Stewart MD Primary Care Provider Active Team Status: Inactive Member Role Status Dates Dr. Bob Stewart MD Primary Care Provider, Attend ing Provider Active Team Status: Inactive Member Role Status Dates Dr. Bob Stewart MD Primary Care Pr ovider, Attending Provider, Referring Provider Active Team Status: Inactive Member Role Status Dates Dr. Bob Stewart MD Primary Care Provider, Referr ing Provider Active Gege Chisholm HELPER TEACHER, HELPER TEACHER-C Attending Provider Active Team Status: Active Member Role Status Dates Dr. Bob Stewart MD Primary Care Provider Active Gege Chisholm HELPER TEACHER, HELPER TEACHER-C Attending Provider, Referrin g Provider Active Team Status: Inactive Member Role Status Dates Dr. Bob Stewart MD Primary Care Provider Active Gege Chisholm HELPER TEACHER, HELPER TEACHER-C Attending Provider, Referrin g Provider Active Team Status: Inactive Member Role Status Dates Dr. Bob Stewart MD Primary Care Provider, Referr ing Provider Active Sunil Padilla PA, PA Attending Provider Active Nurse Examiner Relationship Specialty Start Date End Date Micheline Zuniga MD [address] [place] [address] PCP - General Family Medicine 05/07/17 Team Status: Inactive Member Role Status Dates Dr. Bob Stewart MD Primary Care Provider, Referr ing Provider Active Dr. David Chen MD Attending Provider Active Team Status: Active Member Role Status Dates Dr. Bob Stewart MD Primary Care Provider Active Dr. David Chen MD Referring Provider, Other Provid er Active Dr. Derick Beck DO Attending Provider Active Team Status: Active Member Role Status Dates Dr. Bob Stewart MD Primary Care Provider Active Dr. Timi Suh MD Attending Provider Active Team Status: Inactive Member Role Status Dates Dr. Bob Stewart MD Primary Care Provider Active Dr. David Chen MD Attending Provider, Referring Pr ovider Active Team Status: Inactive Member Role Status Dates Dr. Bob Stewart MD Primary Care Provider Active Dr. David Chen MD Attending Provider Active Team Status: Active Member Role Status Dates Dr. Bob Stewart MD Primary Care Provider Active Dr. Timi Suh MD Attending Provider, Referring Pr ovider Active Nurse Examiner Relationship Specialty Start Date End Date Micheline Zuniga MD [address] [place] [address] PCP - General Family Medicine 05/07/17 Team Status: Active Member Role Status Dates Dr. Bob Stewart MD Primary Care Provider Active Dr. David Chen MD Other Provider Active Dr. Derick Beck DO Attending Provider Active Team Status: Active Member Role Status Dates Dr. Bob Stewart MD Primary Care Provider Active Team Status: Inactive Member Role Status Dates Dr. Bob Stewart MD Primary Care Provider Active Start: February 18, 2025 End: February 18, 2025 Dr. Javon Hairston MD Emergency Provider Active S tart: February 18, 2025 End: February 18, 2025 Reason for Visit (unrecogniz ed section and content) Reason Onset Date Comments Refill Request 12/28/2021 Reason Comments Follow Up Goals (unrecognized section and content) Goals may be documented in a n alternate sectionGoals may be documented in an alternate sectionGoals may be documented in an alternate sectionGoals may be documented in an alternate sectionGoals may be documented in an alternate sectionGoals may be documented in an alternate sectionGoals may be documented in an alternate sectionGoals may be documented in an alternate sectionGoals may be documented in an alternate sectionGoals may be documented in an alternate sectionGoals may be documented in an alternate sectionGoals may be documented in an alternate section INFORMATION SOURCE (unrecogn ized section and content) DATE CREATED AUTHOR 06/09/2024 [facility] DATE CREATED AUTHOR AUTHOR'S ORGANIZ ATION 04/17/2025 [facility] FOR RECORDS PERTAINING TO PATIENTS WHO ARE OR HAVE BEEN ENROLLED IN A CHEMICAL DEPENDENCY/SUBSTANCEABUSE PROGRAM, SOME INFORMATION MAY BE OMITTED. This clinical summary was aggregated from multiple sources. Caution should be exercised in using it in the provision of clinical care. This summary normalizes information from multiple sources, and as a consequence, information in this document may materially change the coding, format and clinical context of patient data. In addition, data may be omitted in some cases. CLINICAL DECISIONS SHOULD BE BASED ON THE PRIMARY CLINICAL RECORDS. [employer] provides no warranty or guarantee of the accuracy or completeness of information in this document.
--- OUTSIDE RECORDS SUMMARY | 2025-04-18 09:48 | XMS RPT_ITS | CCD ---
Author Organization [facility] Care Team Providers Care [employer] Gunner Name Role Phone Micheline Zuniga MD Primary Care Provider Dr. Bob Stewart Primary Care Provider [phone] Dr. Bob Stewart Referring Provider DORA Chisholm NP Attending Provider [phone] Randy ANNE PA Sunil Ponce Attending Provider Micheline Zuniga MD Primary Care Provider Dr. Bob Stewart Primary Care Provider Dr. Bob Stewart Referring Provider DORA Chisholm NP Attending Provider [phone] Ranyd ANNE, [place] Sunil Ponce Attending Provider Dr. [...] Provider DORA Chisholm NP Attending Provider [phone] Micheline Zuniga MD Primary Care Provider [phone] Dr. Bob Stewart MD Primary Care Provider Dr. Javon Hairston MD Emergency Provider Bob Stewart Referring Unavailable Bob Stewart Primary Care Unavailable Bob Stewart Attending Unavailable Bob Stewart Primary Care Unavailable Javon Hairston Attending Unavailable Bob Stewart Primary Care Unavailable Kathrine TRANSFORMATION LEAD, Gege Attending Unavailable Kathrine TRANSFORMATION LEAD, Gege Referring Unavailable Bob Stewart Referring Unavailable Kathrine TRANSFORMATION LEAD, Gege Attending Unavailable Bob Stewart Primary Care Unavailable Bob Stewart Primary Care Unavailable Bob Stewart Attending Unavailable Allergies Allergy Classification Reported Allergen(s) Allergy Type Date of Onset Reaction(s) Facility (12 sources) Amoxicillin Drug Allergy 07-11-2005 [facility] (1 source) Amoxicillin Drug Allergy 02-18-2025 [facility] Repository Medications Current Medications Medication Drug Class(es) [...] 12:00am Start: 02-04-2016 take 2 tablets by [facility] once daily folic acid 1 mg tablet Take 2 tablets by mouth once daily. 180 tablet 3 02/04/2016 Active Comment on above: Take 2 tablets by [facility] once daily. Multivit With Min-Folic Acid [...] 12 Lead EKGon 02-18-2025 12 Lead EKG [facility] Cardiovascular Services [address] [place] [address] 12 Lead EKG 02/18/25 1205 MR#: [id number] Acct: [id number] Name: AQUILES MCCLENDON Rep #: [id number] : 1950 74 From: Jeromy Justice MD [...] Abnormal ECG Confirmed by Jeromy Justice ([id number]), scientific publications editor ANDRE PARDO ([id number]) on 02/19/2025 6:52:17 AM Referred By: Augustine Confirmed By: Jeromy Justice 02/19/25 0652 Date Jeromy Justice MD CC: Dr. Javon Hairston MD; Dr. Bob Stewart MD Signed Normal [facility] Emergency Department Summary on 02-18-2025 Emergency Department Summary [facility] Medical Records Department [address] [place] [address] Emergency Department Summary 02/18/25 MR#: [id number] Acct: [id number] Name: AQUILES MCCLENDON Rep #: [id number] : 1950 74 From: Javon Hairston MD [...] similar symptoms: Yes Recent Illness/Hospitalizat ion: No [facility] Medical History On home oxygen therapy Dog [...] Intermediate Rash Verified 02/18/25 11:57 Surgical History Warren teeth removed Social History Smoking Status: Former [...] urticaria EXAM Physical Exam Narrative Exam Narrative: Fopzdu-flry-ght female sitting upright in bed. Vital signs [...] all 4 extremities. 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 Dorsi plantarflexion intact. Calves are nontender [...] diaphoretic or (more content not included)... Normal [facility] Pulmonary Visit Reporton Pulmonary Visit Report [facility] [place] [address] [place], [place] [address] OFFICE VISIT Date of Service: 07/11/24 MR#: [id number] Acct: [id number] Name: AQUILES MCCLENDON Rep #: [id number] : 1950 Provider: DORA Chisholm Age/Sex: 73/F Location: [facility] Status: Signed Assessment and Plan Assessment and [...] be a very active person participating in [employer] 3 times per week. 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 Bob Stewart MD Status: [facility] Study: SCRN MAMM (CAD)W/YUDI BILAT Date of Exam: 05/11 06/03 Exam# [id number] Ordering Dr: Bob Stewart MD [id number] MAMMOGRAPHY - BILATERAL SCREENING REASON FOR EXAM: [...] delay biopsy of a clinically suspicious abnormality. [id number] Electronically Signed: Artemio Borja MD at 15:01 EDT Reading Location ID and State: [facility] / [place] , Service support , CC: Dr. Bob Stewart MD Play Back Operator: Signed Normal [facility] CBC W/Diff, Automatedon 05-11 Absolute Lymph 1.76 X10 3/uL Normal 0.83-4.51 [facility] Comment on above: Order Comment: Order Date: 05/27/24 Order Info: 0184-1 - CBCD Performed By: #### L 506.1000, L500.4050, L500.4100, L501.9985, L100.0100 #### [facility] [address] [place], [address] Absolute Neut 3.5 X10 3/uL Normal 2.0-7.7 [facility] Comment on above: Order Comment: Order Date: 05/27/24 Order Info: 0184-1 - CBCD Performed By: #### L 506.1000, L500.4050, L500.4100, L501.9985, L100.0100 #### [facility] [address] [place], [address] Basophils/100 WBC (Bld) 1.0 % Normal 0-1 [facility] Comment on above: Order Comment: Order Date: 05/27/24 Order Info: 0184-1 - CBCD Performed By: #### L 506.1000, L500.4050, L500.4100, L501.9985, L100.0100 #### [facility] [address] [place], [address] Eosinophils/100 WBC (Bld) 2.6 % Normal 0-5 [facility] Comment on above: Order Comment: Order Date: 05/27/24 Order Info: 0184-1 - CBCD Performed By: #### L 506.1000, L500.4050, L500.4100, L501.9985, L100.0100 #### [facility] [address] [place], [address] Erythrocyte distribution width (RBC) [Ratio] 12.5 % Normal 11.6-14.6 [facility] Comment on above: Order Comment: Order Date: 05/27/24 Order Info: 0184-1 - CBCD Performed By: #### L 506.1000, L500.4050, L500.4100, L501.9985, L100.0100 #### [facility] [address] [place], [address] Hematocrit (Bld) [Volume fraction] 45.4 % Normal 37-47 [facility] Comment on above: Order Comment: Order Date: 05/27/24 Order Info: 0184-1 - CBCD Performed By: #### L 506.1000, L500.4050, L500.4100, L501.9985, L100.0100 #### [facility] [address] [place], [address] Hemoglobin (Bld) [Mass/Vol] 14.7 g/dL Normal 12.0-15.0 [facility] Comment on above: Order Comment: Order Date: 05/27/24 Order Info: 0184-1 - CBCD Performed By: #### L 506.1000, L500.4050, L500.4100, L501.9985, L100.0100 #### [facility] [address] [place], [address] IG% 0.200 Normal 0.0-0.9 [facility] Comment on above: Order Comment: Order Date: 05/27/24 Order Info: 0184-1 - CBCD Result Comment: IG% - Immature Granulocytes (promyelocytes, myelocytes and metamyelocytes) > 1% indicates that a LEFT SHIFT is Present. Performed By: #### L 506.1000, L500.4050, L500.4100, L501.9985, L100.0100 #### [facility] [address] [place], [address] Lymphocytes/100 WBC (Bld) 30.1 % Normal 19-41 [facility] Comment on above: Order Comment: Order Date: 05/27/24 Order Info: 0184-1 - CBCD Performed By: #### L 506.1000, L500.4050, L500.4100, L501.9985, L100.0100 #### [facility] [address] [place], [address] MCH (RBC) [Entitic mass] 30.1 pg Normal 27.0-32.0 [facility] Comment on above: Order Comment: Order Date: 05/27/24 Order Info: 0184-1 - CBCD Performed By: #### L 506.1000, L500.4050, L500.4100, L501.9985, L100.0100 #### [facility] [address] [place], [address] MCHC (RBC) [Mass/Vol] 32.4 g/dL Normal 32-36 [facility] Comment on above: Order Comment: Order Date: 05/27/24 Order Info: 0184-1 - CBCD Performed By: #### L 506.1000, L500.4050, L500.4100, L501.9985, L100.0100 #### [facility] [address] [place], [address] MCV (RBC) [Entitic vol] 93.0 fL Normal 81-99 [facility] Comment on above: Order Comment: Order Date: 05/27/24 Order Info: 0184-1 - CBCD Performed By: #### L 506.1000, L500.4050, L500.4100, L501.9985, L100.0100 #### [facility] [address] [place], [address] Monocytes/100 WBC (Bld) 6.7 % Normal 0-10 [facility] Comment on above: Order Comment: Order Date: 05/27/24 Order Info: 0184-1 - CBCD Performed By: #### L 506.1000, L500.4050, L500.4100, L501.9985, L100.0100 #### [facility] [address] [place], [address] Neutrophils/100 WBC (Bld) 59.4 % Normal 47-70 [facility] Comment on above: Order Comment: Order Date: 05/27/24 Order Info: 0184-1 - CBCD Performed By: #### L 506.1000, L500.4050, L500.4100, L501.9985, L100.0100 #### [facility] [address] [place], [address] Nucleated RBC (Bld) [#/Vol] 0 10*3/uL Normal 0-5 [facility] Comment on above: Order Comment: Order Date: 05/27/24 Order Info: 0184-1 - CBCD Performed By: #### L 506.1000, L500.4050, L500.4100, L501.9985, L100.0100 #### [facility] [address] [place], [address] Platelet mean volume (Bld) [Entitic vol] 10.1 fL Normal 6.2-12.0 [facility] Comment on above: Order Comment: Order Date: 05/27/24 Order Info: 0184-1 - CBCD Performed By: #### L 506.1000, L500.4050, L500.4100, L501.9985, L100.0100 #### [facility] [address] [place], [address] Platelets (Bld) [#/Vol] 298 10*3/uL Normal 150-450 [facility] Comment on above: Order Comment: Order Date: 05/27/24 Order Info: 0184-1 - CBCD Performed By: #### L 506.1000, L500.4050, L500.4100, L501.9985, L100.0100 #### [facility] [address] [place], [address] RBC (Bld) [#/Vol] 4.88 10*6/uL Normal 4.2-5.4 [facility] Comment on above: Order Comment: Order Date: 05/27/24 Order Info: 0184-1 - CBCD Performed By: #### L 506.1000, L500.4050, L500.4100, L501.9985, L100.0100 #### [facility] [address] [place], [address] RDW SD 42.7 fl Normal 35.1-43.9 [facility] Comment on above: Order Comment: Order Date: 05/27/24 Order Info: 0184-1 - CBCD Performed By: #### L 506.1000, L500.4050, L500.4100, L501.9985, L100.0100 #### [facility] [address] [place], [address] WBC (Bld) [#/Vol] 5.8 10*3/uL Normal 4.4-11.0 [facility] Comment on above: Order Comment: Order Date: 05/27/24 Order Info: 0184-1 - CBCD Performed By: #### L 506.1000, L500.4050, L500.4100, L501.9985, L100.0100 #### [facility] [address] [place], [address] Comprehensive Metabolic Prof ilon 05-27-2024 Albumin [Mass/Vol] 3.9 g/dL Normal 3.2-5.0 [facility] Comment on above: Order Comment: Order Date: 08/19/23 Order Info: 0667-1 - BMP Order Date: 05/27/24 Order Info: 0786-1 - CMP Order Info: [id number] - LIPID Performed By: #### L 506.1000, L500.4050, L500.4100, L501.9985, L100.0100 #### [facility] [address] [place], [address] Albumin/Globulin [Mass ratio] 1.1 {ratio} Normal 0.9-2.4 [facility] Comment on above: Order Comment: Order Date: 08/19/23 Order Info: 0667- - BMP Order Date: 05/27/24 Order Info: 07 - CMP Order Info: [id number] - LIPID Performed By: #### L 506.1000, L500.4050, L500.4100, L501.9985, L100.0100 #### [facility] [address] [place], [address] ALK P 100 U/L Normal 45-117 [facility] Comment on above: Order Comment: Order Date: 08/19/23 Order Info: 0667-1 - BMP Order Date: 05/27/24 Order Info: 0786- - CMP Order Info: [id number] - LIPID Performed By: #### L 506.1000, L500.4050, L500.4100, L501.9985, L100.0100 #### [facility] [address] [place], [place], [address] ALT [Catalytic activity/Vol] 23 U/L Normal 13-56 [facility] Comment on above: Order Comment: Order Date: 08/19/23 Order Info: 0667-1 - BMP Order Date: 05/27/24 Order Info: 0786- - CMP Order Info: [id number] - LIPID Performed By: #### L 506.1000, L500.4050, L500.4100, L501.9985, L100.0100 #### [facility] [address] [place], [address] AST [Catalytic activity/Vol] 19 U/L Normal 15-37 [facility] Comment on above: Order Comment: Order Date: 08/19/23 Order Info: 0667- - BMP Order Date: 05/27/24 Order Info: 0786-1 - CMP Order Info: [id number] - LIPID Performed By: #### L 506.1000, L500.4050, L500.4100, L501.9985, L100.0100 #### [facility] [address] [place], [address] Bilirubin [Mass/Vol] 0.40 mg/dL Normal 0.20-1.00 [facility] Comment on above: Order Comment: Order Date: 08/19/23 Order Info: 0667- - BMP Order Date: 05/27/24 Order Info: 0786- - CMP Order Info: [id number] - LIPID Result Comment: For patients on eltrombopag therapy, use of Dimension [place] TBIL is not recommended. Performed By: #### L 506.1000, L500.4050, L500.4100, L501.9985, L100.0100 #### [facility] [address] [place], [address] BUN/CRE 14.1 RATIO Normal 10-20 [facility] Comment on above: Order Comment: Order Date: 08/19/23 Order Info: 0667- - BMP Order Date: 05/27/24 Order Info: 0786-1 - CMP Order Info: [id number] - LIPID Performed By: #### L 506.1000, L500.4050, L500.4100, L501.9985, L100.0100 #### [facility] [address] [place], [address] CA,Total 9.3 mg/dL Normal 8.5-10.1 [facility] Comment on above: Order Comment: Order Date: 08/19/23 Order Info: 666-09 - BMP Order Date: 05/27/24 Order Info: 785-09 - CMP Order Info: [id number] - LIPID Performed By: #### L 506.1000, L500.4050, L500.4100, L501.9985, L100.0100 #### [facility] [address] [place], [address] Chloride [Moles/Vol] 106 mmol/L Normal 98-107 [facility] Comment on above: Order Comment: Order Date: 08/19/23 Order Info: 666-09 - BMP Order Date: 05/27/24 Order Info: 785-09 - CMP Order Info: [id number] - LIPID Performed By: #### L 506.1000, L500.4050, L500.4100, L501.9985, L100.0100 #### [facility] [address] [place], [address] CO2 [Moles/Vol] 29.0 mmol/L Normal 21.0-32.0 [facility] Comment on above: Order Comment: Order Date: 08/19/23 Order Info: 666-09 - BMP Order Date: 05/27/24 Order Info: 785-09 - CMP Order Info: [id number] - LIPID Performed By: #### L 506.1000, L500.4050, L500.4100, L501.9985, L100.0100 #### [facility] [address] [place], [address] Creatinine [Mass/Vol] 0.92 mg/dL Normal 0.55-1.02 [facility] Comment on above: Order Comment: Order Date: 08/19/23 Order Info: 666-09 - BMP Order Date: 05/27/24 Order Info: 785-09 - CMP Order Info: [id number] - LIPID Result Comment: The validity of the calculated GFR GFRAA in patients over 70 years has not been determined. Clinical correlation is essential. Performed By: #### L 506.1000, L500.4050, L500.4100, L501.9985, L100.0100 #### [facility] [address] [place], [address] EST GFR - AA 77 mL/min Normal >60 [facility] Comment on above: Order Comment: Order Date: 08/19/23 Order Info: 0667- - BMP Order Date: 05/27/24 Order Info: 0786- - CMP Order Info: [id number] - LIPID Result Comment: Afri can [place] GFR Calc Performed By: #### L 506.1000, L500.4050, L500.4100, L501.9985, L100.0100 #### [facility] [address] [place], [address] GAP 4 Low 5-15 [facility] Comment on above: Order Comment: Order Date: 08/19/23 Order Info: 06- - BMP Order Date: 05/27/24 Order Info: 0786- - CMP Order Info: [id number] - LIPID Performed By: #### L 506.1000, L500.4050, L500.4100, L501.9985, L100.0100 #### [facility] [address] [place], [address] GFR/1.73 sq M.predicted among non-blacks MDRD (S/P/Bld) [Vol rate/Area] 64 mL/min/{1.73_m2} Normal >60 [facility] Comment on above: Order Comment: Order Date: 08/19/23 Order Info: 0667-1 - BMP Order Date: 05/27/24 Order Info: 0786- - CMP Order Info: [id number] - LIPID Result Comment: Non- GFR Calc Performed By: #### L 506.1000, L500.4050, L500.4100, L501.9985, L100.0100 #### [facility] [address] [place], [address] Globulin (S) [Mass/Vol] 3.4 g/dL Normal 2.2-4.2 [facility] Comment on above: Order Comment: Order Date: 08/19/23 Order Info: 666- - BMP Order Date: 05/27/24 Order Info: 86- - CMP Order Info: [id number] - LIPID Performed By: #### L 506.1000, L500.4050, L500.4100, L501.9985, L100.0100 #### [facility] [address] [place], [address] Glucose [Mass/Vol] 99 mg/dL Normal 74-106 [facility] Comment on above: Order Comment: Order Date: 08/19/23 Order Info: 666-09 - BMP Order Date: 05/27/24 Order Info: 785-09 - CMP Order Info: [id number] - LIPID Performed By: #### L 506.1000, L500.4050, L500.4100, L501.9985, L100.0100 #### [facility] [address] [place], [address] Potassium [Moles/Vol] 4.0 mmol/L Normal 3.5-5.1 [facility] Comment on above: Order Comment: Order Date: 08/19/23 Order Info: 666- - BMP Order Date: 05/27/24 Order Info: 0786- - CMP Order Info: [id number] - LIPID Performed By: #### L 506.1000, L500.4050, L500.4100, L501.9985, L100.0100 #### [facility] [address] [place], [address] Sodium [Moles/Vol] 139 mmol/L Normal 136-145 [facility] Comment on above: Order Comment: Order Date: 08/19/23 Order Info: 67- - BMP Order Date: 05/27/24 Order Info: 07-1 - CMP Order Info: [id number] - LIPID Performed By: #### L 506.1000, L500.4050, L500.4100, L501.9985, L100.0100 #### [facility] [address] [place], [address] T PROT 7.3 g/dL Normal 6.4-8.2 [facility] Comment on above: Order Comment: Order Date: 08/19/23 Order Info: 0667-1 - BMP Order Date: 05/27/24 Order Info: 0786-1 - CMP Order Info: [id number] - LIPID Performed By: #### L 506.1000, L500.4050, L500.4100, L501.9985, L100.0100 #### [facility] [address] [place], [address] Urea nitrogen [Mass/Vol] 13 mg/dL Normal 7-18 [facility] Comment on above: Order Comment: Order Date: 08/19/23 Order Info: 0667-1 - BMP Order Date: 05/27/24 Order Info: 0786-1 - CMP Order Info: [id number] - LIPID Performed By: #### L 506.1000, L500.4050, L500.4100, L501.9985, L100.0100 #### [facility] [address] [place], [address] Hemoglobin A1con 05-27-2024 HbA1c (Bld) [Mass fraction] 5.6 % Normal 3.8-5.6 [facility] Comment on above: Order Comment: Order Date: 05/27/24 Order Info: 4548-4 - A1C Result Comment: Norm al < 5.7 % Prediabetic 5.7 - 6.4 % Diabetic >or= 6.5 % Please note range changes. Performed By: #### L 506.1000, L500.4050, L500.4100, L501.9985, L100.0100 #### [facility] [address] [place], [address] Lipid Profileon 05-27-2024 Cholesterol [Mass/Vol] 186 mg/dL Normal 200 [facility] Comment on above: Order Comment: Order Date: 08/19/23 Order Info: 666- - BMP Order Date: 05/27/24 Order Info: 0786-1 - CMP Order Info: [id number] - LIPID Result Comment: <200 mg/dL Desirable 200-240 mg/dL Borderline >240 mg/dL High Risk Performed By: #### L 506.1000, L500.4050, L500.4100, L501.9985, L100.0100 #### [facility] [address] [place], [place], [address] Cholesterol in HDL [Mass/Vol] 63 mg/dL Normal [facility] Comment on above: Order Comment: Order Date: 08/19/23 Order Info: 666- - BMP Order Date: 05/27/24 Order Info: 07 - CMP Order Info: [id number] - LIPID Result Comment: The drugs N-Acetylcysteine and Metamizole may falsely depress this assay. Reference Range HDL <40 mg/dL Low HDL Cholesterol HDL >or= 60 mg/dL High HDL Cholesterol Performed By: #### L 506.1000, L500.4050, L500.4100, L501.9985, L100.0100 #### [facility] [address] [place], [place], [address] Cholesterol in LDL [Mass/Vol] 108 mg/dL Normal 0-130 [facility] Comment on above: Order Comment: Order Date: 08/19/23 Order Info: 06- - BMP Order Date: 05/27/24 Order Info: 0786- - CMP Order Info: [id number] - LIPID Performed By: #### L 506.1000, L500.4050, L500.4100, L501.9985, L100.0100 #### [facility] [address] [place], [place], [address] Cholesterol in VLDL [Mass/Vol] 15 mg/dL Normal 5-40 [facility] Comment on above: Order Comment: Order Date: 08/19/23 Order Info: 0667-1 - BMP Order Date: 05/27/24 Order Info: 0786-1 - CMP Order Info: [id number] - LIPID Performed By: #### L 506.1000, L500.4050, L500.4100, L501.9985, L100.0100 #### [facility] [address] [place], [place], [address] Triglyceride [Mass/Vol] 75 mg/dL Normal [facility] Comment on above: Order Comment: Order Date: 08/19/23 Order Info: 0667-1 - BMP Order Date: 05/27/24 Order Info: 0786-1 - CMP Order Info: [id number] - LIPID Result Comment: The drugs N-Acetylcysteine and Metamizole may falsely depress this assay. Serum Triglycerides Reference Interval Normal <150 mg/dL Borderline high 150 - 199 mg/dL High 200 - 499 mg/dL Very High > or = 500 mg/dL Performed By: #### L 506.1000, L500.4050, L500.4100, L501.9985, L100.0100 #### [facility] [address] [place], [place], [address] Vitamin D,25 Hydroxyon 05-27 Vitamin D 25-OH 49.2 ng/mL Normal [facility] Comment on above: Order Comment: Order Date: 05/27/24 Order Info: 85433-0 - VITD25 Result Comment: Krystle min D 25(OH) Status Range Deficiency <20 ng/mL (50nmol/L) Insufficiency 20 - 30 ng/mL (50 - 75 nmol/L) Sufficiency 30 - 100 ng/mL (75 - 250 nmol/L) Toxicity >100 ng/mL (>250 nmol/L) Performed By: #### L 506.1000, L500.4050, L500.4100, L501.9985, L100.0100 #### [facility] [address] [place], [place], [address] Basophil percentageOrdered B y: Nyasia Stathopoulos on 11-07-2023 Bilirubin [Mass/Vol] 0.50 mg/dL 0.20-1.00 [facility] Comment on above: For patients on eltr ombopag therapy, use of Dimension [place] TBIL is not recommended. Chloride [Moles/Vol] 106 mmol/L 98-107 [facility] Cholesterol [Mass/Vol] 201 mg/dL <200 [facility] [facility] Comment on above: <200 mg/dL Desirable 200-240 mg/dL Borderline >240 mg/dL High Risk Glucose [Mass/Vol] 131 mg/dL 74-106 [facility] Comment on above: Fasting Glucose resu lt greater than or equal to 126 mg/dL suggests DIABETES MELLITUS per A.D.A. criteria. Hemoglobin (Bld) [Mass/Vol] 15.4 g/dL 12.0-15.0 [facility] Potassium [Moles/Vol] 3.7 mmol/L 3.5-5.1 [facility] Protein [Mass/Vol] 7.7 g/dL 6.4-8.2 [facility] Sodium [Moles/Vol] 140 mmol/L 136-145 [facility] Triglyceride [Mass/Vol] 139 mg/dL <199 [facility] Comment on above: The drugs N-Acetylcy steine and Metamizole may falsely depress this assay.Serum Triglycerides Reference Interval Normal <150 mg/dL Borderline high 150 - 199 mg/dL High 200 - 499 mg/dL Very High > or = 500 mg/dL WBC (Bld) [#/Vol] 6.7 10*3/uL 4.4-11.0 [facility] Determination of erythrocyte mean corpuscular volume (MCV)Ordered By: Nyasia Apodaca on 11-07-2023 MCV (RBC) [Entitic vol] 94.1 fL 81-99 [facility] Erythrocyte distribution wid th ratioOrdered By: Nyasia Statalirezaouldonnie on 11-07-2023 Erythrocyte distribution width (RBC) [Ratio] 12.6 % 11.6-14.6 [facility] Erythrocyte distribution wid th standard deviationOrdered By: Nyasia Statclifton on 11-07-2023 Erythrocyte distribution width (RBC) [Entitic vol] 43.5 fL 35.1-43.9 [facility] Hematocrit Auto (Bld) [Volum e fraction]Ordered By: Nyasia Apodaca on 11-07-2023 Hematocrit (Bld) [Volume fraction] 47.5 % 37-47 [facility] Laboratory - Chemistry and C hemistry - challengeOrdered By: Nyasia Apodaca on 11-07-2023 Albumin/Globulin [Mass ratio] 1.1 {ratio} 0.9-2.4 [facility] ALP [Catalytic activity/Vol] 87 U/L 45-117 [facility] ALT [Catalytic activity/Vol] 21 U/L 13-56 [facility] Cholesterol in HDL [Mass/Vol] 56 mg/dL >40 [facility] Comment on above: The drugs N-Acetylcy steine and Metamizole may falsely depress this assay. Reference Range HDL <40 mg/dL Low HDL Cholesterol HDL >or= 60 mg/dL High HDL Cholesterol Cholesterol in LDL [Mass/Vol] 117 mg/dL 0-130 [facility] CO2 [Moles/Vol] 28.0 mmol/L 21.0-32.0 [facility] Globulin (S) [Mass/Vol] 3.6 g/dL 2.2-4.2 [facility] Urea nitrogen/Creatinine [Mass ratio] 20.8 mg/mg 10-20 [facility] Laboratory - Hematology and Cell countsOrdered By: Nyasiaelizabeth Apodaca on 11-07-2023 MCH (RBC) [Entitic mass] 30.5 pg 27.0-32.0 [facility] MCHC (RBC) [Mass/Vol] 32.4 g/dL 32-36 [facility] Platelet mean volume (Bld) [Entitic vol] 10.3 fL 6.2-12.0 [facility] Platelets (Bld) [#/Vol] 306 10*3/uL 150-450 [facility] No Panel InformationOrdered By: Nyasia Apodaca on 11-07-2023 Estimated GFR (MDRD) Amer 69 mL/min >60 [facility] Comment on above: GFR Calc Estimated GFR (MDRD) Non-Af Amer 57 mL/min >60 [facility] Comment on above: Non- GFR Calc VLDL Cholesterol 28 mg/dL 5-40 [facility] RBC Auto (Bld) [#/Vol]Ordere d By: Nyasia Apodaca on 11-07-2023 RBC (Bld) [#/Vol] 5.05 10*6/uL 4.2-5.4 [facility] Serum or plasma calcium poonam urement (mass/volume)Ordered By: Nyasia Apodaca on 11-07-2023 Calcium [Mass/Vol] 9.4 mg/dL 8.5-10.1 [facility] Serum or plasma creatinine m easurement (mass/volume)Ordered By: Nyasia Apodaca on 11-07-2023 Creatinine [Mass/Vol] 1.01 mg/dL 0.55-1.02 [facility] Comment on above: The validity of the calculated GFR & GFRAA in patients over 70 years has not been determined. Clinical correlation is essential. Serum or plasma urea nitroge n measurement (mass/volume)Ordered By: Nyasia Apodaca on 11-07-2023 Urea nitrogen [Mass/Vol] 21 mg/dL 7-18 [facility] Thin prep Papanicolaou smear with manual screeningOrdered By: Nyasia Apodaca on 11-07-2023 Thin prep Papanicolaou smear with manual screening 4.1 g/dL 3.2-5.0 [facility] Thin prep Papanicolaou smear with manual screening 19 U/L 15-37 [facility] Thin prep Papanicolaou smear with manual screening 6 5-15 [facility] Whole blood hemoglobin A1c/t otal hemoglobin ratio (mass fraction)Ordered By: Nyasia Apodaca on 11-07-2023 HbA1c (Bld) [Mass fraction] 5.6 % 3.8-5.6 [facility] Comment on above: Normal < 5.7 % Predi abetic 5.7 - 6.4 % Diabetic >or= 6.5 % Please note range changes. Basophil percentageOrdered B y: Bob Stewart on 08-15-2023 Bilirubin [Mass/Vol] 0.40 mg/dL 0.20-1.00 [facility] Comment on above: For patients on eltr ombopag therapy, use of [employer]ension [place] TBIL is not recommended. Chloride [Moles/Vol] 106 mmol/L 98-107 [facility] Cholesterol [Mass/Vol] 181 mg/dL <200 [facility] Comment on above: <200 mg/dL Desirable 200-240 mg/dL Borderline >240 mg/dL High Risk Glucose [Mass/Vol] 131 mg/dL 74-106 [facility] Comment on above: Fasting Glucose resu lt greater than or equal to 126 mg/dL suggests DIABETES MELLITUS per A.D.A. criteria. Potassium [Moles/Vol] 3.7 mmol/L 3.5-5.1 [facility] Protein [Mass/Vol] 7.4 g/dL 6.4-8.2 [facility] Sodium [Moles/Vol] 139 mmol/L 136-145 [facility] Triglyceride [Mass/Vol] 165 mg/dL <199 [facility] Comment on above: The drugs N-Acetylcy steine and Metamizole may falsely depress this assay.Serum Triglycerides Reference Interval Normal <150 mg/dL Borderline high 150 - 199 mg/dL High 200 - 499 mg/dL Very High > or = 500 mg/dL WBC (Bld) [#/Vol] 6.9 10*3/uL 4.4-11.0 [facility] Blood erythrocytes count (nu mber/volume)Ordered By: Bob Stewart on 08-15-2023 RBC (Bld) [#/Vol] 4.82 10*6/uL 4.2-5.4 [facility] Blood hemoglobin measurement (mass/volume)Ordered By: Bob Stewart on 08-15-2023 Hemoglobin (Bld) [Mass/Vol] 14.6 g/dL 12.0-15.0 [facility] Blood platelet mean volumeOr dered By: Bob Stewart on 08-15-2023 Platelet mean volume (Bld) [Entitic vol] 10.3 fL 6.2-12.0 [facility] Determination of erythrocyte mean corpuscular volume (MCV)Ordered By: Bob Stewart on 08-15-2023 MCV (RBC) [Entitic vol] 96.3 fL 81-99 [facility] Hematocrit Auto (Bld) [Volum e fraction]Ordered By: Bob Stewart on 08-15-2023 Hematocrit (Bld) [Volume fraction] 46.4 % 37-47 [facility] Laboratory - Chemistry and C hemistry - challengeOrdered By: Bob Stewart on 08-15-2023 ALP [Catalytic activity/Vol] 83 U/L 45-117 [facility] ALT [Catalytic activity/Vol] 21 U/L 13-56 [facility] CO2 [Moles/Vol] 29.0 mmol/L 21.0-32.0 [facility] Globulin (S) [Mass/Vol] 3.4 g/dL 2.2-4.2 [facility] Urea nitrogen/Creatinine [Mass ratio] 20.4 mg/mg 10-20 [facility] Laboratory - Hematology and Cell countsOrdered By: Bob Stewart on 08-15-2023 Erythrocyte distribution width (RBC) [Entitic vol] 44.4 fL 35.1-43.9 [facility] Erythrocyte distribution width (RBC) [Ratio] 12.5 % 11.6-14.6 [facility] MCH (RBC) [Entitic mass] 30.3 pg 27.0-32.0 [facility] MCHC Auto (RBC) [Mass/Vol]Or dered By: Bob Stewart on 08-15-2023 MCHC (RBC) [Mass/Vol] 31.5 g/dL 32-36 [facility] No Panel InformationOrdered By: Bob Stewart on 08-15-2023 Estimated GFR (MDRD) Amer 72 mL/min >60 [facility] Comment on above: GFR Calc Estimated GFR (MDRD) Non-Af Amer 59 mL/min >60 [facility] Comment on above: Non- GFR Calc Vitamin D 25-Hydroxy 54.2 ng/mL [facility] Comment on above: Vitamin D 25(OH) Sta tus Range Deficiency <20 ng/mL (50nmol/L) Insufficiency 20 - 30 ng/mL (50 - 75 nmol/L) Sufficiency 30 - 100 ng/mL (75 - 250 nmol/L) Toxicity >100 ng/mL (>250 nmol/L) Platelets bldOrdered By: Farooq Stewart on 08-15-2023 Platelets (Bld) [#/Vol] 297 10*3/uL 150-450 [facility] Serum or plasma albumin poonam urement (mass/volume)Ordered By: Bob Stewart on 08-15-2023 Albumin [Mass/Vol] 4.0 g/dL 3.2-5.0 [facility] Serum or plasma albumin/glob ulin mass ratioOrdered By: Bob Stewart on 08-15-2023 Albumin/Globulin [Mass ratio] 1.2 {ratio} 0.9-2.4 [facility] Serum or plasma calcium poonam urement (mass/volume)Ordered By: Bob Stewart on 08-15-2023 Calcium [Mass/Vol] 9.2 mg/dL 8.5-10.1 [facility] Serum or plasma cholesterol in HDL measurement (mass/volume)Ordered By: Bob Stewart on 08-15-2023 Cholesterol in HDL [Mass/Vol] 53 mg/dL >40 [facility] Comment on above: The drugs N-Acetylcy steine and Metamizole may falsely depress this assay. Reference Range HDL <40 mg/dL Low HDL Cholesterol HDL >or= 60 mg/dL High HDL Cholesterol Serum or plasma cholesterol in VLDL measurement (mass/volume)Ordered By: Bob Stewart on 08-15-2023 Cholesterol in VLDL [Mass/Vol] 33 mg/dL 5-40 [facility] Serum or plasma creatinine m easurement (mass/volume)Ordered By: Bob Stewart on 08-15-2023 Creatinine [Mass/Vol] 0.98 mg/dL 0.55-1.02 [facility] Comment on above: The validity of the calculated GFR & GFRAA in patients over 70 years has not been determined. Clinical correlation is essential. Serum or plasma low density lipoprotein (LDL) cholesterol measurement (mass/volume)Ordered By: Bob Stewart on 08-15-2023 Cholesterol in LDL [Mass/Vol] 95 mg/dL 0-130 [facility] Serum or plasma urea nitroge n measurement (mass/volume)Ordered By: Bob Stewart on 08-15-2023 Urea nitrogen [Mass/Vol] 20 mg/dL 7-18 [facility] Thin prep Papanicolaou smear with manual screeningOrdered By: Bob Stewart on 08-15-2023 Thin prep Papanicolaou smear with manual screening 19 U/L 15-37 [facility] Thin prep Papanicolaou smear with manual screening 4 5-15 [facility] Absolute lymphocyte countOrd ered By: Dr. Stewart on 02-08-2023 Lymphocytes Auto (Unsp spec) [#/Vol] 1.48 10*3/uL 0.83-4.51 [facility] Basophil percentageOrdered B y: Dr. Stewart on 02-08-2023 Basophils/100 WBC (Bld) 0.8 % 0-1 [facility] Bilirubin [Mass/Vol] 0.60 mg/dL 0.20-1.00 [facility] Comment on above: For patients on eltr ombopag therapy, use of [employer] [place] TBIL is not recommended. Chloride [Moles/Vol] 107 mmol/L 98-107 [facility] Cholesterol [Mass/Vol] 182 mg/dL <200 [facility] Comment on above: <200 mg/dL Desirable 200-240 mg/dL Borderline >240 mg/dL High Risk Eosinophils/100 WBC (Bld) 4.9 % 0-5 [facility] Glucose [Mass/Vol] 90 mg/dL 74-106 [facility] Neutrophils (Bld) [#/Vol] 3.7 10*3/uL 2.0-7.7 [facility] Neutrophils/100 WBC (Bld) 62.5 % 47-70 [facility] Potassium [Moles/Vol] 3.9 mmol/L 3.5-5.1 [facility] Protein [Mass/Vol] 7.5 g/dL 6.4-8.2 [facility] Sodium [Moles/Vol] 140 mmol/L 136-145 [facility] Triglyceride [Mass/Vol] 104 mg/dL <199 [facility] Comment on above: The drugs N-Acetylcy steine and Metamizole may falsely depress this assay.Serum Triglycerides Reference Interval Normal <150 mg/dL Borderline high 150 - 199 mg/dL High 200 - 499 mg/dL Very High > or = 500 mg/dL WBC (Bld) [#/Vol] 5.9 10*3/uL 4.4-11.0 [facility] Blood erythrocytes count (nu mber/volume)Ordered By: Dr. Stewart on 02-08-2023 RBC (Bld) [#/Vol] 5.01 10*6/uL 4.2-5.4 [facility] Blood hemoglobin measurement (mass/volume)Ordered By: Dr. Stewart on 02-08-2023 Hemoglobin (Bld) [Mass/Vol] 15.3 g/dL 12.0-15.0 [facility] Blood lymphocytes/100 leukoc ytesOrdered By: Dr. Stewart on 02-08-2023 Lymphocytes/100 WBC (Bld) 25.0 % 19-41 [facility] Blood monocytes/100 leukocyt esOrdered By: Dr. Stewart on 02-08-2023 Monocytes/100 WBC (Bld) 6.6 % 0-10 [facility] Blood platelet mean volumeOr dered By: Dr. Stewart on 02-08-2023 Platelet mean volume (Bld) [Entitic vol] 9.7 fL 6.2-12.0 [facility] Determination of erythrocyte mean corpuscular volume (MCV)Ordered By: Dr. Stewart on 02-08-2023 MCV (RBC) [Entitic vol] 94.4 fL 81-99 [facility] Hematocrit Auto (Bld) [Volum e fraction]Ordered By: Dr. Stewart on 02-08-2023 Hematocrit (Bld) [Volume fraction] 47.3 % 37-47 [facility] Laboratory - Chemistry and C hemistry - challengeOrdered By: Dr. Stewart on 02-08-2023 ALP [Catalytic activity/Vol] 107 U/L 45-117 [facility] ALT [Catalytic activity/Vol] 26 U/L 13-56 [facility] CO2 [Moles/Vol] 26.0 mmol/L 21.0-32.0 [facility] Globulin (S) [Mass/Vol] 3.5 g/dL 2.2-4.2 [facility] Urea nitrogen/Creatinine [Mass ratio] 21.5 mg/mg 10-20 [facility] Laboratory - Hematology and Cell countsOrdered By: Dr. Stewart on 02-08-2023 Erythrocyte distribution width (RBC) [Entitic vol] 43.1 fL 35.1-43.9 [facility] Erythrocyte distribution width (RBC) [Ratio] 12.5 % 11.6-14.6 [facility] Immature granulocytes/100 WBC (Bld) 0.200 % 0.0-0.9 [facility] Comment on above: IG% - Immature Granu locytes (promyelocytes, myelocytes and metamyelocytes) > 1% indicates that a LEFT SHIFT is Present. MCH (RBC) [Entitic mass] 30.5 pg 27.0-32.0 [facility] Nucleated RBC/100 WBC (Bld) [Ratio] 0 % 0-5 [facility] MCHC Auto (RBC) [Mass/Vol]Or dered By: Dr. Stewart on 02-08-2023 MCHC (RBC) [Mass/Vol] 32.3 g/dL 32-36 [facility] No Panel InformationOrdered By: Dr. Stewart on 02-08-2023 Estimated GFR (MDRD) Amer 81 mL/min >60 [facility] Comment on above: GFR Calc Estimated GFR (MDRD) Non-Af Amer 67 mL/min >60 [facility] Comment on above: Non- GFR Calc Vitamin D 25-Hydroxy 58.2 ng/mL [facility] Comment on above: Vitamin D 25(OH) Sta tus Range Deficiency <20 ng/mL (50nmol/L) Insufficiency 20 - 30 ng/mL (50 - 75 nmol/L) Sufficiency 30 - 100 ng/mL (75 - 250 nmol/L) Toxicity >100 ng/mL (>250 nmol/L) Platelets bldOrdered By: Dr. Stewart on 02-08-2023 Platelets (Bld) [#/Vol] 296 10*3/uL 150-450 [facility] Serum or plasma albumin poonam urement (mass/volume)Ordered By: Dr. Stewart on 02-08-2023 Albumin [Mass/Vol] 4.0 g/dL 3.2-5.0 [facility] Serum or plasma albumin/glob ulin mass ratioOrdered By: Dr. Stewart on 02-08-2023 Albumin/Globulin [Mass ratio] 1.1 {ratio} 0.9-2.4 [facility] Serum or plasma calcium poonam urement (mass/volume)Ordered By: Dr. Stewart on 02-08-2023 Calcium [Mass/Vol] 9.7 mg/dL 8.5-10.1 [facility] Serum or plasma cholesterol in HDL measurement (mass/volume)Ordered By: Dr. Stewart on 02-08-2023 Cholesterol in HDL [Mass/Vol] 59 mg/dL >40 [facility] Comment on above: The drugs N-Acetylcy steine and Metamizole may falsely depress this assay. Reference Range HDL <40 mg/dL Low HDL Cholesterol HDL >or= 60 mg/dL High HDL Cholesterol Serum or plasma cholesterol in VLDL measurement (mass/volume)Ordered By: Dr. Stewart on 02-08-2023 Cholesterol in VLDL [Mass/Vol] 21 mg/dL 5-40 [facility] Serum or plasma creatinine m easurement (mass/volume)Ordered By: Dr. Stewart on 02-08-2023 Creatinine [Mass/Vol] 0.88 mg/dL 0.55-1.02 [facility] Comment on above: The validity of the calculated GFR & GFRAA in patients over 70 years has not been determined. Clinical correlation is essential. Serum or plasma low density lipoprotein (LDL) cholesterol measurement (mass/volume)Ordered By: Dr. Stewart on 02-08-2023 Cholesterol in LDL [Mass/Vol] 102 mg/dL 0-130 [facility] Serum or plasma urea nitroge n measurement (mass/volume)Ordered By: Dr. Stewart on 02-08-2023 Urea nitrogen [Mass/Vol] 19 mg/dL 7-18 [facility] Thin prep Papanicolaou smear with manual screeningOrdered By: Dr. Stewart on 02-08-2023 Thin prep Papanicolaou smear with manual screening 20 U/L 15-37 [facility] Thin prep Papanicolaou smear with manual screening 7 5-15 [facility] Basophil percentageon 2021 Bilirubin [Mass/Vol] 0.40 mg/dL 0.20-1.00 [facility] Work Phone: Comment on above: For patients on eltr ombopag therapy, use of [employer] [place] TBIL is not recommended. Chloride [Moles/Vol] 110 mmol/L 98-[address] [facility] Work Phone: Cholesterol [Mass/Vol] 193 mg/dL <200 [facility] Work Phone: Comment on above: <200 mg/dL Desirable 200-240 mg/dL Borderline >240 mg/dL High Risk Glucose [Mass/Vol] 92 mg/dL 74-106 [facility] Work Phone: Potassium [Moles/Vol] 3.8 mmol/L 3.5-5.1 [facility] Work Phone: Protein [Mass/Vol] 7.2 g/dL 6.4-8.2 [facility] Work [facility]: Sodium [Moles/Vol] 142 mmol/L 136-145 [facility] Work Phone: Triglyceride [Mass/Vol] 153 mg/dL <199 [facility] Work Phone: Comment on above: The drugs N-Acetylcy steine and Metamizole may falsely depress this assay.Serum Triglycerides Reference Interval Normal <150 mg/dL Borderline high 150 - 199 mg/dL High 200 - 499 mg/dL Very High > or = 500 mg/dL Laboratory - Chemistry and C hemistry - challengeon 05-05-2022 ALP [Catalytic activity/Vol] 97 U/L 45-117 [facility] Work Phone: ALT [Catalytic activity/Vol] 29 U/L 13-56 [facility] Work Phone: CO2 [Moles/Vol] 30.0 mmol/L 21.0-32.0 [facility] Work Phone: Globulin (S) [Mass/Vol] 3.4 g/dL 2.2-4.2 [facility] Work Phone: Urea nitrogen/Creatinine [Mass ratio] 22.1 mg/mg 10-20 [facility] Work Phone: No Panel Informationon 05-05 Estimated GFR (MDRD) Amer 89 mL/min >60 [facility] Work Phone: Comment on above: GFR Calc Estimated GFR (MDRD) Non-Af Amer 74 mL/min >60 [facility] Work Phone: Comment on above: Non- GFR Calc Vitamin D 25-Hydroxy 57.3 ng/mL [facility] Work Phone: Comment on above: Vitamin D 25(OH) Sta tus Range Deficiency <20 ng/mL (50nmol/L) Insufficiency 20 - 30 ng/mL (50 - 75 nmol/L) Sufficiency 30 - 100 ng/mL (75 - 250 nmol/L) Toxicity >100 ng/mL (>250 nmol/L) Serum or plasma albumin poonam urement (mass/volume)on 05-05-2022 Albumin [Mass/Vol] 3.8 g/dL 3.2-5.0 [facility] Work Phone: Serum or plasma albumin/glob ulin mass ratioon 05-05-2022 Albumin/Globulin [Mass ratio] 1.1 {ratio} 0.9-2.4 [facility] Work Phone: Serum or plasma calcium poonam urement (mass/volume)on 05-05-2022 Calcium [Mass/Vol] 8.9 mg/dL 8.5-10.1 [facility] Work Phone: Serum or plasma cholesterol in HDL measurement (mass/volume)on 05-05-2022 Cholesterol in HDL [Mass/Vol] 54 mg/dL >40 [facility] Work Phone: Comment on above: The drugs N-Acetylcy steine and Metamizole may falsely depress this assay. Reference Range HDL <40 mg/dL Low HDL Cholesterol HDL >or= 60 mg/dL High HDL Cholesterol Serum or plasma cholesterol in VLDL measurement (mass/volume)on 05-05-2022 Cholesterol in VLDL [Mass/Vol] 31 mg/dL 5-40 [facility] Work Phone: Serum or plasma creatinine m easurement (mass/volume)on 05-05-2022 Creatinine [Mass/Vol] 0.82 mg/dL 0.55-1.02 [facility] Work Phone: Comment on above: The validity of the calculated GFR & GFRAA in patients over 70 years has not been determined. Clinical correlation is essential. Serum or plasma low density lipoprotein (LDL) cholesterol measurement (mass/volume)on 05-05-2022 Cholesterol in LDL [Mass/Vol] 108 mg/dL 0-130 [facility] Work Phone: Serum or plasma urea nitroge n measurement (mass/volume)on 05-05-2022 Urea nitrogen [Mass/Vol] 18 mg/dL 7-18 [facility] Work Phone: Thin prep Papanicolaou smear with manual screeningon 05-05-2022 Thin prep Papanicolaou smear with manual screening 21 U/L 15-37 [facility] Work Phone: Thin prep Papanicolaou smear with manual screening 2 5-15 [facility] Work Phone: Absolute lymphocyte counton 02-16-2022 Lymphocytes Auto (Unsp spec) [#/Vol] 1.67 10*3/uL 0.83-4.51 [facility] Work Phone: Basophil percentageon 2021 Basophil percentage 0 SEEN /hpf 0-5 [facility] Work Phone: Basophils/100 WBC (Bld) 0.7 % 0-1 [facility] Work Phone: Bilirubin [Mass/Vol] 0.50 mg/dL 0.20-1.00 [facility] Work Phone: Comment on above: For patients on eltr ombopag therapy, use of [employer] [place] TBIL is not recommended. Chloride [Moles/Vol] 105 mmol/L 98-107 [facility] Work Phone: Cholesterol [Mass/Vol] 199 mg/dL <200 [facility] Work Phone: Comment on above: <200 mg/dL Desirable 200-240 mg/dL Borderline >240 mg/dL High Risk Eosinophils/100 WBC (Bld) 2.4 % 0-5 [facility] Work Phone: Glucose [Mass/Vol] 89 mg/dL 74-106 [facility] Work Phone: Neutrophils (Bld) [#/Vol] 3.1 10*3/uL 2.0-7.7 [facility] Work Phone: Neutrophils/100 WBC (Bld) 57.6 % 47-70 [facility] Work Phone: Potassium [Moles/Vol] 3.8 mmol/L 3.5-5.1 [facility] Work Phone: Protein [Mass/Vol] 7.2 g/dL 6.4-8.2 [facility] Work Phone: Sodium [Moles/Vol] 138 mmol/L 136-145 [facility] Work Phone: Triglyceride [Mass/Vol] 92 mg/dL <199 [facility] Work Phone: Comment on above: The drugs N-Acetylcy steine and Metamizole may falsely depress this assay.Serum Triglycerides Reference Interval Normal <150 mg/dL Borderline high 150 - 199 mg/dL High 200 - 499 mg/dL Very High > or = 500 mg/dL WBC (Bld) [#/Vol] 5.4 10*3/uL 4.4-11.0 [facility] Work Phone: Bilirubin Test strip Ql (U)o n 02-16-2022 Bilirubin Ql (U) Negative Negative [facility] Work Phone: Blood erythrocytes count (nu mber/volume)on 02-16-2022 RBC (Bld) [#/Vol] 4.93 10*6/uL 4.2-5.4 [facility] Work Phone: Blood hemoglobin measurement (mass/volume)on 02-16-2022 Hemoglobin (Bld) [Mass/Vol] 15.0 g/dL 12.0-15.0 [facility] Work Phone: Blood lymphocytes/100 leukoc yteson 02-16-2022 Lymphocytes/100 WBC (Bld) 31.1 % 19-41 [facility] Work Phone: Blood monocytes/100 leukocyt eson 02-16-2022 Monocytes/100 WBC (Bld) 7.8 % 0-10 [facility] Work Phone: Blood platelet mean volumeon 02-16-2022 Platelet mean volume (Bld) [Entitic vol] 9.9 fL 6.2-12.0 [facility] Work Phone: Determination of erythrocyte mean corpuscular volume (MCV)on 02-16-2022 MCV (RBC) [Entitic vol] 93.3 fL 81-99 [facility] Work Phone: Hematocrit Auto (Bld) [Volum e fraction]on 02-16-2022 Hematocrit (Bld) [Volume fraction] 46.0 % 37-47 [facility] Work Phone: Ketones Test strip Ql (U)on 02-16-2022 Ketones Ql (U) Negative Negative [facility] Work Phone: Laboratory - Chemistry and C hemistry - challengeon 02-16-2022 ALP [Catalytic activity/Vol] 90 U/L 45-117 [facility] Work Phone: ALT [Catalytic activity/Vol] 28 U/L 13-56 [facility] Work Phone: CO2 [Moles/Vol] 29.0 mmol/L 21.0-32.0 [facility] Work Phone: Globulin (S) [Mass/Vol] 3.4 g/dL 2.2-4.2 [facility] Work Phone: Urea nitrogen/Creatinine [Mass ratio] 21.1 mg/mg 10-20 [facility] Work Phone: Laboratory - Hematology and Cell countson 02-16-2022 Erythrocyte distribution width (RBC) [Entitic vol] 42.9 fL 35.1-43.9 [facility] Work Phone: Erythrocyte distribution width (RBC) [Ratio] 12.5 % 11.6-14.6 [facility] Work Phone: Immature granulocytes/100 WBC (Bld) 0.400 % 0.0-0.9 [facility] Work Phone: Comment on above: IG% - Immature Granu locytes (promyelocytes, myelocytes and metamyelocytes) > 1% indicates that a LEFT SHIFT is Present. MCH (RBC) [Entitic mass] 30.4 pg 27.0-32.0 [facility] Work Phone: Nucleated RBC/100 WBC (Bld) [Ratio] 0 % 0-5 [facility] Work Phone: MCHC Auto (RBC) [Mass/Vol]on 02-16-2022 MCHC (RBC) [Mass/Vol] 32.6 g/dL 32-36 [facility] Work Phone: Mucus LM Ql (Urine sed)on Mucus Ql (Urine sed) 0 SEEN /hpf [facility] Work Phone: Nitrite Test strip Ql (U)on 02-16-2022 Nitrite Ql (U) Negative Negative [facility] Work Phone: No Panel Informationon 02-16 Estimated GFR (MDRD) Amer 84 mL/min >60 [facility] Work Phone: Comment on above: GFR Calc Estimated GFR (MDRD) Non-Af Amer 70 mL/min >60 [facility] Work Phone: Comment on above: Non- GFR Calc Vitamin D 25-Hydroxy 69.6 ng/mL [facility] Work Phone: Comment on above: Vitamin D 25(OH) Sta tus Range Deficiency <20 ng/mL (50nmol/L) Insufficiency 20 - 30 ng/mL (50 - 75 nmol/L) Sufficiency 30 - 100 ng/mL (75 - 250 nmol/L) Toxicity >100 ng/mL (>250 nmol/L) Platelets bldon 02-16-2022 Platelets (Bld) [#/Vol] 268 10*3/uL 150-450 [facility] Work Phone: Protein Test strip Ql (U)on 02-16-2022 Protein Ql (U) Negative Negative [facility] Work Phone: Serum or plasma albumin poonam urement (mass/volume)on 02-16-2022 Albumin [Mass/Vol] 3.8 g/dL 3.2-5.0 [facility] Work Phone: Serum or plasma albumin/glob ulin mass ratioon 02-16-2022 Albumin/Globulin [Mass ratio] 1.1 {ratio} 0.9-2.4 [facility] Work Phone: Serum or plasma calcium poonam urement (mass/volume)on 02-16-2022 Calcium [Mass/Vol] 9.0 mg/dL 8.5-10.1 [facility] Work Phone: Serum or plasma cholesterol in HDL measurement (mass/volume)on 02-16-2022 Cholesterol in HDL [Mass/Vol] 61 mg/dL >40 [facility] Work Phone: Comment on above: The drugs N-Acetylcy steine and Metamizole may falsely depress this assay. Reference Range HDL <40 mg/dL Low HDL Cholesterol HDL >or= 60 mg/dL High HDL Cholesterol Serum or plasma cholesterol in VLDL measurement (mass/volume)on 02-16-2022 Cholesterol in VLDL [Mass/Vol] 18 mg/dL 5-40 [facility] Work Phone: Serum or plasma creatinine m easurement (mass/volume)on 02-16-2022 Creatinine [Mass/Vol] 0.85 mg/dL 0.55-1.02 [facility] Work Phone: Comment on above: The validity of the calculated GFR & GFRAA in patients over 70 years has not been determined. Clinical correlation is essential. Serum or plasma low density lipoprotein (LDL) cholesterol measurement (mass/volume)on 02-16-2022 Cholesterol in LDL [Mass/Vol] 120 mg/dL 0-130 [facility] Work Phone: Serum or plasma urea nitroge n measurement (mass/volume)on 02-16-2022 Urea nitrogen [Mass/Vol] 18 mg/dL 7-18 [facility] Work Phone: Squamous epithelial cells de tection in urine sediment by light microscopyon 02-16-2022 Epithelial cells.squamous LM Ql (Urine sed) 0-5 SEEN /hpf 5-10 [facility] Work Phone: Thin prep Papanicolaou smear with manual screeningon 02-16-2022 Thin prep Papanicolaou smear with manual screening 19 U/L 15-37 [facility] Work Phone: Thin prep Papanicolaou smear with manual screening 4 5-15 [facility] Work Phone: Urine blood detectionon 06- RBC Ql (U) Negative Negative [facility] Work Phone: RBC Ql (U) 0 SEEN /hpf 0-5 [facility] Work Phone: Urine clarityon 02-16-2022 Clarity (U) Clear Clear [facility] Work Phone: Urine color determinationon 02-16-2022 Color (U) Yellow Yellow [facility] Work Phone: Urine creatinine measurement (mass/volume)on 02-16-2022 Creatinine (U) [Mass/Vol] 19.50 mg/dL NO RANGE EST. [facility] Work Phone: Urine glucose detectionon Glucose Ql (U) Normal mg/dl Normal [facility] Work Phone: Urine leukocyte esterase det ection by dipstickon 02-16-2022 Leukocyte esterase Test strip Ql (U) Negative Negative [facility] Work Phone: Urine pHon 02-16-2022 pH (U) 8.0 [pH] 5.0 - 8.0 [facility] Work Phone: Urine protein measurement (m ass/volume)on 02-16-2022 Protein (U) [Mass/Vol] mg/dL 0.0-11.8 [facility] Work Phone: Urine protein/creatinine mas s ratioon 02-16-2022 Protein/Creatinine (U) [Mass ratio] 297 mg/g CRE 0-200 [facility] Work Phone: Urine sediment bacteria coun t by microscopy (number/high power field)on 02-16-2022 Bacteria LM.HPF (Urine sed) [#/Area] 0 /[HPF] None Seen [facility] Work Phone: Urine specific gravity measu rementon 02-16-2022 Specific gravity (U) [Rel density] 1.010 1.002-1.030 [facility] Work Phone: Urobilinogen Auto test strip Ql (U)on 02-16-2022 Urobilinogen Ql (U) Normal mg/dl Normal [facility] Work Phone: Vital Signs Date Time Vital Sign Value Performing Clinician Faci lity 02-18-2025 13:53-0400 Body temperature 97.9 [degF] Dr. Bob Stewart MD Work Phone: [facility] 02-18-2025 13:53-0400 Diastolic blood pressure 83 mm[Hg] Dr. Bob Stewart MD Work Phone: [facility] 02-18-2025 13:53-0400 Heart rate 91 /min Dr. Bob Stewart MD Work Phone: [facility] 02-18-2025 13:53-0400 Respiratory rate 18 /min Dr. Bob Stewart MD Work Phone: [facility] 02-18-2025 13:53-0400 SaO2% (BldA) [Mass fraction] 100 % Dr. Bob Stewart MD Work Phone: [facility] 02-18-2025 13:53-0400 Systolic blood pressure 135 mm[Hg] Dr. Bob Stewart MD Work Phone: [facility] 02-18-2025 11:57-0400 Body height 165.[address] Bob Stewart MD Work Phone: 7(548)[phone] [place] [address] 02-18-2025 11:57-0400 Body mass index (BMI) [Ratio] 28.4 kg/m2 Dr. Bob Stewart MD Work Phone: 8(763)[phone] [place] [address] 02-18-2025 11:57-0400 Body weight 77.[address] Bob Stewart MD Work Phone: 8(125)[phone] [place] [address] 11-09-2023 08:03-0500 Body height 165.[address] Bob Stewart Work Phone: 0(000)[phone] [place] [address] 11-09-2023 08:03-0500 Body mass index (BMI) [Ratio] 27.6 kg/m2 Dr. Bob Stewart Work Phone: [facility] 11-09-2023 08:03-0500 Body temperature 98 [degF] Dr. Bob Stewart Work Phone: [facility] 11-09-2023 08:03-0500 Body weight 75.[address] Bob Stewart Work Phone: [facility] 11-09-2023 08:03-0500 Diastolic blood pressure 88 mm[Hg] Dr. Bob Stewart Work Phone: 7(098)[phone] [place] [address] 11-09-2023 08:03-0500 Heart rate 98 /min Dr. Bob Stewart Work Phone: [facility] 11-09-2023 08:03-0500 Respiratory rate 18 /min Dr. Bob Stewart Work Phone: [facility] 11-09-2023 08:03-0500 SaO2% (BldA) [Mass fraction] 98 % Dr. Bob Stewart Work Phone: [facility] 11-09-2023 08:03-0500 Systolic blood pressure 137 mm[Hg] Dr. Bob Stewart Work Phone: [facility] 08-09-2023 08:49-0500 Body height 165.[address] Bob Stewart Work Phone: [facility] 08-09-2023 08:41-0500 Body mass index (BMI) [Ratio] 28.1 kg/m2 Dr. Bob Stewart Work Phone: [facility] 08-09-2023 08:41-0500 Body temperature 97.4 [degF] Dr. Bob Stewart Work Phone: [facility] 08-09-2023 08:41-0500 Body weight 76.[address] Bob Stewart Work Phone: [facility] 08-09-2023 08:41-0500 Diastolic blood pressure 92 mm[Hg] Dr. Bob Stewart Work Phone: [facility] 08-09-2023 08:41-0500 Heart rate 94 /min Dr. Bob Stewart Work Phone: [facility] 08-09-2023 08:41-0500 Respiratory rate 18 /min Dr. Bob Stewart Work Phone: [facility] 08-09-2023 08:41-0500 SaO2% (BldA) [Mass fraction] 98 % Dr. Bob Stewart Work Phone: [facility] 08-09-2023 08:41-0500 Systolic blood pressure 148 mm[Hg] Dr. Bob Stewart Work Phone: [facility] 05-22-2023 15:45-0400 Body height 165.[address] Bob Stewart Work Phone: [facility] 05-22-2023 15:45-0400 Body mass index (BMI) [Ratio] 28.3 kg/m2 Dr. Bob Stewart Work Phone: [facility] 05-22-2023 15:45-0400 Body temperature 99.3 [degF] Dr. Bob Stewart Work Phone: [facility] 05-22-2023 15:45-0400 Body weight 77.[address] Bob Stewart Work Phone: [facility] 05-22-2023 15:45-0400 Diastolic blood pressure 110 mm[Hg] Dr. Bob Stewart Work Phone: [facility] 05-22-2023 15:45-0400 Heart rate 99 /min Dr. Bob Stewart Work Phone: [facility] 05-22-2023 15:45-0400 Respiratory rate 20 /min Dr. Bob Stewart Work Phone: [facility] 05-22-2023 15:45-0400 SaO2% (BldA) [Mass fraction] 96 % Dr. Bob Stewart Work Phone: [facility] 05-22-2023 15:45-0400 Systolic blood pressure 160 mm[Hg] Dr. Bob Stewart Work Phone: [facility] 04-27-2023 09:14-0400 Body mass index (BMI) [Ratio] 28.1 kg/m2 Dr. Bob Stewart Work Phone: [facility] 04-27-2023 09:14-0400 Body temperature 97.2 [degF] Dr. Bob Stewart Work Phone: [facility] 04-27-2023 09:14-0400 Body weight 76.[address] Bob Stewart Work Phone: [facility] 04-27-2023 09:14-0400 Diastolic blood pressure 85 mm[Hg] Dr. Bob Stewart Work Phone: [facility] 04-27-2023 09:14-0400 Heart rate 94 /min Dr. Bob Stewart Work Phone: [facility] 04-27-2023 09:14-0400 Respiratory rate 18 /min Dr. Bob Stewart Work Phone: [facility] 04-27-2023 09:14-0400 SaO2% (BldA) [Mass fraction] 97 % Dr. Bob Stewart Work Phone: [facility] 04-27-2023 09:14-0400 Systolic blood pressure 142 mm[Hg] Dr. Bob Stewart Work Phone: [facility] 03-22-2023 13:46-0400 Body height 165.[address] Bob Stewart Work Phone: [facility] 03-22-2023 13:46-0400 Body mass index (BMI) [Ratio] 27.4 kg/m2 Dr. Bob Stewart Work Phone: [facility] 03-22-2023 13:46-0400 Body temperature 97.7 [degF] Dr. Bob Stewart Work Phone: [facility] 03-22-2023 13:46-0400 Body weight 74.[address] Bob Stewart Work Phone: [facility] 03-22-2023 13:46-0400 Diastolic blood pressure 84 mm[Hg] Dr. Bob Stewart Work Phone: [facility] 03-22-2023 13:46-0400 Heart rate 97 /min Dr. Bob Stewart Work Phone: [facility] 03-22-2023 13:46-0400 Respiratory rate 18 /min Dr. Bob Stewart Work Phone: [facility] 03-22-2023 13:46-0400 SaO2% (BldA) [Mass fraction] 99 % Dr. Bob Stewart Work Phone: [facility] 03-22-2023 13:46-0400 Systolic blood pressure 149 mm[Hg] Dr. Bob Stewart Work Phone: [facility] 01-16-2022 13:07-0400 Body weight 75.3 kg Micheline Zuniga MD Work Phone: [facility] 01-16-2022 13:07-0400 Diastolic blood pressure 82 mm[Hg] Micheline Zuniga MD Work Phone: [facility] 01-16-2022 13:07-0400 Heart rate 80 /min Micheline Zuniga MD Work Phone: [facility] 01-16-2022 13:07-0400 Systolic blood pressure 128 mm[Hg] Micheline Zuniga MD Work Phone: [facility] Encounters Encounter Date Encounter Type Care Provider Facility Start: 04-18-2025 ambulatory Bob Stewart [facility] y:[facility] Start: 02-18-2025 End: 02-18-2025 Emergency department patient visit Dr. Bob Stewart MD Work Phone: -Emergency Department Work Phone: Start: 07-11-2024 End: 07-11-2024 ambulatory Bob Stewart Facility:[facility] Start: 06-04-2024 End: 06-09-2024 ambulatory Micheline Zuniga MD Work Phone: Internal Medicine [place] [address] Start: 05-29-2024 End: 05-29-2024 ambulatory Bob Stewart Facility:[facility] Start: 05-27-2024 End: 05-27-2024 ambulatory Bob Stewart Facility:[facility] Start: 11-09-2023 End: 11-09-[address] Bob Stewart Work Phone: [facility] [place] Work Phone: Start: 11-07-2023 End: 11-07-[address] Bob Stewart Work Phone: [facility] Work Phone: Start: 11-07-2023 End: 11-07-[address] Bob Stewart Work Phone: [facility] Start: 09-13-2023 Non-patient / Non-visit Dr. Adeline Stewart Work Phone: [facility] Start: 09-13-2023 End: 09-13-[address] Bob Stewart Work Phone: [facility] Work Phone: Start: 09-13-2023 End: 09-13-[address] Bob Stewart Work Phone: [facility]-Cardiovascular Services Work Phone: Start: 08-23-2023 Non-patient / Non-visit Dr. Adeline Stewart Work Phone: [facility] Start: 08-22-2023 End: 08-22-[address] Bob Stewart Work Phone: [facility] Work Phone: Start: 08-22-2023 End: 08-22-[address] Bob Stewart Work Phone: [facility]-Pulmonary Services/Neurology Work Phone: Start: 08-15-2023 End: 08-15-[address] Bob Stewart Work Phone: [facility] Work Phone: Start: 08-15-2023 End: 08-15-[address] Bob Stewart Work Phone: [facility] Start: 08-09-2023 End: 08-09-[address] Bob Stewart Work Phone: [facility]Pulmonary Medicine [facility] Work Phone: Start: 06-20-2023 ambulatory Micheline Zuniga MD Work Phone: Internal Medicine [facility] Start: 05-28-2023 End: 05-28-[address] Bob Stewart Work Phone: [facility] Work Phone: Start: 05-28-2023 End: 05-28-[address] Bob Stewart Work Phone: [facility]-Outpatient Breast Imaging Work Phone: Start: 05-22-2023 End: 05-22-[address] Bob Stewart Work Phone: [facility] Work Phone: Start: 04-27-2023 End: 04-27-[address] Bob Stewart Work Phone: [facility]Pulmonary Medicine [facility] Work Phone: Start: 04-04-2023 End: 04-04-[address] Bob Stewart Work Phone: [facility] Work Phone: Start: 04-04-2023 End: 04-04-[address] Bob Stewart Work Phone: [facility]-Cat Scan, [facility] Work Phone: Start: 04-02-2023 End: 04-02-[address] Bob Stewart Work Phone: [facility] Work Phone: Start: 04-02-2023 End: 04-02-[address] Bob Stewart Work Phone: [facility]-Sleep Lab Work Phone: Start: 03-22-2023 End: 03-22-[address] [facility]r [facility] Work Phone: Start: 03-08-2023 End: 03-08-2023 ambulatory [facility] Work Phone: Start: 03-08-2023 End: 03-08-2023 Patient encounter procedure [facility]-Outpatient Bone Densitometry Work Phone: Start: 02-08-2023 End: 02-08-2023 ambulatory [facility] Work Phone: Start: 02-08-2023 End: 02-08-2023 [facility] Start: 06-14-2022 ambulatory Micheline Zuniga MD Work Phone: Internal Medicine [facility] Start: 05-24-2022 End: 05-24-2022 ambulatory [facility] Work Phone: Start: 05-24-2022 End: 05-24-2022 Patient encounter procedure [facility]-Outpatient Breast Imaging Start: 05-05-2022 End: 05-05-2022 Patient encounter [facility] Start: 03-24-2022 End: 03-24-2022 Patient encounter procedure [facility]-Cat Scan, [facility] Start: 02-16-2022 End: 02-16-2022 Patient encounter procedure [facility] Start: 01-16-2022 End: 01-16-2022 Patient encounter procedure Micheline Zuniga MD Work Phone: [facility] Comment on above: Mixed hyperlipidemia (Primary Dx); Polycythemia Start: 12-29-2021 Patient Msg Gwen Rizzo [employer] Work Phone: [facility] Comment on above: Refill request Start: 12-28-2021 Refill Micheline Zuniga MD Work Phone: [facility] Comment on above: Refill Request Procedures Date [...] Work Phone: Start: 04-27-2021 Mammography Gwen cole [employer] Work Phone: Start: 10-17-2018 Adult depression scr eening assessment Gwen Rizzo [employer] Work Phone: Start: 04-18-2018 Colonoscopy Gwen cole [employer] Work Phone: Plan of Treatment Date Care Activity Detail Author Start: 04-18-2028 Colonoscopy COLONOSCOPY [facility] Start: 04-18-2028 COLORECTAL CANCER SCREENING COLORECTAL CANCER SCREENING [facility] Start: 04-18-2028 Screening for malign ant neoplasm of colon [facility] Start: 01-10-2027 Lipid 1996 panel - Serum or Plasma Lipid Screening [facility] Start: 01-10-2027 Lipid panel Lipid Screening [facility] Start: 01-10-2027 LIPID SCREEN LIPID SCREEN [facility] Start: 2026 RSV Vaccine (1 - 1-d ose 75+ series) RSV Vaccine (1 - 1-dose 75+ series) [facility] Start: 09-13-2025 LIPID SCREEN LIPID SCREEN [facility] Start: 02-18-2025 [facility] Start: 01-10-2025 DIABETES SCREEN DIABETES SCREEN [facility] Start: 01-10-2025 Diabetes Screening Diabetes Screenin g [facility] Start: 05-11-2024 Covid-19 Vaccine ( season) Covid-19 Vaccine () [facility] Start: 05-11-2024 Influenza vaccination Influenza Vacc ine (#1) [facility] Start: 09-13-2023 DIABETES SCREEN DIABETES SCREEN [facility] Start: 09-10-2023 Advance Directive Discussion Advance Directive Discussion [facility] Start: 05-11-2023 Influenza vaccination Influenza Vacc ine (#1) [facility] Start: 01-16-2023 Adult depression screening assessment DEPRESSION SCREENING [facility] Start: 09-10-2022 Advance Directive Discussion Advance Directive Discussion [facility] Start: 09-10-2022 Depression Assessment Depression Ass essment [facility] Start: 05-11-2022 Influenza vaccination INFLUENZA (#1) [facility] Start: 04-27-2022 Mammography [facility] Start: 04-27-2022 Screening for malign ant neoplasm of breast Mammogram Screening [facility] Start: 02-27-2022 End: 04-29-2022 CBC W Auto Differential panel - Blood CBC + DIFF Lab Routine Polycythemia Expected: 02/27/2022, Expires: 04/29/2022 [facility] Work Phone: Comment on above: Expected: 02/27/2022 , Expires: 04/29/2022 Start: 02-27-2022 End: 04-29-2022 HEPATIC FUNCTION PNL HEPATIC FUNCTION PNL Lab Routine Mixed hyperlipidemia Expected: 02/27/2022, Expires: 04/29/2022 [facility] Work Phone: Comment on above: Expected: 02/27/2022 , Expires: 04/29/2022 Start: 02-27-2022 End: 04-29-2022 LIPID PANEL BASIC LIPID PANEL BASIC Lab Routine Mixed hyperlipidemia Expected: 02/27/2022, Expires: 04/29/2022 [facility] Work Phone: Comment on above: Expected: 02/27/2022 , Expires: 04/29/2022 Start: 09-10-2021 ADVANCE DIRECTIVE DISCUSSION ADVANCE DIRECTIVE DISCUSSION [facility] Start: 09-10-2021 DEPRESSION ASSESSMENT DEPRESSION ASS ESSMENT [facility] Start: 10-17-2019 Adult depression screening assessment DEPRESSION SCREENING [facility] Start: 09-20-2019 Urine microalbumin profile [facility] Start: 02-07-2016 FECAL OCCULT BLOOD FECAL OCCULT BLOO D [facility] Start: 02-07-2016 Screening for malign ant neoplasm of colon Fecal Occult Blood [facility] Start: 06-29-2014 SHINGRIX VACCINE (2 of 3) SHINGRIX VACCINE (2 of 3) [facility] Start: 1996 COLOGUARD (FIT-DNA) COLOGUARD (FIT-D NA) [facility] Start: [address] COLONOGRAPHY [facility] Start: 1996 Screening for malign ant neoplasm of colon [facility] Start: 1996 SIGMOIDOSCOPY SIGMOIDOSCOPY [facility] Start: 1969 Anxiety Screening Anxiety Screening [facility] Start: 1969 Depression Screening Depression Scre ening [facility] Start: 1956 COVID-19 VACCINE (#1) COVID-19 VACCI NE (#1) [facility] Start: 1956 COVID-19 VACCINE (1) COVID-19 VACCIN E (1) [facility] Start: 01-28-1952 COVID-19 VACCINE (#1) COVID-19 VACCI NE (#1) [facility] CT Chest [facility] End: 07-04-2025 DBT Breast - bilateral screening HRAPREET SCREENING W YUDI Radiology Routine Encounter for screening mammogram for breast cancer 1 Occurrences starting 06/04/2024 until 07/04/2025 [facility] Work Phone: Comment on above: 1 Occurrences starti ng 06/04/2024 until 07/04/2025 End: 07-19-2024 HARPREET SCREENING HARPREET SCREENING Radiology Routine Encounter for screening mammogram for breast cancer 1 Occurrences starting 06/20/2023 until 07/19/2024 [facility] Work Phone: Comment on above: 1 Occurrences starti ng 06/20/2023 until 07/19/2024 Measurement of respiratory function [facility] Patient Education ED Seasonal Allergy [facility] [facility] Work Phone: Patient referral [facility] [place] Work Phone: End: 07-14-2023 Screening mammography bi 2-view breast inc cad HARPREET SCREENING Radiology Routine Encounter for screening mammogram for breast cancer 1 Occurrences starting 06/14/2022 until 07/14/2023 [facility] Work Phone: Comment on above: 1 Occurrences starti ng 06/14/2022 until 07/14/2023 [facility] Immunizations Immunization Date Immunization Notes Care Provider Emre yan 05-22-2023 tetanus toxoid, redu caro diphtheria toxoid, and acellular pertussis vaccine, adsorbed Dr. Bob Stewart Work Phone: [facility] 06-22-2021 influenza, high dose seasonal, preservative-free Gwen Haagen [employer] FINISHER Work Phone: [facility] 06-22-2021 influenza, injectabl e, quadrivalent, preservative free Micheline Zuniga MD Work Phone: [facility] 06-22-2021 influenza virus vacc ine, unspecified formulation Micheline Zuniga MD Work Phone: [facility] 05-27-2020 influenza (aIIV4) vaccine, age 65+ yr, quadrivalent, PF (FLUAD QUADRIVALENT) Gwen Haagen [employer]KER.P[employer]S FEET FINISHER Work Phone: [facility] 05-27-2020 influenza, high dose seasonal, preservative-free Gwen Haagen [employer]LE MAKER.PIGS FEET FINISHER Work Phone: [facility] 06-19-2019 influenza, high dose seasonal, preservative-free Gwen Haagen [employer] BU[employer]LE MAKER.PIGS FEET FINISHER Work Phone: [facility] 07-31-2018 pneumococcal polysaccharide vaccine, 23 valent Gwne Haagen [employer] MAKER.PIGS FEET FINISHER Work Phone: [facility] 06-17-2018 influenza, high dose seasonal, preservative-free Gwen Haagen [employer] AND BU[employer] MAKER.PIGS FEET FINISHER Work Phone: [facility] 06-11-2017 influenza, high dose seasonal, preservative-free Gwen Haagen [employer]KER.P[employer]S FEET FINISHER Work Phone: [facility] 03-29-2017 pneumococcal conjuga te vaccine, 13 valent Gwen Haagen [employer] BU[employer] MAKER.PIGS FEET FINISHER Work Phone: [facility] 05-04-2014 zoster vaccine, live Gwen Haagen [employer] MAKER.PIGS FEET FINISHER Work Phone: [facility] 06-10-2013 influenza virus vacc ine, unspecified formulation Gwen Haagen [employer] MAKER.PIGS FEET FINISHER Work Phone: [facility] 09-20-2009 tetanus toxoid, redu caro diphtheria toxoid, and acellular pertussis vaccine, adsorbed Gwen Rizzo [employer] MAKER.PIGS FEET FINISHER Work Phone: [facility] Work Phone: 09-18-2008 pneumococcal polysaccharide vaccine, 23 valent Gwen Rizzo [employer] MAKER.PIGS FEET FINISHER Work Phone: [facility] Work Phone: 12-16-1998 diphtheria and tetan us toxoids, adsorbed for pediatric use Gwen Rizzo [employer] MAKER.PIGS FEET FINISHER Work Phone: [facility] Work Phone: Payers Date Payer Category Payer Self-pay [id number] 2023 Medicare [id number] 2023 Unknown [id number] 2016 Medicare MEDICARE MEDICAR E A AND B [id number] 2016-Present [phone] [place] [address] Medicare [id number] 2016 Medicare MEDICARE MEDICAR E A AND B [id number] 2016-Present [phone] [place] [address] Medicare [id number] 2016 Unknown SCOUT [employer] DICARE SUPPLEMENT [id number] 2016-Present [phone] [id number] [place] [address] Indemnity [id number] 2016 Unknown SCOUT [employer] DICARE SUPPLEMENT [id number] 2016-Present [phone] [address] [place] [address] Indemnity [id number] Unknown [id number] Unknown [id number] 2 Unknown [id number] 2 Unknown [id number] 2 Unknown [id number] 2 Unknown [id number] 2 Social History Date Type Detail Facility Start: 03-08-2021 End: 02-18-2025 Tobacco smoking status NHIS Ex-smoker [facility] Work Phone: Start: 09-10-1968 End: 09-10-2003 History of tobacco use Current smoker [facility] Work Phone: Start: 09-10-1968 End: 09-10-2003 History of tobacco use Cigarette Smoker [facility] Work Phone: Start: 08-15-2020 End: 03-08-2021 Cigarettes smoked current (pack per day) - Reported 0.25 [facility] Start: 03-08-2021 Tobacco use and exposure Smokeless tobacco non-user [facility] Work Phone: Start: 09-12-2021 End: 04-26-2022 Alcohol intake Current non-drinker of alcohol (finding) [facility] Start: 1950 Sex Assigned At Not on file [facility] Start: 01-06-2022 End: 01-16-2022 Exposure to SARS-CoV-2 (event) Not sure [facility] Start: 1950 Sex Assigned At Female [facility] Start: 03-22-2023 End: 08-09-2023 Tobacco smoking status NHIS Unknown if ever smoked [facility] Start: 08-15-2020 End: 04-26-2022 Tobacco use panel [facility] Adult Depression Screening Assessment 0 [facility] Mental Status Date Assessment Result Facility 02-18-2025 Cognitive function Level Of Cons ciousness Awake;Alert;Appropriate;Follow s Commands [facility] Work Phone: Clinical Notes 09-22-2010 to 02-18-2025 Note Date & Type Note Facility 02-18-2025 Discharge summary [facility] 02-18-2025 Discharge summary Note Date/Time February 18, 2025 2:00pm [facility] Medical Records Department [address] [place] [address] Emergency Department Summary 02/18/25 MR#: [id number] Acct: [id number] Name: AQUILES MCCLENDON Rep #:[id number] : 1950 74 From: Javon Hairston MD [...] Intermediate Rash Verified 02/18/25 11:57 Surgical History Warren teeth removed Social History Smoking Status: Former [...] urticaria EXAM Physical Exam Narrative Exam Narrative: [id number] female sitting upright in bed. Vital signs [...] all 4 extremities. 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 Dorsi plantarflexion intact. Calves are nontender [...] rhythm rate 86 no acute signs of NV nor ischemia Discharge Plan Triage Chief Complaint: [...] worse. Your examis normal today. Print Language: Turkish Disposition Disposition: Home, Self Care What to do if you have Problems For any increased pain, shortness of breath, bleeding, nausea or vomiting, chestpain, or any unexpected problems, contact your Primary Care Provider. Call [facility] ([phone]) or report to the closest Emergency Room. Call 911 if necessary. 02/18/25 1400 <Electronically signed by Javon Hairston MD> Cosigner Signature (if applicable): CC: Dr. Bob Stewart MD ~ Signed [facility] Work Phone: 1(658) 964-278309-25-2024 NotePatient Outreach (INTMMN) AQUILES MCCLENDON ([id number]) 1950 F Date Time Provider Department 06/04/24 MICHELINE ZUNIGA INTXIAO During your visit today, we recorded the following information about you: Allergies As of Date: 06/04/2024 Noted Allergy Reaction AMOXICILLIN 07/11/2005 4 - Hives Date Reviewed: 09/12/2021 Reviewed by: Marti Mayen (Slag Wheeler) - Fully Assessed Visit Diagnosis:Encounter for screening mammogram for breast cancer [Z12.31] Order(s):[facility] SCREENING W YUDI [[id number]] Order #: [id number] FUTURE Prescriptions as of 06/09/2024 - pravastatin [...] COLON W/O BLEED [K57.30] DISC DEGENERATION NOS [[id number]] FIBROSCLEROSIS OF BREAST [N60.39] IRRITABLE COLON [K58.9] Hypertension [I10] 09/22/2010 10/29/2012 Osteopenia [M85.80] 07/25/2011 Hyperlipidemia [E78.5] 10/29/2012 Tobacco use [Z72.0] 03/29/2017 Encounter Status:Closed by STORM OCHOA on 06/09/24[facility] 08-23-2023 Procedure [facility]10-11-2023 NotePatient Outreach (INTMMN) AQUILES MCCLENDON ([id number]) 1950 F Date Time Provider Department 06/20/23 MICHELINE ZUNIGA During your visit today, we recorded the following information about you: Allergies As of Date: 06/20/2023 Noted Allergy Reaction AMOXICILLIN 07/11/2005 4 - Hives Date Reviewed: 09/12/2021 Reviewed by: Marti Mayen LPN - Fully Assessed Visit Diagnosis:Encounter for screening mammogram for breast cancer [Z12.31] Order(s):[facility] SCREENING [[id number]] Order #: [id number] FUTURE Prescriptions as of 06/25/2023 - aspirin(ECOTRIN [...] COLON W/O BLEED [K57.30] DISC DEGENERATION NOS [[id number]] FIBROSCLEROSIS OF BREAST [N60.39] IRRITABLE COLON [K58.9] Hypertension [I10] 09/22/2010 10/29/2012 Osteopenia [M85.80] 07/25/2011 Hyperlipidemia [E78.5] 10/29/2012 Tobacco use [Z72.0] 03/29/2017 Encounter Status:Closed by Bastille NetworksUSER on 06/25/23[facility] 01-16-2022 History of Present illness Narrative* Micheline Zuniga MD - 01/16/2022 1:13 PM EDT Patient presents with: Follow Up HPI: Patient presents today for office visit for follow up. HYPERLIPIDEMIA: Patient is taking medications: Yes. Patient is watching diet: Yes. Patient denies myalgias: Yes. Patient denies gi upset: Yes Polycythemia is stable. Based on previous labs, has decreased slightly. Sunray likely secondary to smoking but has now [...] Abs Lymph 1.00 - 4.00 k/uL 1.87 Towner% % 7.2 Abs Towner <0.87 k/uL 0.44 Eosin% % 2.6 Abs [...] in annually and prn. [facility] Miscellaneous Notes* Telephone Encounter - Mark Kimble - 12/29/2021 8:55 AM EDT Patient active on [email or web address]. Patient notified via [email or web address] message. * Telephone Encounter - Gwen Rizzo [...] patient. Anh Leonardo Pss documented in this encounterAdena [facility] Center04-21-2022 Miscellaneous Notes* Telephone Encounter - Mark Kimble - 12/29/2021 8:51 AM EDT Patient notified via [email or web address] message. documented in this encounterAdena [facility] History of Past illness Narrative* Problem Noted Date Resolved Date Hypertension 09/22/2010 10/29/2012 documented as of this encounter (statuses as of 12/29/2021) [facility] History of Past illness Narrative* Problem Noted Date Resolved Date Hypertension 09/22/2010 10/29/2012 documented as of this encounter (statuses as of 12/29/2021) [facility] History of Past illness Narrative* Problem Noted Date Resolved Date Hypertension 09/22/2010 10/29/2012 documented as of this encounter (statuses as of 01/16/2022) [address]13-2011 History of Past illness Narrative* Problem Noted Date Resolved Date Hypertension 09/22/2010 10/29/2012 documented as of this encounter (statuses as of 06/19/2022) [facility] History of Past illness Narrative* Problem Noted Date Diagnosed Date Resolved Date Hypertension 09/22/2010 10/29/2012 documented as of this encounter (statuses as of 06/25/2023) [facility] note* Diagnosis Mixed hyperlipidemia- Primary Polycythemia Polycythemia vera documented in this encounter [facility] noteNo assessment information availableWPike Community Hospital Work Phone: evaluwqmvp note* Diagnosis Encounter for screening mammogram for breast cancer documented in this encounter [facility] note* Diagnosis Onset Date Resolution Status Daytime hypersomnia acute Smoking greater than 20 pack years [facility] Work Phone: evaluation note* Diagnosis Onset Date Resolution Status Daytime hypersomnia acute Smoking greater than 20 pack years chronic Nocturnal hypoxia acute Smoking greater than 20 pack years chronic Dog bite of right lower leg acute [facility] Work Phone: evaluation note* Diagnosis Encounter for screening mammogram for breast cancer documented in this encounter [facility] note* Diagnosis Onset Date Resolution Status Nocturnal hypoxia acute Smoking greater than 20 pack years chronic Dog bite of right lower leg acute Nocturnal hypoxia acute Smoking greater than 20 pack years chronic [facility] Work Phone: [email or web address] note* Diagnosis Onset Date Resolution Status Dog bite of right lower leg acute Nocturnal hypoxia acute Smoking greater than 20 pack years [facility] Work Phone: evaluation note* Diagnosis Onset Date Resolution Status Nocturnal hypoxia chronic Smoking greater than 20 pack years chronic Nocturnal hypoxia chronic Smoking greater than 20 pack years chronic [facility] Work Phone: evaluation note* Diagnosis Encounter for screening mammogram for breast cancer documented in this encounter [facility] Discharge instructions Additional Instructions This may or may not be secondary to seasonal allergies. Prednisone 40 mg once a day for 1 week. Follow-up with your doctor if not improving. Return the emergency department if you are feeling worse. Your exam is normal today.[facility] Work Phone: [facility] for referral (narrative)* Diagnostic Procedure Only (Routine) - Pending Review Specialty Diagnoses / Procedures Referred By Stephane lawson Referred To Contact [facility] Diagnoses Encounter for screening mammogram for breast cancer Procedures HARPREET SCREENING SCREENING MAMMOGRAPHY BI 2-VIEW BREAST INC Micheline Harding MD [address] [place] [address] [facility] [address] [place] [address] Referral ID Status Reason Start Date Expiration Date Visits Requested Visits Authorized [id number] Pending Review Auto-Generat ed Referral 06/14/2022 07/14/2023 1 1 T [facility] for referral (narrative)* Diagnostic Procedure Only (Routine) - Pending Review Specialty Diagnoses / Procedures Referred By Stephane lawson Referred To Contact [facility] Diagnoses Encounter for screening mammogram for breast cancer Procedures HARPREET SCREENING SCREENING MAMMOGRAPHY BI 2-VIEW BREAST INC Micheline Harding MD [address] [place] [address] [facility] [address] [place] [address] Referral ID Status Reason Start Date Expiration Date Visits Requested Visits Authorized [id number] Pending Review Auto-Generat ed Referral 07/19/2024 1 1 T [facility] for referral (narrative)* Diagnostic Procedure Only (Routine) - New Request Specialty Diagnoses / Procedures Referred By Stephane lawson Referred To Contact [facility] Diagnoses Encounter for screening mammogram for breast cancer Procedures HARPREET SCREENING W YUDI SCREENING DIGITAL BREAST TOMOSYNTHESIS BI SCREENING MAMMOGRAPHY BI 2-VIEW BREAST INC Micheline Harding MD [address] [place] [address] [facility] [address] [place] [address] Referral ID Status Reason Start Date Expiration Date Visits Requested Visits Authorized [id number] New Request Auto-Generat ed Referral 06/04/2024 07/04/2025 1 1 [facility] ([facility])No reason for referral information availableWPike Community Hospital Work Phone: Advance Directives No Advanced Directives Records FoundDocuments on File Type Date Recorded 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 No February 18, 2025 1:30pm Chief Complaint [...] or prosecute any alcohol or drug abuse patient.[facility] CenterIn the event this information is protected by the Federal Confidentiality of Alcohol and Drug Abuse Patient Records regulations: The Federal rules restrict any use of the information to criminally investigate or prosecute any alcohol or drug abuse patient.[facility] CenterIn the event this information is protected by the Federal Confidentiality of Alcohol and Drug Abuse Patient Records regulations: The Federal rules restrict any use of the information to criminally investigate or prosecute any alcohol or drug abuse patient.[facility] CenterIn the event this information is protected by the Federal Confidentiality of Alcohol and Drug Abuse Patient Records regulations: The Federal rules restrict any use of the information to criminally investigate or prosecute any alcohol or drug abuse patient.[facility] CenterIn the event this information is protected by the Federal Confidentiality of Alcohol and Drug Abuse Patient Records regulations: The Federal rules restrict any use of the information to criminally investigate or prosecute any alcohol or drug abuse patient.[facility] CenterIn the event this information is protected by the Federal Confidentiality of Alcohol and Drug Abuse Patient Records regulations: The Federal rules restrict any use of the information to criminally investigate or prosecute any alcohol or drug abuse patient.[facility] Care Teams (unrecognized sec tion and content) [employer] Altitude [employer] Defense Gunner Relationship Specialty Start Date End Date Micheline Zuniga MD [address], [place] [id number] PCP - General Family Practice 05/07/17 [employer] Alt[employer] Gunner Relationship Specialty Start Date End Date Micheline Zuniga MD [address] [place], [place] [address] PCP - General Family Practice 05/07/17 Low Altitude [employer] Defense Gunner Relationship Specialty Start Date End Date Micheline Zuniga MD [address] [place], [place] [id number] PCP - General Family Practice 05/07/17 Low Altitude [employer] Defense 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 Bob Stewart MD Primary Care Provider Active Gege Chisholm TRANSFORMATION LEAD, TRANSFORMATION LEAD-C Attending Provider, Referrin g Provider Active Team Status: Inactive Member Role Status Dates Dr. Bob Stewart MD Primary Care Provider Active Gege Chisholm TRANSFORMATION LEAD, TRANSFORMATION LEAD-C Attending Provider, Referrin g Provider Active Team Status: Inactive Member Role Status Dates Dr. Bob Stewart MD Primary Care Provider, Referr ing Provider Active Sunil Padilla PA, PA Attending Provider Active [employer] Gunner Relationship Specialty Start Date End Date Micheline Zuniga MD [address] [place] [address] PCP - General Family Medicine 05/07/17 Team [...] MD Attending Provider, Referring Pr ovider Active [employer] Alt[employer] Defense Gunner Relationship Specialty Start Date End Date Micheline Zuniga MD [address] [place] [address] PCP - General Family Medicine 05/07/17 Team [...] section and content) DATE CREATED AUTHOR 06/09/2024 [facility] DATE CREATED AUTHOR AUTHOR'S ORGANIZ ATION 04/17/2025 [facility] FOR RECORDS PERTAINING TO PATIENTS WHO [...] BE BASED ON THE PRIMARY CLINICAL RECORDS. [email or web address] provides no warranty or guarantee of the accuracy or completeness of information in this document.
== END | disposition home or self-care (01) ==
LOC: CT 09:45
PROVIDERS: PCP Family Medicine; Referring Provider Nurse Practitioner Acute Care; Visit Provider Nurse Practitioner Acute Care
DX: F17.210 Nicotine dependence, cigarettes, uncomplicated (principal)
CPT/HCPCS: 71271

== ENCOUNTER → 2025-06-10 | Outpatient (CLI) | payer MEDICARE, BC, SELFPAY ==
[2025-06-10 18:01] LABS: Hematocrit 46.5 % (37-47); Hemoglobin 15.3 g/dL (12.0-15.0); Immature Granulocytes Count 0.020 X10^3/uL (0.0-0.0); Mean Corp Hgb Conc 32.9 g/dL (32-36); Mean Corpuscular Volume 92.8 fL (81-99); Mean Platelet Vol. 10.1 fl (6.2-12.0); NRBC Flagged by Analyzer 0 % (0-5); Platelet Count 322 K/mm3 (150-450); RBC Distribution Width CV 12.3 % (11.6-14.6); RBC Distribution Width SD 41.9 fl (35.1-43.9); Red Blood Count 5.01 M/mm3 (4.2-5.4); White Blood Count 7.3 K/mm3 (4.4-11.0)
[2025-06-10 18:30] LABS: AST(SGOT) 24 U/L (<=31); Alanine Aminotransfer ALT/SGPT 17 U/L (<=34); Albumin, Serum 4.5 g/dL (3.4-4.8); Alkaline Phosphatase 106 U/L (35-104); Anion Gap 13 (5-15); BUN 17 mg/dL (4-19); BUN/Creat Ratio 19.3 RATIO (10-20); Calcium,Total 9.8 mg/dL (7.6-11.0); Carbon Dioxide 25.7 mmol/L (21.0-32.0); Chloride 103 mmol/L (98-108); Cholesterol 184 mg/dL (<=200); Globulin 2.6 g/dL (2.2-4.2); Glucose 112 mg/dL (70-99); Low Density Lipoprotein Calc. 98 mg/dL; Potassium 3.8 mmol/L (3.3-5.1); Triglycerides 133 mg/dL; Very Low Density Lipoprotein 27 mg/dL (5-40); Vitamin D,25 Hydroxy 60.9 ng/mL (30-100); cholesterol:hdl ratio screen 3.10
== END | disposition home or self-care (01) ==
LOC: MFPLAB 14:57
PROVIDERS: PCP Family Medicine; Visit Provider Family Medicine
DX: R73.09 Other abnormal glucose (principal); E78.00 Pure hypercholesterolemia, unspecified
CPT/HCPCS: 36415; 80053; 80061; 82306; 83036; 85025

== ENCOUNTER → 2025-07-02 | Outpatient (CLI) | payer MEDICARE, BC, SELFPAY ==
--- NOTE | 2025-07-02 14:55 | BD_ITS ---
PROCEDURE: DEXA BONE DENSITY STUDY 07/02/2025 REASON FOR EXAM: F, age 74 y/o . Concern for osteoporosis TECHNIQUE: Procedure Code: BDDBD Modality: DX Procedure: DEXA BONE DENSITY STUDY COMPARISON: Reviewed FINDINGS: BMD and T-SCORES Lumbar spine: 0.889 g/cm2, T-score -1.4 Left total hip: 0.810 g/cm2, T-score -1.1 The World Health Organization has defined the following categories based on bone density: Normal bone density: T-score equal to or greater than -1.0 Osteopenia: T-score between -1.0 and -2.5 Osteoporosis: T-score equal to or less than -2.5 FRAX (or Comparable) Fracture Risk Assessment: 10 Year Probability of Fracture: Major Osteoporotic Fracture: 22% Hip Fracture: 6% (Note: FRAX is not to be reported in setting of normal range bone density, osteoporosis on DEXA, known history of osteoporosis, prior osteoporotic hip or vertebral fracture, or for any patient undergoing pharmacological treatment for bone loss.) The National Osteoporosis Foundation (NOF) recommends pharmacological treatment for patients with a FRAX 10-year risk of 3% or higher for a hip fracture, or 20% or higher for a major osteoporotic fracture, to prevent osteoporosis and reduce fracture risk. BD/Dexa Bone Density Study IMPRESSION: OSTEOPENIA. Recommend follow-up as clinically warranted. Reading Location: [facility]
--- NOTE | 2025-07-02 14:55 | BI_ITS ---
EXAM: SCRN MAMM (CAD)W/YUDI BILAT DATE: 07/02/2025 CLINICAL HISTORY: F, Age 74 y/o , SCREENING TECHNIQUE: Procedure Code: [id number] Modality: MG Procedure: SCRN MAMM (CAD)W/YUDI BILAT COMPARISON: Prior exam(s) were compared FINDINGS: TISSUE DENSITY: The breasts are heterogeneously dense, which may obscure small masses. Bilateral Breast Mammographic Findings: No suspicious masses, calcifications or other abnormalities are identified. BI/SCRN MAMM (CAD)W/YUDI BILAT IMPRESSION: No mammographic evidence of malignancy in either breast. OVERALL FINAL ASSESSMENT BI-RADS 1: NEGATIVE. RECOMMENDATION: Routine annual follow-up in 1 Year Additional Recommendation none A letter with findings and recommendations will be mailed to the patient. Reading Location: [id number]
== END | disposition home or self-care (01) ==
LOC: OPBD 14:54
PROVIDERS: PCP Family Medicine; Referring Provider Family Medicine; Visit Provider Family Medicine
DX: Z12.31 Encounter for screening mammogram for malignant neoplasm of breast (principal); M85.80 Other specified disorders of bone density and structure, unspecified site; M81.0 Age-related osteoporosis without current pathological fracture
CPT/HCPCS: 77063; 77067; 77080